=== PATIENT | male | born 1960 | race Caucasian/White ===

== ENCOUNTER 2024-07-04 05:25 | Observation (INO) ==
--- NOTE | 2024-06-02 11:05 | PAT Medication Instructions ---
Medication Instructions Date of Service June 02, 2024 Home Medications Medication Instructions Recorded nicotine 7 mg/24 hr daily 1 patch transdermal Q24H #7 ea 03/25/24 transdermal patch (Nicoderm CQ) tramadol 50 mg tablet 50 mg PO Q4H PRN pain #60 tabs 04/28/24 Wheeled Walker #1 ea 05/06/24 diclofenac sodium 75 mg 75 mg PO BID #60 tabs 05/13/24 tablet,delayed release atorvastatin 10 mg tablet 10 mg PO QPM #90 tabs 05/14/24 metformin 500 mg tablet 500 mg PO BID #60 tabs 05/30/24 nicotine 7 mg/24 hr daily transdermal patch (Nicoderm CQ) 1 patch transdermal Q24H tramadol 50 mg tablet 50 mg PO Q4H PRN diclofenac sodium 75 mg tablet,delayed release 75 mg PO BID atorvastatin 10 mg tablet 10 mg PO QPM aspirin 81 mg tablet,delayed release 81 mg PO QAM baclofen 10 mg tablet 10 mg PO HS fluticasone propionate 220 mcg/actuation HFA aerosol inhaler 1 puff inhalation BID PRN metformin 500 mg tablet 500 mg PO BID ASK your surgeon for instructions diclofenac sodium 75 mg tablet,delayed release 75 mg PO BID ASK your prescriber and surgeon nicotine 7 mg/24 hr daily transdermal patch (Nicoderm CQ) 1 patch transdermal Q24H aspirin 81 mg tablet,delayed release 81 mg PO QAM DO NOT take the morning of surgery metformin 500 mg tablet 500 mg PO BID Take morning of surgery With a small sip of water, OTHERWISE NOTHING TO EAT OR DRINK AFTER MIDNIGHT: tramadol 50 mg tablet 50 mg PO Q4H PRN(if needed) fluticasone propionate 220 mcg/actuation HFA aerosol inhaler 1 puff inhalation BID PRN(use if needed; please bring with you to hospital day of surgery if possible) Take evening before surgery tramadol 50 mg tablet 50 mg PO Q4H PRN(if needed) atorvastatin 10 mg tablet 10 mg PO QPM baclofen 10 mg tablet 10 mg PO HS fluticasone propionate 220 mcg/actuation HFA aerosol inhaler 1 puff inhalation BID PRN(if needed) metformin 500 mg tablet 500 mg PO BID Other Notes If you have any questions please call us at [phone] or [phone] or [phone] or [phone]
--- NOTE | 2024-06-04 11:33 | Anesthesiology Consultation ---
Date of Service June 04, 2024 Assessment & Plan (1) Encounter for pre-operative examination: - awaiting [place] cardiology clearance response to workload note. - check BSG am DOS. - cardiology office visit 05/14/24 [place]: "...Reported coronary disease although I d o not have any records regarding severity of stenosis, extent of disease, etc. His blood pressure and heart rate are at target. He really needs to stop smoking and now that he has known diabetes this needs to be treated aggressively. He will be on guideline directed medical therapy as tolerated. This would include low-dose aspirin, statin, beta-miguel, and ARB/RICH inhibitor given his diabetes. He may not be able to tolerate the beta-miguel and the ARB/RICH because of his blood pressure but we shall see. Also, if patient is to undergo surgery he would likely be low risk if in fact his cath showed only mild disease. If we do not receive his records, then we will order a Lexiscan stress MPI..." Workload note sent to [place] cardiology for clearance. Surgeon's office made aware. Chart Review Chart Review: Pending: Refer to Additional Notes / Consult section and Patient seen in Pre Admission Testing Teaching & Discussion Pre-Anesthesia Teaching/Discussion Notes: Instructed NPO after midnight before surgery, except medications with 15 cc of water. Medication instructions provided according to the PAT guidelines. History Surgery Operation Date: 07/04/24 11:00 Proposed Procedures p Right Total Knee Arthroplasty - Enio Persaud DO Height/Weight Height: 5 ft 8 in Weight: 100.9 kg Allergies Allergy/AdvReac Type Severity Reaction Status Date / Time cyclobenzaprine AdvReac Severe Nightmares Verified 06/02/24 09:20 [From Flexeril] Medications Home Medications Medication Instructions Recorded Confirmed Last Taken nicotine 7 mg/24 hr daily 1 patch transdermal Q24H #7 ea 03/25/24 06/02/24 Unknown transdermal patch (Nicoderm CQ) tramadol 50 mg tablet 50 mg PO Q4H PRN pain #60 tabs 04/28/24 06/02/24 Unknown Wheeled Walker #1 ea 05/06/24 06/02/24 Unknown diclofenac sodium 75 mg 75 mg PO BID #60 tabs 05/13/24 06/02/24 Unknown tablet,delayed release atorvastatin 10 mg tablet 10 mg PO QPM #90 tabs 05/14/24 06/02/24 Unknown aspirin 81 mg tablet,delayed 81 mg PO QAM 05/30/24 06/02/24 Unknown release baclofen 10 mg tablet 10 mg PO HS 05/30/24 06/02/24 Unknown fluticasone propionate 220 1 puff inhalation BID PRN 05/30/24 06/02/24 Unknown mcg/actuation HFA aerosol inhaler Shortness Of Breath Or Wheezing metformin 500 mg tablet 500 mg PO BID #60 tabs 05/30/24 06/02/24 Unknown peg 3350-sod [id number] See Rx Instructions PO .COMPLEX #2 06/04/24 Unknown 178.7-7.3-0.5-1.12-0.9 gram oral mL soln (Suflave) Past Medical History Medical History (Updated 06/04/24 @ 11:44 by Kay Hess PA-C) Asthma allergy induced - prn inhaler Chronic recurrent sinusitis per hx, nothing recent Coronary artery disease no stents - [facility] [place] Cardiology - Dr Rodriguez Diabetes mellitus, type 2 NIDDM Dyslipidemia GERD (gastroesophageal reflux disease) controlled, stable per pt Hx of fall (12/2023) broke tailbone- no surgery/ given baclofen Hx of fracture (12/2023) sacral, due to fall Hypertension controlled, stable per pt Osteoarthritis of knee Tinnitus, bilateral Patient denies h/o stroke, seizures, heart attack, heart failure, blood clots/DVTs or blood transfusions. Exercise / Class Metabolic Activity III < 4 Walking/Shop/Light housework (denies chest discomfort or shortness of breath with usual activities) Past Family History Family History Father Myocardial infarction Quadruple bypass Brother Myocardial infarction Lung cancer Denies family history of Ovarian cancer Prostate cancer Breast cancer Colorectal cancer Past Surgical History Surgical History History of back surgery (2007) 2008, Lumbar - laser - herniated disc History of cardiac catheterization (12/2023) [facility] -- no stents- told 2 minor blockages and treating with meds- follows with te (05/13) S/p bilateral myringotomy with tube placement as a child, multiple times Past Anesthesia History No Hx of Anesthesia Complications and No Family Hx of Anesthesia Complications History of PONV No Hx of PONV and No Hx of Motion Sickness Social History Smoking Status: Current every day smoker Smoking cigarettes per day: 5-6 cigs per day (Advised) Do You Dip or Chew Tobacco: No Hx Alcohol Use: Yes Alcohol type: beer and hard liquor alcohol intake frequency: a few times a week Hx Substance Use: No substance use type: does not use Review of Systems Patient denies chest pain, shortness of breath, dyspnea on exertion, snoring, witnessed apneas, fever, chills, cough, wheezing, or palpitations. Physical Exam Vital Signs Vitals BP 150/84 P 76 TEMP 97.9 SP02 96% on RA RESP 18 Physical Patient resting comfortably in chair in no acute distress, alert and oriented, responding appropriately throughout visit Full cervical extension range of motion without pain TMD 3 finger breadths Mallampati Score 2 Dentition: edentulous, full upper and lower dentures Lungs: normal respiratory effort. Good air movement, end expiratory wheezing, no rales or rhonchi Cardiac: regular rate and rhythm, no murmurs noted Carotid arteries: negative bruit bilat Lab Results Anesthesia Preop Results Results Anesthesia Widget: WBC 8.28 K/ul (4.8-10.8) 06/04/24 Hgb 13.3 g/dl (14.0-18.0) L 06/04/24 Hct 38.2 % (42.0-52.0) L 06/04/24 Plt 219 K/uL (130-400) 06/04/24 Na 137 mmol/L (136-145) 06/04/24 K 4.1 mmol/L (3.5-5.1) 06/04/24 Cl 104 mmol/L (98-107) 06/04/24 CO2 25 mmol/L (21-32) 06/04/24 BUN 17 mg/dl (6-23) 06/04/24 Creat 0.83 mg/dl (0.6-1.4) 06/04/24 Glucose Level 167 mg/dl (70-99(Fasting)) H 06/04/24 PT 10.9 Seconds (9.0-12.0) 06/04/24 PTT 27 Seconds (21-31) 06/04/24 INR 1.0 (0.9-1.1) 06/04/24 HA1c 7.6 % (4.5-5.6) H 06/04/24 Blood Type A Positive 06/04/24 Antibody Screen NEGATIVE 06/04/24 Testing Electrocardiogram Date: 05/14/24 Sinus rhythm with PACs, rate 71 bpm Low voltage QRS Chest X-Ray Date: 06/04/24 No acute findings. Other Testing Low dose lung CT 03/26/24 1. No suspicious pulmonary nodules. 2. Small cluster of ill-defined tree-in-bud nodules within the anterior basal segment of the left lower lobe. These favor bronchiolitis. 3. Mild bilateral lower lobe bronchial wall thickening.
--- NOTE | 2024-07-02 07:53 | History & Physical Report ---
Date of Service July 02, 2024 Assessment & Plan (1) Osteoarthritis of right knee: We will proceed with a right total knee arthroplasty. Postoperatively, he will be started on aspirin for DVT prophylaxis and kept overnight in the hospital for postop medical management. He plans to have the hospital set up home health for discharge. History of Present Illness Chief Complaint: Osteoarthritis of the right knee. Primary Care Provider: Jhonathan Harmon DO Lorenzo is a pleasant 63-year-old male who has been dealing with chronic increasing right knee pain. X-rays and clinical examination have been diagnostic for advanced osteoarthritis of the right knee. He is seeing one of my nonoperative partners and was diagnosed with advanced arthritis. After failing conservative treatment, he has elected to proceed with a right total knee arthroplasty. Allergies Allergy/AdvReac Type Severity Reaction Status Date / Time cyclobenzaprine AdvReac Severe Nightmares Verified 06/18/24 09:43 [From Flexeril] Home Medications Medication Instructions Recorded Confirmed Type nicotine 7 mg/24 hr daily 1 patch transdermal Q24H #7 ea 03/25/24 06/18/24 Rx transdermal patch (Nicoderm CQ) tramadol 50 mg tablet 50 mg PO Q4H PRN pain #60 tabs 04/28/24 06/18/24 Rx Wheeled Walker #1 ea 05/06/24 06/02/24 Rx atorvastatin 10 mg tablet 10 mg PO QPM #90 tabs 05/14/24 06/18/24 Rx aspirin 81 mg tablet,delayed 81 mg PO QAM 05/30/24 06/18/24 History release baclofen 10 mg tablet 10 mg PO HS 05/30/24 06/18/24 History fluticasone propionate 220 1 puff inhalation BID PRN 05/30/24 06/18/24 History mcg/actuation HFA aerosol inhaler Shortness Of Breath Or Wheezing metformin 500 mg tablet 500 mg PO BID #60 tabs 05/30/24 06/18/24 Rx diclofenac sodium 75 mg 75 mg PO BID #60 tabs 06/10/24 06/18/24 Rx tablet,delayed release Past Med/Surg History Problem List Colon cancer screening Encounter for pre-operative examination Diabetes mellitus, type 2 no medications Tinnitus, bilateral Benign essential hypertension Atherogenic dyslipidemia Osteoarthritis of right knee Chronic recurrent sinusitis Coronary artery disease Medical History GERD (gastroesophageal reflux disease) controlled, stable per pt Chronic recurrent sinusitis per hx, nothing recent Hx of fracture (12/2023) sacral, due to fall Hx of fall (12/2023) broke tailbone- no surgery/ given baclofen Osteoarthritis of knee Tinnitus, bilateral Diabetes mellitus, type 2 NIDDM Coronary artery disease no stents - [facility] [place] Cardiology - Dr Rodriguez Dyslipidemia Asthma allergy induced - prn inhaler Hypertension controlled, stable per pt Surgical History History of cardiac catheterization (12/2023) [facility] -- no stents- told 2 minor blockages and treating with meds- follows with te (05/13) S/p bilateral myringotomy with tube placement as a child, multiple times History of back surgery (2007) 2007, Lumbar - laser - herniated disc Family History Father Myocardial infarction Quadruple bypass Brother Myocardial infarction Lung cancer Denies family history of Ovarian cancer Prostate cancer Breast cancer Colorectal cancer Social History Smoking Status: Current every day smoker Tobacco Type: Cigarettes Age Started Using Tobacco: 13; packs per day: 1; Cigarettes Per Day: 5-6 cigs per day (Advised); Second Hand Exposure: No; Do You Dip or Chew Tobacco: No; Hx Alcohol Use: Yes Alcohol type: beer and hard liquor Alcohol Intake Frequency: 2-3 x/Week Hx Substance Use: No Preferred Language: Montserratian Communication Ability: Effective Visual Impairment: No Limitations Hearing Ability: Normal Copy Worker Required: No Beliefs That Will Affect Care: Nondenominational Nondenominational Beliefs: quaker marital status: Current Living Situation: Alone Current Living Situation Comment: senior center current occupational status: retired How many Children do You have: 1 Feels Safe at Home: Yes Childhood Exposure to Second-Hand Smoke: Yes Diet: regular caffeine: Yes Dental Care, Regularly: No Physical Activity Frequency: Does not Exercise Seatbelt Use: always Sunscreen Use: No ("I stay out of the sun, I had sun poisoning. Direct sunlight is very irrita) Assistive Devices: Denture - Upper, Denture - Lower, Glasses, Hearing Aid - Bilateral and Walker Review of Systems All systems reviewed & are unremarkable except as noted in HPI & below. Physical Exam On physical exam of the right knee, he has a slight varus deformity. Tenderness palpation over the distal medial femoral condyle and over the medial joint line. Constitutional WD/WN, vitals as above Eyes PERRL, conjunctivae normal, anicteric sclerae ENMT external ear and nose normal, oropharynx normal Neck trachea midline, no thyromegaly Respiratory normal respiratory effort Cardiovascular RRR, no murmur, no edema Gastrointestinal (Abdomen) normal bowel sounds, soft, nontender, no hepatosplenomegaly Psychiatric A+Ox3, euthymic affect Results & Data Results & Data Laboratory Results . Diagnostic Findings X-rays of the right knee show advanced medial compartment arthritis with joint space narrowing, osteophyte formation, and fenu-im-uorw articulation.. . PG Care Time/CCT Total # of Minutes Spent Total Time Spent with Patient: Total time spent is greater than 50% in coordination of care (as documented) at patient's floor/unit and/or counseling patient: Coding Level of Care Code None Diagnoses Osteoarthritis of right knee M17.11
--- NOTE | 2024-07-02 14:17 | Anesthesiology Consultation ---
Date of Service July 02, 2024 Assessment & Plan (1) Encounter for pre-operative examination: Plan - check BSG am DOS. - [place] cardiology clearance 06/11/24: "...We received the cardiac cath report. Performed in November 2023. At that time he had mild nonocclusive disease in the LAD and RCA. As such, that would place him at low risk for myocardial ischemic complication of noncardiac surgery. Per AHA/ACC guidelines he should then proceed with the planned surgery without further testing. Okay to undergo right total knee arthroplasty in June as planned..." - Outpatient joint assessment: Patient is currently scheduled for inpatient pathway. If re-evaluated and patient/surgeon requests outpatient pathway, patient is not ideal candidate for outpatient joint program from anesthesia standpoint. Chart Review Chart Review: Acceptable Risk for Surgery and Patient NOT seen in Pre Admission Testing History Surgery Operation Date: 07/04/24 11:00 Proposed Procedures p Right Total Knee Arthroplasty - Enio Persaud, Height/Weight Height: 5 ft 8 in Weight: 100.9 kg Allergies Allergy/AdvReac Type Severity Reaction Status Date / Time cyclobenzaprine AdvReac Severe Nightmares Verified 06/18/24 09:43 [From Flexeril] Medications Home Medications Medication Instructions Recorded Confirmed Last Taken nicotine 7 mg/24 hr daily 1 patch transdermal Q24H #7 ea 03/25/24 06/18/24 Unknown transdermal patch (Nicoderm CQ) tramadol 50 mg tablet 50 mg PO Q4H PRN pain #60 tabs 04/28/24 06/18/24 06/17/24 14:00 Wheeled Walker #1 ea 05/06/24 06/02/24 Unknown atorvastatin 10 mg tablet 10 mg PO QPM #90 tabs 05/14/24 06/18/24 Unknown aspirin 81 mg tablet,delayed 81 mg PO QAM 05/30/24 06/18/24 06/16/24 release baclofen 10 mg tablet 10 mg PO HS 05/30/24 06/18/24 Unknown fluticasone propionate 220 1 puff inhalation BID PRN 05/30/24 06/18/24 Unknown mcg/actuation HFA aerosol inhaler Shortness Of Breath Or Wheezing metformin 500 mg tablet 500 mg PO BID #60 tabs 05/30/24 06/18/24 06/17/24 04:00 diclofenac sodium 75 mg 75 mg PO BID #60 tabs 06/10/24 06/18/24 06/16/24 tablet,delayed release Past Medical History Medical History GERD (gastroesophageal reflux disease) controlled, stable per pt Chronic recurrent sinusitis per hx, nothing recent Hx of fracture (12/2023) sacral, due to fall Hx of fall (12/2023) broke tailbone- no surgery/ given baclofen Osteoarthritis of knee Tinnitus, bilateral Diabetes mellitus, type 2 NIDDM Coronary artery disease no stents - [facility] [place] Cardiology - Dr Rodriguez Dyslipidemia Asthma allergy induced - prn inhaler Hypertension controlled, stable per pt Past Family History Family History Father Myocardial infarction Quadruple bypass Brother Myocardial infarction Lung cancer Denies family history of Ovarian cancer Prostate cancer Breast cancer Colorectal cancer Past Surgical History Surgical History History of cardiac catheterization (12/2023) [facility] -- no stents- told 2 minor blockages and treating with meds- follows with te (05/13) S/p bilateral myringotomy with tube placement as a child, multiple times History of back surgery (2007) 2007, Lumbar - laser - herniated disc Social History Smoking Status: Current every day smoker Smoking cigarettes per day: 5-6 cigs per day (Advised) Do You Dip or Chew Tobacco: No Hx Alcohol Use: Yes Alcohol type: beer and hard liquor alcohol intake frequency: a few times a week Hx Substance Use: No substance use type: does not use Testing Electrocardiogram Date: 05/14/24 Sinus rhythm with PACs, rate 71 bpm Low voltage QRS Chest X-Ray Date: 06/04/24 No acute findings. Stress Test Date: 11/13/23 Mild apical, lateral, inferior and inferolateral ischemia EF 59% Cardiac Catheterization Date: 11/22/23 Left main: patent LAD: 40-50% stenosis Lcx: 40-50% stenosis RCA: mild luminal irregularities Other Testing Low dose lung CT 03/26/24 1. No suspicious pulmonary nodules. 2. Small cluster of ill-defined tree-in-bud nodules within the anterior basal segment of the left lower lobe. These favor bronchiolitis. 3. Mild bilateral lower lobe bronchial wall thickening.
[2024-07-04] MEDS: LR 500ML BOLUS, THEN 15ML/HR IV SCH (06:08)
[2024-07-04] MEDS: LR 60ML/HR IV SCH (06:11)
[2024-07-04] MEDS: ACETAMINOPHEN 500 MG TAB PO SCH (06:12)
[2024-07-04] MEDS: GABAPENTIN 300 MG CAP PO SCH (06:12)
[2024-07-04] MEDS: dexAMETHasone**PF** 10 MG/ML VIAL IV SCH (06:12)
[2024-07-04] MEDS: FAMOTIDINE 20 MG TAB PO SCH (06:12)
[2024-07-04] MEDS ORDERED: ROPIVACAINE 0.5% 5 MG/ML 30 ML VIAL ONE (06:26)
[2024-07-04] MEDS ORDERED: ePHEDrine sulfate 50 MG/ML AMP IV PRN (06:36)
[2024-07-04] MEDS ORDERED: HYDROmorphone INJ 1 MG/ML SYRINGE IV PRN (06:36)
[2024-07-04] MEDS ORDERED: ATROPINE SULFATE 0.1 MG/ML 10ML SYR IV PRN (06:36)
[2024-07-04] MEDS ORDERED: KETOROLAC 30 MG/ML VIAL IV PRN (06:36)
[2024-07-04] MEDS ORDERED: PROMETHAZINE HCL 6.25 MG in SODIUM CHLORIDE 0.9% 50 ML IV PRN (06:36)
[2024-07-04] MEDS ORDERED: ONDANSETRON INJ 2 MG/ML 2 ML VIAL IV PRN ×2 (06:36→10:02)
[2024-07-04] MEDS: TRANEXAMIC ACID 1,000 MG **IV Pre-op IV SCH (06:40)
--- NOTE | 2024-07-04 06:47 | History & Physical Bridge Note ---
Date of Service July 04, 2024 History & Physical Bridge Note I have examined the patient, reviewed the History & Physical and in the interval since the performance of the History & Physical I have noted the following changes of clinical significance: no changes noted
[2024-07-04] MEDS: ceFAZolin 2000MG 2,000 MG/15 ML SYR IV SCH ×2 (07:00→14:35)
[2024-07-04] MEDS: ORTHO JOINT ANESTHETIC ONE (07:20)
[2024-07-04] MEDS ORDERED: MIDAZOLAM HCL 1 MG/ML 2ML VIAL ONE ×2 (07:20→07:21)
[2024-07-04] MEDS ORDERED: ONDANSETRON INJ 2 MG/ML 2 ML VIAL ONE (07:28)
[2024-07-04] MEDS ORDERED: PROPOFOL IV EMULSION 10 MG/ML 20 ML VIAL IV ONE ×2 (07:28→08:28)
[2024-07-04] MEDS: ROPIV 0.5% 246mg, Ketorolac 30mg, EPINEPHrine 0.5mg in NSS INFIL SCH (07:41)
[2024-07-04] MEDS: TRANEXAMIC ACID 1,000 MG **IV Intra-op IV SCH (07:55)
--- NOTE | 2024-07-04 08:02 | Operative Report ---
PG Post Operative Report Pre & Post Diagnosis Operation Date: 07/04/24 07:00 Pre-Op Diagnosis: Osteoarthritis of right knee Post-Op Diagnosis: Osteoarthritis of right knee I identified the patient and participated in the time-out.: Yes Procedure Operation Date: 07/04/24 07:00 Actual Procedures p Right Total Knee Arthroplasty, Cemented(Right) - Enio Persaud DO Surgeon Enio Persaud DO Celery Stripper Willi Cruz PA-C Estimated Blood Loss 50 Findings Consistent with Post-Op Diagnosis Specimens Right femoral and tibial bone Description of Procedure Implants used: I used a Fracisco Persona total knee arthroplasty system with a size 8 standard femur, F tibia, 34 oval patella, and a size 14 CPS polyethylene bearing. All components were cemented in place with Biomet cement. Lorenzo arrived [facility] for the above procedure. He was seen in the preoperative holding area and the operative extremity was identified and signed. He was given a preoperative antibiotic, TXA, a spinal anesthetic and an adductor nerve block. He was taken back to the operating room and laid on the table in supine position. He was given basic sedation. The operative knee was then prepped and draped in sterile fashion. A timeout was done, and the patient and the operative extremity was properly identified. A midline incision was made directly over the patella. Dissection was taken down to the extensor mechanism. A medial parapatellar arthrotomy was used. The medial retinaculum was released and the fat pad was mostly excised. The knee was flexed and the ACL, PCL, and meniscus were removed. A drill was sent down the center of the femoral canal followed by an intramedullary helen. Off that helen a distal femoral cutting block was placed. 9 mm was resected off the distal femur at 5 of valgus. A posterior referencing AP sizing guide was then placed on the distal femur. The femur measured to be a size 8. 2 drill holes were placed in 3 of external rotation. A 4-in-1 cutting block was then impacted into place. Anterior, posterior, and chamfer cuts were then made. The proximal tibia was then exposed. An external tibial alignment guide was placed. A tibial cut guide was then anchored in place and the proximal tibia was then resected. The posterior aspect of the knee was then opened up and any additional meniscus fragments and osteophytes were removed. The tibia measured to be a size F. The tibial plate was then placed in the appropriate rotation and the tibia was drilled and punched. Trial components were then placed. I used a size 14 CPS polyethylene insert. The knee was brought through a full range of motion and felt to be stable. The peg holes for the femoral component were then drilled. The patella was then everted and 9 mm was resected off the posterior aspect of the patella. The patella measured to be a size 34 oval. 3 peg holes were then drilled. A trial patella was placed. The knee was once again brought through a full range of motion and felt to be stable. Trial components were then removed. The surrounding soft tissues were injected with 100 cc of an orthopedic pain control cocktail. All components were then cemented into place with Biomet cement. The final polyethylene insert was then snapped into place. Once cement was dry the tourniquet was deflated. Hemostasis was obtained. A dilute betadyne lavage was then done for 3 minutes. The joint was then irrigated with normal saline solution. The medial parapatellar arthrotomy was then closed with #1 Vicryl suture. The skin was closed with 2-0 Vicryl, 3-0V lock suture, and natalie. A soft compressive dressing was placed. He was then transferred to a hospital bed and taken to the postanesthesia care unit in stable condition. He tolerated the procedure well. Willi Cruz PA-C, was present for the entire procedure. He was critical for patient positioning, prepping, draping, retraction exposure, wound closure and application of sterile dressing. I attest to the content of the Intraoperative Record and any orders documented therein. Any exceptions are noted below.
--- NOTE | 2024-07-04 08:58 | XRay Report ---
XR knee RT 1 or 2V routine CLINICAL HISTORY: Surgical Post Op COMPARISON: 03/28/2024 FINDINGS: Interval right knee prosthesis shows no hardware complication. There is expected soft tiss ue gas. Skin natalie are present. IMPRESSION: Unremarkable postoperative exam. ACT 112: Negative or not required by law. Electronically signed by: Henrique Esposito M.D. 07/04/2024 8:56 AM
--- NOTE | 2024-07-04 09:49 | Anesthesiology Progress Note ---
Date of Service July 04, 2024 Anesthesia Post Procedure Vital Signs Vital Signs: Temp Pulse Resp BP Pulse Ox O2 Del Method O2 Flow Rate 07/04/24 09:45 60 20 113/71 96 Room Air 07/04/24 09:30 65 15 102/63 98 Room Air 07/04/24 09:15 58 L 21 113/74 98 Room Air 07/04/24 09:00 36.4 C L 50 L 19 112/63 99 Room Air 07/04/24 08:50 55 L 22 129/74 100 Nasal Cannula 2 07/04/24 08:40 56 L 23 116/62 100 Nasal Cannula 2 07/04/24 08:30 60 23 113/66 100 Nasal Cannula 2 07/04/24 08:24 36.4 C L 69 23 113/78 95 Nasal Cannula 2 07/04/24 05:42 36.5 C 65 18 131/75 96 Room Air Transfer of Care Handoff Completed per policy Notes Mental Status: alert / awake / arousable Patient Amnestic to Procedure: Yes Nausea / Vomiting: adequately controlled Pain: adequately controlled Airway Patency, RR, SpO2: stable & adequate BP & HR: stable & adequate Hydration State: stable & adequate Neuraxial Anesthesia: was administered and sensory block is resolving Anesthetic Complications: no major complications apparent
[2024-07-04] MEDS ORDERED: bisacodyL 10 MG SUPP PR PRN (10:02)
[2024-07-04] MEDS ORDERED: METOCLOPRAMIDE HCL INJ 5 MG/ML 2 ML VIAL IV PRN (10:02)
[2024-07-04] MEDS ORDERED: MAGNESIUM HYDROXIDE SUSP 30 ML UDC PO PRN (10:02)
[2024-07-04] MEDS ORDERED: metFORMIN HCL 500 MG TAB PO SCH (10:02)
[2024-07-04] MEDS ORDERED: NALOXONE HCL 0.4 MG/1 ML VIAL/CARP IV PRN (10:02)
[2024-07-04] MEDS: INSULIN ASPART PER UNIT CHARGE SC STA (10:44)
[2024-07-04] MEDS: INSULIN ASPART PER UNIT CHARGE ONE (10:45)
[2024-07-04] MEDS ORDERED: PHARMACY GLYCEMIC MGMT CONSULT PRN (11:21)
[2024-07-04] MEDS: MULTIVITAMIN TAB PO SCH (11:24)
[2024-07-04] MEDS: KETOROLAC TROMETHAMINE 15 MG/ML VIAL IV SCH (11:24)
[2024-07-04] MEDS: DOCUSATE SODIUM 100 MG CAP PO SCH (11:24)
[2024-07-04] MEDS: ASPIRIN 81 MG ECTAB PO SCH (11:29)
[2024-07-04] MEDS: NICOTINE 14 MG/24 HR PATCH TD SCH (11:29)
[2024-07-04] MEDS ORDERED: LANTUS PER UNIT CHARGE SC ONE (12:00)
[2024-07-04] MEDS: LANTUS PER UNIT CHARGE SC ONE ×2 (12:21→22:13)
[2024-07-04] MEDS: INSULIN ASPART PER UNIT CHARGE SC SCH (12:21)
[2024-07-04] MEDS: HYDROmorphone INJ 0.5 MG/0.5 ML SYR IV PRN (13:00)
[2024-07-04] MEDS ORDERED: ceFAZolin 1000MG 1,000 MG/7.5 ML SYR IV SCH (14:30)
--- NOTE | 2024-07-04 14:35 | Pharmacy Report ---
Pharmacy Glycemic Short Note 2 - Date of Service July 04, 2024 - Glycemic Short BSG Results (Last 24 hours): 07/04/24 07/04/24 07/04/24 06:24 08:28 09:00 POC Glucose 243 H 276 H 263 H 07/04/24 07/04/24 11:43 11:44 POC Glucose 347 H* 351 H* OUTPATIENT ANTIDIABETIC REGIMEN: * metformin 500mg po BID HbA1c: 7.6% on 06/04/24 ASSESSMENT: * 63 year old male admitted 06/24 for a right total knee arthroplasty (POD#0). Pharmacy was consulted for glycemic management postop. * Preop BSG was 243mg/dL and postop BSG was 276mg/dL. Patient received 10mg iv dexamethasone preop. He received 5 units of Novolog SQ in PACU at 1045, but lunch BSG carrie to 351mg/dL. * Lantus 25 units x 1 was ordered and he was started on a weight based bolus insulin regimen with a stress of 2. PLAN FOR INPATIENT GLYCEMIC CONTROL: * Hold outpatient oral diabetes medications * Basal insulin * Lantus 25 units SQ x 1, further need will be assessed with additional BSGs * Bolus insulin * NovoLog per scale ACHS or Q6hrs while NPO * Goal Range: Low 110 mg/dL - High 140 mg/dL * Correction Factor: 25 mg/dL/unit * Nutritional / Prandial insulin per carb ratio of 1 unit per 8 grams CHO consumed
[2024-07-04] MEDS ORDERED: GLUCOSE 40% GEL 15 GM TUBE PO PRN (15:00)
[2024-07-04] MEDS ORDERED: GLUCOSE 10 TAB/TUBE PO PRN (15:00)
[2024-07-04] MEDS ORDERED: DEXTROSE 50% 50 ML SYRINGE IV PRN (15:00)
[2024-07-04] MEDS ORDERED: GLUCAGON FOR INJ 1 MG VIAL SQ PRN (15:00)
[2024-07-04] MEDS ORDERED: CARBOHYDRATES FOR HYPOGLYCEMIA PO PRN (15:00)
[2024-07-04] MEDS: SENNA 8.6 MG TAB PO SCH (20:17)
[2024-07-04] MEDS: ATORVASTATIN 10 MG TAB PO SCH (20:18)
[2024-07-05] MEDS: INSULIN ASPART PER UNIT CHARGE SC SCH (02:18)
[2024-07-05] MEDS: INSULIN ASPART PER UNIT CHARGE SC STA (04:24)
--- NOTE | 2024-07-05 06:59 | Discharge Summary ---
Date of Service July 05, 2024 Admission HPI (Per Admitting) Lorenzo is a pleasant 63-year-old male who has been dealing with chronic increasing right knee pain. X-rays and clinical examination have been diagnostic for advanced osteoarthritis of the right knee. He is seeing one of my nonoperative partners and was diagnosed with advanced arthritis. After failing conservative treatment, he has elected to proceed with a right total knee arthroplasty. Admission Exam (Per Admitting) On physical exam of the right knee, he has a slight varus deformity. Tenderness palpation over the distal medial femoral condyle and over the medial joint line. Principal Diagnosis Same as "Discharge Diagnosis" noted below under Discharge Instructions. Discharge Exam On physical exam of the right knee, the dressing is clean and dry. His leg is out full extension. He has active dorsiflexion and plantarflexion of his right ankle.. Discharge Data Procedures Performed Operation Date: 07/04/24 07:00 Actual Procedures p Right Total Knee Arthroplasty, Cemented(Right) - Enio Persaud DO Ordered Studies 07/04/24 05:00 US - OR guided needle placemen Routine Hospital Course (1) Status post right knee replacement: On July 04, 2024 Lorenzo arrived at [facility] and underwent a right knee replacement without complication. He had a spinal anesthetic. Postoperatively, he was started on aspirin for DVT prophylaxis and transferred to the general orthopedic floors. His hospital course is uneventful. On postop day #1, his vital signs were stable and his pain was well-controlled. He was able to participate well with physical therapy doing ambulation and range of motion exercises. He was then discharged to home. He will follow-up with orthopedics in 2 weeks. PG Care Time/CCT Total # of Minutes Spent Total Time Spent with Patient: Total time spent is greater than 50% in coordination of care (as documented) at patient's floor/unit and/or counseling patient: Discharge Plan Discharge Items Patient Disposition: Home - Self-Care Reason For Visit: Right Knee Arthritis Discharge Diagnosis: Right knee replacement Activity: Per Instructions section Non-emergency contact: Surgeon Call non-emergency contact if: your wound has increased redness and your wound has increased drainage Follow-up/Referrals: Jhonathan Harmon DO [Primary Care Provider] - Diet: Regular Ambulatory Orders: Hemoglobin A1C (Glycosylated) (Routine) Timeframe: [id number] Location: Determined by Patient Ordered By: Kay Davenport Attending Provider Instructions: Activity and Therapy Recommendations: * If you are using [facility] then therapy will be provided at your home until they feel you have accomplished all of your goals. * If you are using [facility] then Physical Therapy will be provided until they feel you are ready to start Outpatient Physical Therapy. * If you are not using home therapy then Outpatient Physical Therapy should start about 3-5 days from your day of surgery. Therapy will last about 6-10 weeks * It is important not to put a pillow under your knee when you are relaxing or sleeping. It is just as important to make sure you are getting your knee perfectly straight as it is to regain your knee bend. * You were shown a series of exercises in the hospital. Do these exercises three times each day including the exercises you were shown in physical therapy. * Get up and walk several times each day. For the first four weeks, try not to stand or walk for more than one hour at a time. If you do stand or walk for more than one hour, you will not hurt anything, but your leg will likely swell. * As you feel comfortable, you may change from the walker or crutches to a cane and then to independent walking. Medications: * Narcotic You will likely be sent home from the hospital with a prescription for the narcotic pain medication that worked best throughout your stay. * Cefadroxil -take the antibiotic twice a day for 10 days to help prevent infection. * Aspirin Most patients will be required to take Aspirin 81mg twice a day for 6 weeks after surgery. This is obtained [id number] and a prescription is not necessary. * Other medications may be prescribed for specific circumstances. If you have any questions, please call the office at . * Resume previous home medications unless otherwise instructed TEDs/Elastic Stockings: The white elastic stockings help limit swelling and prevent blood clots from forming in your legs.~ The more you wear them, the more they work. Wear them for 2 weeks. Dressing Care: The dressing can be changed after physical therapy on postop day #1. Daily dry dressing changes for a few days, especially if the incision is still draining some. If the incision is not draining then you may leave the natalie open to air. If there is a little bit of drainage or if the natalie are getting stuck on your clothing then cover the incision with a dry dressing. The natalie will be removed at your 2 week follow-up appointment. Showering: You may shower 5 days from the day of surgery as long as the incision is no longer draining. You may shower with the natalie exposed. Let soapy water run over the natalie and pat them dry. Do not scrub or soak the incision. Diet: You may resume your previous diet. Things To Watch For: * Drainage from the incision site that occurs more than one week after your surgery. * Increased redness at the incision site. * Fever above 102 degrees Fahrenheit. * Unusual chest pain or shortness of breath. * Call [facility] at with any of the above problems Follow-Up Visit: Follow-up with Dr. Persaud's office 2-3 weeks after your day of surgery. We will remove your natalie and answer any questions. If you have any additional questions or concerns, Dr Persaud is usually in the office at the same time and will be available An appointment was probably scheduled when you signed-up for surgery in the office. If you have any questions call Office Instructions: More detailed instructions as well as Frequently Asked Questions were provided in a folder by our office when you signed-up for surgery. Please review these instructions when you get home. If you have any further questions or concerns, please feel free to call the office at [phone] Pending Studies at Discharge: No Stand-Alone Forms: My [facility], Smoking Cessation Medications and DC Order Prescriptions: New cefadroxil 500 mg capsule 500 mg PO BID 10 Days Qty: 20 0RF oxycodone 5 mg tablet 5 mg PO Q6H PRN (Reason: pain) Qty: 30 0RF Continued (DME) Wheeled Walker Misc See Rx Instructions .MEDSUPPLY Qty: 1 0RF Rx Instructions: As directed diclofenac sodium 75 mg tablet,delayed release (DR/EC) 75 mg PO BID Qty: 60 0RF tramadol 50 mg tablet 50 mg PO Q4H PRN (Reason: pain) Qty: 60 0RF metformin 500 mg tablet 500 mg PO BID Qty: 60 2RF Rx Instructions: Take one daily x 7 days, then twice daily nicotine [Nicoderm CQ] 7 mg/24 hr patch 24 hour 1 patch transdermal Q24H Qty: 7 2RF Patient Comments: "I never got that patches" atorvastatin 10 mg tablet 10 mg PO QPM Qty: 90 3RF baclofen 10 mg tablet 10 mg PO HS fluticasone propionate 220 mcg/actuation HFA aerosol inhaler 1 puff inhalation BID PRN (Reason: Shortness Of Breath Or Wheezing) Changed aspirin 81 mg tablet,delayed release (DR/EC) 81 mg PO BID 42 Days Qty: 0 0RF Discharge Orders: Discharge Order (Routine); Ordered 07/05/24 Ordered By: Enio Persaud Admission Data Admit Date/Time: 07/04/24 08:26 Attending Provider: Enio Persaud Admit Provider: Enio Persaud Primary Care Provider: Jhonathan Harmon Other Providers: [facility],Home Health
--- NOTE | 2024-07-05 06:59 | Orthopedic Progress Note ---
Date of Service July 05, 2024 Assessment & Plan (1) Status post right knee replacement: Overall he is doing very well. He is not having much pain in the right knee. He will be seen by physical therapy today for ambulation and range of motion exercises. He is on aspirin for DVT prophylaxis. The nursing staff can change his dressing after physical therapy. He will be discharged to home later today. He will follow-up with orthopedics in 2 weeks. Shayne Ventura was seen and examined at bedside this morning. Overall he is doing very well. He is not having much pain in the right knee. He has been up and ambulating to the bathroom. He has no complaints.. Review of Systems All systems reviewed & are unremarkable except as noted in HPI & below. Physical Exam On physical exam of the right knee, the dressing is clean and dry. His leg is out full extension. He has active dorsiflexion and plantarflexion of his right ankle.. Results & Data Results & Data Laboratory Results . Diagnostic Findings Postoperative x-rays of the right knee show the prosthesis to be in anatomic alignment without any evidence of fracture complication, or loosening.. PG Care Time/CCT Total # of Minutes Spent Total Time Spent with Patient: Total time spent is greater than 50% in coordination of care (as documented) at patient's floor/unit and/or counseling patient: Coding Level of Care Code 19637 Post Operative Follow-Up Diagnoses Status post right knee replacement Z96.651
[2024-07-05] MEDS: metFORMIN HCL 500 MG TAB PO SCH (07:47)
[2024-07-05] MEDS: oxyCODONE HCL IR 5 MG TAB (IMMEDIATE RELEASE) PO PRN (07:47)
[2024-07-05 11:37] VITALS: BP 128/70; PULSE 56; RESP 20; TEMP 98.1; O2SAT 96
== END 2024-07-05 11:40 | disposition home or self-care (01) ==
LOC: ASU 05:25 → 3N 05:25

== ENCOUNTER 2024-11-23 18:28 | Inpatient (IN) ==
[2024-11-23] MEDS: SODIUM CHLORIDE 0.9% 1,000 ML IV SCH (18:49)
[2024-11-23] MEDS: ACETAMINOPHEN 1,000 MG/100 ML VIAL IV STA (18:50)
[2024-11-23 18:56] LABS: Base Excess VBG -1.7 mEq/L; HCO3 VBG 22 mmol/L; Oxygen Saturation VBG < 60.0 %; PCO2 VBG 33 mmHg (38-50); PO2 VBG < 20 mmHg; pH VBG 7.43 (7.36-7.41)
[2024-11-23 19:01] LABS: Hematocrit (blood only) 33.8 % (42.0-52.0); Hemoglobin 10.9 g/dl (14.0-18.0); Immature Granulocytes # (auto) 0.20 K/uL (0.01-0.20); Immature Granulocytes % (auto) 1.5 %; Mean Corpuscular Hemoglobin 27.0 pg (25.0-34.0); Mean Corpuscular Volume 83.9 fL (80.0-100.0); Platelet Count 501 K/uL (130-400); RDW Standard Deviation 39.5 fL (36.4-46.3); Red Blood Count 4.03 M/uL (4.70-6.10); White Blood Count 12.95 K/ul (4.8-10.8)
[2024-11-23] MEDS: PIPERACILLIN/TAZOBACTAM 4.5 GM/100 ML BAG IV STA (19:03)
--- NOTE | 2024-11-23 19:08 | Emergency Department Note ---
Impression & Plan Abscess of groin, left, Diverticulitis of large intestine with complication, Acute hyperglycemia, Acute respiratory alkalosis ED Provider Note NAME: NIEVES BECKWITH AGE: 64 SEX: M : 1960 ARRIVES VIA: Ambulance INFORMANT: Patient, EMS ED PROVIDER(S): Eric Onofre DO CHIEF COMPLAINT: abdominal pain HPI: This is a 64-year-old male with the PMHx of CAD, osteoarthritis, hypertension, dyslipidemia, insulin-dependent type 2 diabetes, malnutrition and recent diagnosis of complicated diverticulitis with IR drain in place presenting to [facility] for further evaluation of abdominal pain. Patient is accompanied by EMS who provide additional history. EMS reports the patient called for severe abdominal pain today. He states that he has not had any improvement. He states it continues to worsen. Patient reports worsening swelling in his left groin. Patient reports normal bowel movements and urination. States he is patient passing flatus. He states that he does have some pain on the left side of his abdomen. He states that the drain continues to have drainage. He states that it feels it is not completely working as his symptoms continue to worsen. They deny fever or chills. No cough or congestion. Denies chest pain or palpitations. No shortness of breath. They deny abdominal pain, nausea and vomiting. No urinary complaints. No recent changes in bowel movements. Patient denies recent changes in medications or OTC supplements. Patient offers no other complaints, today. ADDITIONAL HISTORY OBTAINED: Per HPI Chronic Medical/Social Conditions Affecting Care: Per HPI PAST MEDICAL HISTORY: See Below PAST SURGICAL HISTORY: See Below FAMILY HISTORY: See Below SOCIAL HISTORY: See Below HOME MEDICATIONS: See Below ALLERGIES: See Below VITALS: See Below PHYSICAL EXAMINATION: GENERAL: Sitting up in bed, alert, well appearing, well nourished, no distress, non-toxic EYE EXAM: normal conjunctiva. PERRL and EOM's grossly intact. OROPHARYNX: no exudate, no erythema, lips, buccal mucosa, and tongue normal and mucous membranes are moist NECK: supple, no nuchal rigidity, no adenopathy, non-tender LUNGS: Clear to auscultation. Normal chest wall mechanics HEART: no murmurs, regular rate, regular rhythm ABDOMEN: abdomen soft, tenderness to palpation in the left lower quadrant. IR drain in place with clean, dry and intact dressing. Purulent fluid within the collection system. Patient does have significant swelling within the left groin that is severely tender to touch. no masses, no rebound or guarding. BACK: Back is symmetrical on inspection and there is no deformity, no midline tenderness, no CVA tenderness. SKIN: no rashes and no bruising UPPER EXTREMITIES: upper extremities are grossly normal. LOWER EXTREMITIES: No pitting edema. NEURO EXAM: Normal sensorium, GCS 15, normal speech, no gross weakness of arms, no weakness of legs. MEDICAL DECISION MAKING: Differential diagnoses includes but not limited to Appendicitis, bowel obstruction, diverticulitis, malignancy, nephrolithiasis, gastroenteritis, ACS, PNA, pancreatitis, biliary disease, UTI, STI, testicular torsion, esophageal reflux, gastritis, IBD In summary, this is a 64 year old male who presented with abdominal pain. Differential as above. Nursing notes and pertinent past medical records reviewed. Vital signs reviewed and the patient is tachycardic but otherwise afebrile and HDS. History and presentation revealed recent diagnosis of complicated diverticulitis without improvement. I reviewed prior documentation from emergency department visit on 11/15. Patient was diagnosed with complicated diverticulitis with abscess formation. Patient was ultimately transferred to [facility] for IR intervention given abscess. Patient has had the IR drain in place but he continues to have severe pain and swelling within the groin. He states this is worsened. Unclear if the patient is on antibiotics. Physical examination revealed IR drain in place that appears to be functioning but there is significant swelling in the left groin. This could represent abscess or possible incarcerated hernia. As a result of my initial evaluation, we will plan to repeat CAT scan as well as basic lab work. Diagnostics interpreted by me include EKG and cardiac monitoring as listed below: -Cardiac Monitoring: An order was placed for continuous cardiac monitoring. The monitor shows a rate of 90-120s with regular rhythm. -ECG: EKG independently interpreted by me reveals a poor baseline. It appears to be sinus tachycardia at a rate of [address] segment changes to suggest STEMI. Intervals are otherwise within normal limits. Patient completed laboratory studies and imaging. Results independently interpreted by me are mild leukocytosis, anemia and thrombocytosis. These are all comparable to prior. VBG shows evidence of hyperventilation likely related to pain. Lactate is normal. The patient does meet SIRS criteria with a leukocytosis as well as tachycardia but do not feel the patient is septic at this time. Patient's labs are largely unremarkable and show stability/improvement. Patient has had multiple episodes of severe pain in the emergency department but on multiple reevaluations he is comfortably sleeping. Patient was given IV opiates for his pain. Patient was started on IV Zosyn given his complaints. The patient had a CT that was independently interpreted by me as IR drain in place with abscess still present secondary to complicated diverticulitis. He does appear to have an abscess that extends into the left groin. This is inferior to the inguinal ligament. It is unclear if the IR drain is actually functioning for this portion of the abscess. The patient would benefit from evaluation by interventional radiology regarding possible further drainage. The patient is not peritonitic, septic or severely ill at this time. Do not feel that he needs urgent evaluation by general surgery or interventional radiology. Ultimately, the decision was made to admit the patient for worsening of complicated diverticulitis and severe pain. I discussed the case with the hospitalist service via telephone/TigerText and they are agreeable to admit the patient to their services by Dr. Urbina. Based on the above, including the patient's age, coexisting illnesses, labs, imaging, and exam findings the decision to treat as an inpatient. I discussed the patient with the hospitalist team who recommended admission to their services. They received the medications, treatments, interventions indicated above and their condition remained guarded. I discussed my findings with the patient and their family and they understand and agree with the treatment plan. All patient / family questions were answered to their satisfaction. Consults/Care Managements Discussions: Per [facility] ER treatment provided: See above Procedures: none Critical Care: None The chart was completed utilizing [employer] Speech voice recognition software. Grammatical errors, random word insertions, pronoun errors, and incomplete sentences are an occasional consequence of this system due to software limitations, ambient noise, and hardware issues. Any formal questions or concerns about the content, text, or information contained within the body of this dictation should be directly addressed to the physician for clarification. 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 Severe protein-calorie malnutrition Tobacco dependence Wheezing Osteoarthritis of left hip Osteoarthritis of left knee Status post right knee replacement (~06/2024) Diabetes mellitus, type 2 Tinnitus, bilateral Benign essential hypertension Atherogenic dyslipidemia Osteoarthritis of right knee Chronic recurrent sinusitis Coronary artery disease Medical History Acute metabolic encephalopathy Diverticulitis of intestine with perforation and abscess Uncontrolled diabetes mellitus with ketoacidosis without coma Pseudohyponatremia Sacral fracture DKA (diabetic ketoacidosis) GERD (gastroesophageal reflux disease) controlled, stable per pt Chronic recurrent sinusitis per hx, nothing recent Hx of fracture (12/2023) sacral, due to fall Hx of fall (12/2023) broke tailbone- no surgery/ given baclofen Osteoarthritis of knee Tinnitus, bilateral Diabetes mellitus, type 2 NIDDM Coronary artery disease no stents; last cath 2024 - 40-50% LAD, 50% L circ, RCA without disease; [facility] Cardiology - Dr Rodriguez Dyslipidemia Asthma allergy induced - prn inhaler Hypertension controlled, stable per pt Surgical History History of cardiac catheterization (12/2023) [facility] -- no stents- told 2 minor blockages and treating with meds- follows with te (05/13) S/p bilateral myringotomy with tube placement as a child, multiple times History of back surgery (2007) 2008, Lumbar - laser - herniated disc Family History Father Myocardial infarction Quadruple bypass Brother Myocardial infarction Lung cancer Mother Diabetes PAD (peripheral artery disease) Denies family history of Ovarian cancer Prostate cancer Breast cancer Colorectal cancer Social History Smoking Status: Current every day smoker Tobacco Type: Cigarettes Age Started Using Tobacco: 13; packs per day: 1; Cigarettes Per Day: 5-6 cigs per day (Advised); Second Hand Exposure: No; Do You Dip or Chew Tobacco: No; Hx Alcohol Use: Yes Alcohol type: hard liquor Alcohol Intake Frequency: 2-3 x/Week Hx Substance Use: Yes Last Used Substance: Unknown Last Used Substance Other:: "I haven't used it in awhile" Preferred Language: Greek Communication Ability: Effective Visual Impairment: No Limitations Hearing Ability: Normal Hunter Required: No Beliefs That Will Affect Care: Druze Druze Beliefs: church marital status: Current Living Situation: Alone Current Living Situation Comment: "[facility]" 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 Direct sunlight is very irrita) Assistive Devices: Cane Allergies Allergies Allergy/AdvReac Type Severity Reaction Status Date / Time cyclobenzaprine AdvReac Severe Nightmares Verified 11/23/24 20:51 [From Flexeril] Home Meds Home Medications Medication Instructions Recorded Confirmed atorvastatin 10 mg tablet 10 mg PO QPM 08/23/24 11/23/24 ciprofloxacin HCl 500 mg tablet 500 mg PO BID 11/23/24 11/23/24 insulin glargine 100 unit/mL 30 unit SC QAM 11/23/24 11/23/24 subcutaneous solution (Lantus U-100 Insulin) metronidazole 500 mg tablet 500 mg PO TID 11/23/24 11/23/24 Previous Rx's Medication Instructions Recorded Wheeled Walker #1 ea 05/06/24 aspirin 81 mg tablet,delayed 81 mg PO BID 42 days #0 tabs 07/04/24 release insulin syringe,safety needle 0.5 #100 ea 08/29/24 mL 29 gauge x 1/2" (BD SafetyGlide Insulin Syringe) needle (disp) 30 gauge 30 gauge x #100 ea 08/29/24 1" blood sugar diagnostic (OneTouch #100 ea 09/02/24 Ultra Test strips) blood-glucose meter (OneTouch #1 ea 09/02/24 Ultra2 Meter) lancets 30 gauge (OneTouch #100 ea 09/02/24 UltraSoft 2 Lancet) blood-glucose sensor (FreeStyle #1 ea 09/03/24 Sebastián 3 Plus Sensor device) blood-glucose,electrical tester battery,cont #1 ea 09/03/24 (FreeStyle Sebastián 3 [place]) baclofen 10 mg tablet 10 mg PO TID PRN muscle spasm #90 10/15/24 tabs insulin lispro 100 unit/mL 4 unit (0.04 mL) subcut ACHS #15 mL 10/15/24 subcutaneous solution oxycodone 5 mg tablet 5 mg PO Q6H PRN pain #120 tabs 10/15/24 metformin 1,000 mg tablet 1,000 mg PO BID #180 tabs 10/17/24 Results & Data (ED) Vital Signs Vital Signs - 24 hr 11/23/24 18:35 11/23/24 18:39 11/23/24 19:02 Temperature 36.7 C Temperature Source Oral Pulse Rate 107 H 107 H Pulse Rate [Left Apical] 93 H Respiratory Rate 24 16 Respiratory Effort / Characteristics Spontaneous Labored Non-Labored Spontaneous Respiratory Depth Normal Normal Respiratory Pattern Regular Regular Blood Pressure Blood Pressure [Right Radial Artery] 160/113 H Blood Pressure Mean Blood Pressure Mean [Right Radial Artery] 128 Pulse Oximetry 100 99 Oxygen Delivery Method Room Air Room Air Sepsis Recent Fever Within 48 Hours No Sepsis New/Unexplained Change in Mental Status No Sepsis Action Taken by Nursing No Action Required 11/23/24 20:00 11/23/24 20:48 11/23/24 21:03 Temperature Temperature Source Pulse Rate 85 75 Pulse Rate [Left Apical] 77 Respiratory Rate 26 H 18 22 Respiratory Effort / Characteristics Non-Labored Spontaneous Respiratory Depth Normal Respiratory Pattern Regular Blood Pressure 140/89 139/87 Blood Pressure [Right Radial Artery] 160/97 H Blood Pressure Mean 107 104 Blood Pressure Mean [Right Radial Artery] 118 Pulse Oximetry 99 96 Oxygen Delivery Method Room Air Room Air Sepsis Recent Fever Within 48 Hours Sepsis New/Unexplained Change in Mental Status Sepsis Action Taken by Nursing 11/23/24 21:30 11/23/24 22:00 11/23/24 22:29 Temperature Temperature Source Pulse Rate 87 88 Pulse Rate [Left Apical] 96 H Respiratory Rate 21 24 27 H Respiratory Effort / Characteristics Spontaneous Labored Respiratory Depth Normal Respiratory Pattern Regular Blood Pressure 149/83 H 158/98 H Blood Pressure [Right Radial Artery] 162/67 H Blood Pressure Mean 105 118 Blood Pressure Mean [Right Radial Artery] 98 Pulse Oximetry 94 Oxygen Delivery Method Room Air Sepsis Recent Fever Within 48 Hours Sepsis New/Unexplained Change in Mental Status Sepsis Action Taken by Nursing 11/23/24 22:37 11/23/24 23:33 Temperature 37.1 C Temperature Source Pulse Rate 93 H 117 H Pulse Rate [Left Apical] Respiratory Rate 20 Respiratory Effort / Characteristics Respiratory Depth Respiratory Pattern Blood Pressure 152/105 H Blood Pressure [Right Radial Artery] Blood Pressure Mean 120 Blood Pressure Mean [Right Radial Artery] Pulse Oximetry 95 Oxygen Delivery Method Sepsis Recent Fever Within 48 Hours Sepsis New/Unexplained Change in Mental Status Sepsis Action Taken by Nursing Laboratory Data 11/23/24 18:44 11/23/24 18:44 Lab Results 11/23/24 11/23/24 Range/Units 18:44 20:45 WBC 12.95 H (4.8-10.8) K/ul RBC 4.03 L (4.70-6.10) M/uL Hgb 10.9 L (14.0-18.0) g/dl Hct 33.8 L (42.0-52.0) % MCV 83.9 (80.0-100.0) fL MCH 27.0 (25.0-34.0) pg MCHC 32.2 (32.0-36.0) g/dL RDW Std Deviation 39.5 (36.4-46.3) fL RDW Coeff of Marilin 13.1 (11.5-14.5) % Plt Count 501 H (130-400) K/uL MPV 8.7 L (9.4-12.4) fL Immature Gran % (Auto) 1.5 % Neut % (Auto) 75.9 % Lymph % (Auto) 11.3 % Larue % (Auto) 9.3 % Eos % (Auto) 1.5 % Baso % (Auto) 0.5 % Neut # (Auto) 9.84 H (1.40-6.50) K/uL Lymph # (Auto) 1.46 (1.20-3.40) K/uL Larue # (Auto) 1.20 H (0.11-0.59) K/uL Eos # (Auto) 0.19 (0.00-0.50) K/uL Baso # (Auto) 0.06 (0.00-0.20) K/uL Immature Gran # (Auto) 0.20 (0.01-0.20) K/uL VBG pH 7.43 H (7.36-7.41) VBG pCO2 33 L (38-50) mmHg VBG pO2 < 20 mmHg VBG HCO3 22 mmol/L VBG O2 Saturation < 60.0 % VBG Base Excess -1.7 mEq/L Sodium 135 L (136-145) mmol/L Potassium 3.7 (3.5-5.1) mmol/L Chloride 101 (98-107) mmol/L Carbon Dioxide 22 (21-32) mmol/L Anion Gap 12 H (3-11) BUN 9 (6-23) mg/dl Creatinine 0.74 (0.6-1.4) mg/dl Est Cr Clr Drug Dosing 107.1 ml/min eGFR 99.93 BUN/Creatinine Ratio 12.2 (10-20) Glucose 196 H (70-99(Fasting)) mg/dl Lactate 1.2 (0.4-2.0) mmol/L Calcium 8.9 (8.6-10.3) mg/dl Magnesium 1.7 (1.7-2.4) mg/dl Total Bilirubin 0.7 (0.2-1.0) mg/dl Direct Bilirubin 0.1 (0-0.2) mg/dl AST 12 L (13-39) U/L ALT 22 (7-52) U/L Alkaline Phosphatase 63 (34-104) U/L Troponin I High Sens 3.9 (0-20) pg/ml Total Protein 7.3 (6.0-8.3) gm/dl Albumin 3.6 (3.4-5.0) gm/dl Procalcitonin 0.16 (0-0.5) ng/ml Urine Color Yellow Urine Appearance Clear (Clear) Urine pH 5.5 (4.5-7.5) Ur Specific [place] 1.016 (1.000-1.030) Urine Protein Negative (Negative) Urine Glucose (UA) Negative (Negative) Urine Ketones Negative (Negative) Urine Blood Negative (Negative) Urine Nitrite Negative (Negative) Urine Bilirubin Negative (Negative) Urine Urobilinogen Negative (Negative) Ur Leukocyte Esterase Negative (Negative) Urine Comment Administered Medications Lactated Ringer's (Lr) 1,000 mls @ 100 mls/hr IV .Q10H JOSE JUAN Stop: 11/27/24 00:29 Last Admin: 11/24/24 02:05 Dose: 100 mls/hr Documented By: KML Piperacillin Sod/Tazobactam Sod (Zosyn) 4.5 gm in 100 mls @ 25 mls/hr IV NOW ONE; Protocol Stop: 11/24/24 05:44 Last Admin: 11/24/24 02:05 Dose: 25 mls/hr Documented By: ALIDA Discontinued Medications Droperidol (Droperidol 5 Mg/2 Ml Vial) 1.25 mg IV ONE STA Stop: 11/23/24 21:43 Last Admin: 11/23/24 21:48 Dose: 1.25 mg Documented By: LAURIE Fentanyl Citrate (Fentanyl Citrate Pf 100 Mcg/2 Ml Vial) 50 mcg IV NOW ONE Stop: 11/23/24 18:35 Last Admin: 11/23/24 18:49 Dose: 50 mcg Documented By: LAURIE Hydromorphone HCl (Hydromorphone Inj 1 Mg/Ml Syringe) 1 mg IV NOW STA Stop: 11/23/24 20:11 Last Admin: 11/23/24 20:28 Dose: 1 mg Documented By: TRISTON Hydromorphone HCl (Hydromorphone Inj 0.5 Mg/0.5 Ml Syr) 0.5 mg IV NOW STA Stop: 11/24/24 00:25 Last Admin: 11/24/24 00:32 Dose: 0.5 mg Documented By: ALIDA Sodium Chloride (Nss) 1,000 mls @ 999 mls/hr IV .Q1H1M JOSE JUAN Stop: 11/23/24 19:45 Last Infusion: 11/23/24 20:15 Dose: Infused Documented By: Admin: 11/23/24 18:49 Dose: 999 mls/hr Documented By: LAURIE Piperacillin Sod/Tazobactam Sod (Zosyn) 4.5 gm in 100 mls @ 200 mls/hr IV NOW STA Stop: 11/23/24 19:03 Last Infusion: 11/23/24 20:00 Dose: Infused Documented By: Admin: 11/23/24 19:03 Dose: 200 mls/hr Documented By: LAURIE Acetaminophen (Ofirmev) 1,000 mg in 100 mls @ 400 mls/hr IV NOW STA Stop: 11/23/24 18:48 Last Infusion: 11/23/24 19:03 Dose: Infused Documented By: Admin: 11/23/24 18:50 Dose: 400 mls/hr Documented By: [facility] Ioversol (Optiray 320 100ml) 90 ml IV ONCE ONE Stop: 11/23/24 22:17 Last Admin: 11/23/24 22:17 Dose: 90 ml Documented By: JAYDEN Imaging Data Radiologist's Impression: Chest X-Ray 11/23/24 18:34 Chest radiograph, one view History: Chest pain Comparison: 08/23/2024 Findings: Single AP view of the chest performed. No focal consolidation or pleural effusion. No pneumothorax. The cardiomediastinal silhouette is within normal limits. Normal pulmonary vascularity. No evidence for lymphadenopathy. No visualized bony or soft tissue abnormality. Impression: Normal chest radiograph Electronically signed by Vance Gallo 11-23-2024 7:06 PM Abdomen/Pelvis CT 11/23/24 21:52 Exam(s): CT ABDOMEN + PELVIS With Contrast IV Amt: 90 ml optiray 320 EXAM: CT Abdomen and Pelvis With Intravenous Contrast CLINICAL HISTORY: eval for perf, abscess, hernia. TECHNIQUE: Axial computed tomography images of the abdomen and pelvis with intravenous contrast. CTDI is 27.48 mGy and DLP is 1423.46 mGy-cm. Automated exposure control was utilized for the study. A dose lowering technique was utilized adhering to the principles of ALARA. CONTRAST: Patient received 90 ml optiray 320 of IV contrast COMPARISON: No relevant prior studies available. FINDINGS: Lung bases: Unremarkable. No mass. No consolidation. ABDOMEN: Liver: Enlarged 21.7 cm length. No mass. Gallbladder and bile ducts: Unchanged gallstone within the well- distended gallbladder. Distal common bile duct is within normal limits measuring proximally 5.6 mm. Pancreas: Unremarkable. No mass. No ductal dilation. Spleen: Unremarkable. No splenomegaly. Adrenals: Unremarkable. No mass. Kidneys and ureters: Unchanged left renal cyst. No obstructive uropathy. No obstructing renal or ureteral calculi. No hydronephrosis or hydroureter. Stomach and bowel: Small fat containing periumbilical hernia. No obstruction or ileus. Moderate stool throughout the colon. Redemonstrated left and sigmoid colon diverticulosis with proximal to mid sigmoid colon wall thickening and mild surrounding infiltration consistent with diverticulitis, without significant change. Redemonstrated gas containing collection in the left lateral aspect of the mid sigmoid colon now with a percutaneous pigtail drainage catheter within the collection, decreased in size and definition measuring proximally 2.6 x 2.5 cm. Infiltration extends through the inguinal canal. Decreased size of the component of the collection extending to the left lateral wall of the urinary bladder. A related extra pelvic collection extending from the groin in the subcutaneous soft tissues with an air- fluid level and peripheral enhancement 6.5 x 3.7 cm is grossly unchanged in size although increase in infiltration of the subcutaneous fat. PELVIS: Appendix: No findings to suggest acute appendicitis. Bladder: Redemonstrated slight asymmetric likely reactive wall thickening of the left lateral urinary bladder wall related to the medially adjacent diverticulitis. Urinary bladder is otherwise unremarkable. No mass. Reproductive: Unremarkable as visualized. ABDOMEN and PELVIS: Intraperitoneal space: No free air. No free fluid. Bones/joints: No acute fracture. Degenerative changes of the spine. Soft tissues: Unremarkable. Vasculature: Atherosclerotic vascular calcifications. No abdominal aortic aneurysm. Lymph nodes: Unremarkable. No enlarged lymph nodes. IMPRESSION: Redemonstrated left and sigmoid colon diverticulitis without significant change. Decrease in size of an abscess at left lateral aspect of the mid sigmoid colon now with a percutaneous pigtail drainage catheter within the collection. Decreased size of the component of the collection extending to the left lateral wall of the urinary bladder with unchanged wall thickening, likely reactive. A related extra pelvic collection extending from the groin in the subcutaneous soft tissues with an air-fluid level and peripheral enhancement 6.5 x 3.7 cm is grossly unchanged in size although there increased infiltration of the surrounding subcutaneous fat. Otherwise no change. Electronically signed by: Mauri Underwood M.D. 11/23/24 23:19 PM Discharge Plan Visit Data Chief Complaint: Abdominal Pain ED Provider: Eric Onofre Discharge Problem: Abscess of groin, left, Diverticulitis of large intestine with complication, Acute hyperglycemia, Acute respiratory alkalosis Patient Disposition: Admitted As Inpatient Condition: Serious Discharge Instructions Interventions: ED Discharge Assessment Last Done: 11/24/24 01:35
[2024-11-23 19:20] LABS: Alanine Aminotransferase 22.0 U/L (7-52); Alkaline Phosphatase 63.0 U/L (34-104); Anion Gap 12.0 (3-11); Bilirubin,Total 0.7 mg/dl (0.2-1.0); Blood Urea Nitrogen 9.0 mg/dl (6-23); Calcium 8.9 mg/dl (8.6-10.3); Carbon Dioxide 22.0 mmol/L (21-32); Chloride 101.0 mmol/L (98-107); Creatinine Clr Calc Pharmacy 107.1 ml/min; Glucose 196.0 mg/dl (70-99(Fasting)); Magnesium 1.7 mg/dl (1.7-2.4); Potassium 3.7 mmol/L (3.5-5.1); Sodium 135.0 mmol/L (136-145); Total Protein 7.3 gm/dl (6.0-8.3)
[2024-11-23] MEDS: HYDROmorphone INJ 1 MG/ML SYRINGE IV STA (20:28)
[2024-11-23] MEDS: DROPERIDOL 5 MG/2 ML VIAL IV STA (21:48)
[2024-11-23 21:52] LABS: Appearance Urine Clear (Clear); Glucose Urine UA Negative (Negative)
[2024-11-23] MEDS: OPTIRAY 320 100ml IV ONE (22:17)
--- NOTE | 2024-11-23 23:19 | CT Scan Report ---
Exam(s): CT ABDOMEN + PELVIS With Contrast IV Amt: 90 ml optiray 320 EXAM: CT Abdomen and Pelvis With Intravenous Contrast CLINICAL HISTORY: eval for perf, abscess, hernia. TECHNIQUE: Axial computed tomography images of the abdomen and pelvis with intravenous contrast. CTDI is 27.48 mGy and DLP is 1423.46 mGy-cm. Automated exposure control was utilized for the study. A dose lowering technique was utilized adhering to the principles of ALARA. CONTRAST: Patient received 90 ml optiray 320 of IV contrast COMPARISON: No relevant prior studies available. FINDINGS: Lung bases: Unremarkable. No mass. No consolidation. ABDOMEN: Liver: Enlarged 21.7 cm length. No mass. Gallbladder and bile ducts: Unchanged gallstone within the well- distended gallbladder. Distal common bile duct is within normal limits measuring proximally 5.6 mm. Pancreas: Unremarkable. No mass. No ductal dilation. Spleen: Unremarkable. No splenomegaly. Adrenals: Unremarkable. No mass. Kidneys and ureters: Unchanged left renal cyst. No obstructive uropathy. No obstructing renal or ureteral calculi. No hydronephrosis or hydroureter. Stomach and bowel: Small fat containing periumbilical hernia. No obstruction or ileus. Moderate stool throughout the colon. Redemonstrated left and sigmoid colon diverticulosis with proximal to mid sigmoid colon wall thickening and mild surrounding infiltration consistent with diverticulitis, without significant change. Redemonstrated gas containing collection in the left lateral aspect of the mid sigmoid colon now with a percutaneous pigtail drainage catheter within the collection, decreased in size and definition measuring proximally 2.6 x 2.5 cm. Infiltration extends through the inguinal canal. Decreased size of the component of the collection extending to the left lateral wall of the urinary bladder. A related extra pelvic collection extending from the groin in the subcutaneous soft tissues with an air- fluid level and peripheral enhancement 6.5 x 3.7 cm is grossly unchanged in size although increase in infiltration of the subcutaneous fat. PELVIS: Appendix: No findings to suggest acute appendicitis. Bladder: Redemonstrated slight asymmetric likely reactive wall thickening of the left lateral urinary bladder wall related to the medially adjacent diverticulitis. Urinary bladder is otherwise unremarkable. No mass. Reproductive: Unremarkable as visualized. ABDOMEN and PELVIS: Intraperitoneal space: No free air. No free fluid. Bones/joints: No acute fracture. Degenerative changes of the spine. Soft tissues: Unremarkable. Vasculature: Atherosclerotic vascular calcifications. No abdominal aortic aneurysm. Lymph nodes: Unremarkable. No enlarged lymph nodes. IMPRESSION: Redemonstrated left and sigmoid colon diverticulitis without significant change. Decrease in size of an abscess at left lateral aspect of the mid sigmoid colon now with a percutaneous pigtail drainage catheter within the collection. Decreased size of the component of the collection extending to the left lateral wall of the urinary bladder with unchanged wall thickening, likely reactive. A related extra pelvic collection extending from the groin in the subcutaneous soft tissues with an air-fluid level and peripheral enhancement 6.5 x 3.7 cm is grossly unchanged in size although there increased infiltration of the surrounding subcutaneous fat. Otherwise no change. Electronically signed by: Mauri Underwood M.D. 11/23/24 23:19 PM
[2024-11-23 23:38] VITALS: TEMP 98.8
--- NOTE | 2024-11-23 23:56 | History & Physical Report ---
Date of Service November 23, 2024 Assessment & Plan (1) Diverticulitis of intestine with abscess: (2) Anemia: Plan 64-year-old male PMHx T2DM, dyslipidemia, CAD, OA, tobacco dependence, GERD, and severe protein calorie malnutrition present for abdominal pain that worsened an hour [employer]. He was recently admitted to [facility] and discharged approximately 2 to 3 days [employer] for diverticulitis with abdominal drain. Evaluation does reveal leukocytosis without elevated lactate or procal. H/H slightly diminished, and mild hyponatremia. CTAP demonstrating ongoing diverticulitis with slightly increased increased infiltration of surrounding subcu fat. #Complicated diverticulitis, drain in place Recent hospital admission to [facility] with abdominal drain present in LLQ. Presenting for worsening abdominal pain. Appears to have been on metronidazole + ciprofloxacin outpatient. History very limited, pt is not cooperative in history taking. - CBC leukocytosis 12.95, H&H 10.9/33.8; lactate 1.2; procalcitonin 0.16 - CBC am - CTAP L/sigmoid colon diverticulitis, decreased size L lateral abscess w/ catheter present, decreased size L lateral wall urinary bladder collection, extrapelvic collection into the groin w/ increased infiltration of surrounding subcu fat - NPO - IVF LR @ 80 mL/hr - Zofran prn N/V - Acetaminophen prn fever/pain, Dilaudid for severe pain - Zosyn IV - IR + gen surg consulted -- appreciate input + recs #Anemia/Thrombocytosis Unclear if noticing any bleeding. 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 - Glucose 196 at admission; Most recent A1C 08/2024 @ 15.8% - Hold metformin + insulin - SSI with target BSG range 110-140mg/dL, CF 25, carb ratio 10 - Lantus 10U BID - BSG ACHS, q4h while NPO - Adjust regimen as needed #CAD- ASA, atorvastatin - continue atorvastatin, hold ASA #Chronic pain- Baclofen, Oxycodone - held oxycodone at admission, pain control as above Dispo: Admit, med/sx VTE Prophylaxis: SCDs This document was dictated utilizing [employer]. Please excuse any grammatical errors that may be secondary to use of this software. Admission and Anticipated Discharge Date Admission Date: 11/23/2024 History of Present Illness Chief Complaint: Abdominal pain Primary Care Provider: Jhonathan Harmon DO 64-year-old male PMHx T2DM, dyslipidemia, CAD, OA, tobacco dependence, GERD, and severe protein calorie malnutrition present for abdominal pain that worsened an hour [employer]. He was recently admitted to [facility] and discharged approximately 2 to 3 days [employer] for diverticulitis with abdominal drain. History is very limited as patient is unwilling to answer questions. Requested I stop asking him questions and bothering him. He states his pain is located "where it hurts" and does not specify further. States he never felt better after his discharge from [facility]. Tells me to stop asking him questions when I asked about presence of chest pain, SOB, palpitations, N/V/D/C. Pt's pain is "okay" when laying. ED evaluation with CBC leukocytosis 12.9, H&H 10.9/33.8, platelet 501; VBG pH 7.43, pCO2 33; CMP 135, AG 12, glucose 196, AST 12; lactate 1.2; Pro-Les 0.16; UA negative for infection; CXR WNL; CTAP redemonstration L and sigmoid colon diverticulitis, decrease in size of abscess of left lateral aspect mid sigmoid, also of left lateral wall of urinary bladder collection, related extrapelvic collection extending from the groin to the subcu soft tissue has increased infiltration of surrounding subcu fat but overall unchanged size; EKG sinus tachycardia, low voltage QRS at 104 bpm.; Provided with 1L NSS, Zosyn 4.5 g IV, hydromorphone 1 katelyn IV, fentanyl 50 mcg IV, droperidol 1.25 mg IV, and acetaminophen 1 g IV in ED. Please see Dr. Urbina's attestation for adjustments/additions to treatment plan. Allergies Allergy/AdvReac Type Severity Reaction Status Date / Time cyclobenzaprine AdvReac Severe Nightmares Verified 11/23/24 20:51 [From Flexeril] Home Medications Medication Instructions Recorded Confirmed Type Wheeled Walker #1 ea 05/06/24 10/15/24 Rx aspirin 81 mg tablet,delayed 81 mg PO BID 42 days #0 tabs 07/04/24 11/23/24 Rx release atorvastatin 10 mg tablet 10 mg PO QPM 08/23/24 11/23/24 History insulin syringe,safety needle 0.5 #100 ea 08/29/24 10/15/24 Rx mL 29 gauge x 1/2" (BD SafetyGlide Insulin Syringe) needle (disp) 30 gauge 30 gauge x #100 ea 08/29/24 10/15/24 Rx 1" blood sugar diagnostic (OneTouch #100 ea 09/02/24 10/15/24 Rx Ultra Test strips) blood-glucose meter (OneTouch #1 ea 09/02/24 10/15/24 Rx Ultra2 Meter) lancets 30 gauge (OneTouch #100 ea 09/02/24 10/15/24 Rx UltraSoft 2 Lancet) blood-glucose sensor (FreeStyle #1 ea 09/03/24 10/15/24 Rx Sebastián 3 Plus Sensor device) blood-glucose,diving judge,cont #1 ea 09/03/24 10/15/24 Rx (FreeStyle Sebastián 3 [place]) baclofen 10 mg tablet 10 mg PO TID PRN muscle spasm #90 10/15/24 11/23/24 Rx tabs insulin lispro 100 unit/mL 4 unit (0.04 mL) subcut ACHS #15 mL 10/15/24 11/23/24 Rx subcutaneous solution oxycodone 5 mg tablet 5 mg PO Q6H PRN pain #120 tabs 10/15/24 11/23/24 Rx metformin 1,000 mg tablet 1,000 mg PO BID #180 tabs 10/17/24 11/23/24 Rx ciprofloxacin HCl 500 mg tablet 500 mg PO BID 11/23/24 11/23/24 History insulin glargine 100 unit/mL 30 unit SC QAM 11/23/24 11/23/24 History subcutaneous solution (Lantus U-100 Insulin) metronidazole 500 mg tablet 500 mg PO TID 11/23/24 11/23/24 History 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 Severe protein-calorie malnutrition Tobacco dependence Wheezing Osteoarthritis of left hip Osteoarthritis of left knee Status post right knee replacement (~06/2024) Diabetes mellitus, type 2 Tinnitus, bilateral Benign essential hypertension Atherogenic dyslipidemia Osteoarthritis of right knee Chronic recurrent sinusitis Coronary artery disease Medical History Acute metabolic encephalopathy Diverticulitis of intestine with perforation and abscess Uncontrolled diabetes mellitus with ketoacidosis without coma Pseudohyponatremia Sacral fracture DKA (diabetic ketoacidosis) GERD (gastroesophageal reflux disease) controlled, stable per pt Chronic recurrent sinusitis per hx, nothing recent Hx of fracture (12/2023) sacral, due to fall Hx of fall (12/2023) broke tailbone- no surgery/ given baclofen Osteoarthritis of knee Tinnitus, bilateral Diabetes mellitus, type 2 NIDDM Coronary artery disease no stents; last cath 2024 - 40-50% LAD, 50% L circ, RCA without disease[place] [facility] [place] [facility] [place] Dyslipidemia Asthma allergy induced - prn inhaler Hypertension controlled, stable per pt Surgical History History of cardiac catheterization (12/2023) [facility] -- no stents- told 2 minor blockages and treating with meds- follows with te (05/13) S/p bilateral myringotomy with tube placement as a child, multiple times History of back surgery (2007) 2008, Lumbar - laser - herniated disc Family History Father Myocardial infarction Quadruple bypass Brother Myocardial infarction Lung cancer Mother Diabetes PAD (peripheral artery disease) Denies family history of Ovarian cancer Prostate cancer Breast cancer Colorectal cancer Social History Smoking Status: Current every day smoker Tobacco Type: Cigarettes Age Started Using Tobacco: 13; packs per day: 1; Cigarettes Per Day: 5-6 cigs per day (Advised); Second Hand Exposure: No; Do You Dip or Chew Tobacco: No; Hx Alcohol Use: Yes Alcohol type: hard liquor Alcohol Intake Frequency: 2-3 x/Week Hx Substance Use: Yes Last Used Substance: Unknown Last Used Substance Other:: "I haven't used it in awhile" Preferred Language: Tamazight Communication Ability: Effective Visual Impairment: No Limitations Hearing Ability: Normal C.O.D. 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 Direct sunlight is very irrita) Assistive Devices: Cane Review of Systems Review of Systems: All systems reviewed & are unremarkable except as noted in Subjective Physical Exam Physical Exam: General: No acute distress Skin: Warm and dry Head: Normocephalic, atraumatic Eyes: PERRL, conjunctivae clear, sclera non-icteric ENT: External ear and ear canal without swelling; nose atraumatic; good dentition, tongue normal appearance, pharynx normal Neck: Supple, no LAD Cardio: Slightly tachycardic, regular rhythm, no M/G/R, S1 and S2 normal Resp: No respiratory distress, Lungs CTA in all lobes bilaterally, no wheezes, rales, or rhonchi Abdomen: Will not lay flat on back, abdominal exam limited. Soft, symmetric, nontender, slightly distended; No masses or hepatosplenomegaly; Bowel sounds normoactive MSK: No deformities; pulses palpable and equal; no edema. Neuro: Awake, alert; Sensation intact bilaterally; CN grossly intact Psych: Appropriate mood and affect; good judgement and insight. Results & Data Results & Data Vital Signs (Past 12 Hours) Vital Signs Temp Pulse Pulse Resp BP BP Pulse Ox 11/23/24 23:33 37.1 C 117 H 20 152/105 H 95 11/23/24 22:37 93 H 11/23/24 22:29 96 H 27 H 162/67 H 94 11/23/24 22:00 88 24 158/98 H 11/23/24 21:30 87 21 149/83 H 11/23/24 21:03 75 22 139/87 96 11/23/24 20:48 77 18 160/97 H 99 11/23/24 20:00 85 26 H 140/89 11/23/24 19:02 93 H 16 160/113 H 99 11/23/24 18:39 107 H 11/23/24 18:35 36.7 C 107 H 24 100 O2 Del Method 11/23/24 23:33 11/23/24 22:37 11/23/24 22:29 Room Air 11/23/24 22:00 11/23/24 21:30 11/23/24 21:03 Room Air 11/23/24 20:48 Room Air 11/23/24 20:00 11/23/24 19:02 Room Air 11/23/24 18:39 11/23/24 18:35 Room Air Laboratory Results 11/23/24 18:44 Aerobic Blood Culture - Pending Blood Anaerobic Blood Culture - Pending 11/23/24 18:44 Aerobic Blood Culture - Pending Blood Anaerobic Blood Culture - Pending 11/23/24 11/23/24 20:45 18:44 WBC 12.95 H RBC 4.03 L Hgb 10.9 L Hct 33.8 L MCV 83.9 MCH 27.0 MCHC 32.2 RDW Std Deviation 39.5 RDW Coeff of Marilin 13.1 Plt Count 501 H MPV 8.7 L Immature Gran % (Auto) 1.5 Neut % (Auto) 75.9 Lymph % (Auto) 11.3 [place] % (Auto) 9.3 Eos % (Auto) 1.5 Baso % (Auto) 0.5 Neut # (Auto) 9.84 H Lymph # (Auto) 1.46 [place] # (Auto) 1.20 H Eos # (Auto) 0.19 Baso # (Auto) 0.06 Immature Gran # (Auto) 0.20 VBG pH 7.43 H VBG pCO2 33 L VBG pO2 < 20 VBG HCO3 22 VBG O2 Saturation < 60.0 VBG Base Excess -1.7 Sodium 135 L Potassium 3.7 Chloride 101 Carbon Dioxide 22 Anion Gap 12 H BUN 9 Creatinine 0.74 Est Cr Clr Drug Dosing 107.1 eGFR 99.93 BUN/Creatinine Ratio 12.2 Glucose 196 H Lactate 1.2 Calcium 8.9 Magnesium 1.7 Total Bilirubin 0.7 Direct Bilirubin 0.1 AST 12 L ALT 22 Alkaline Phosphatase 63 Troponin I High Sens 3.9 Total Protein 7.3 Albumin 3.6 Procalcitonin 0.16 Urine Color Yellow Urine Appearance Clear Urine pH 5.5 Ur Specific [place] 1.016 Urine Protein Negative Urine Glucose (UA) Negative Urine Ketones Negative Urine Blood Negative Urine Nitrite Negative Urine Bilirubin Negative Urine Urobilinogen Negative Ur Leukocyte Esterase Negative Urine Comment Diagnostic Findings Chest X-Ray 11/23/24 18:34 Chest radiograph, one view History: Chest pain Comparison: 08/23/2024 Findings: Single AP view of the chest performed. No focal consolidation or pleural effusion. No pneumothorax. The cardiomediastinal silhouette is within normal limits. Normal pulmonary vascularity. No evidence for lymphadenopathy. No visualized bony or soft tissue abnormality. Impression: Normal chest radiograph Electronically signed by Vance Gallo 11-23-2024 7:06 PM Abdomen/Pelvis CT 11/23/24 21:52 Exam(s): CT ABDOMEN + PELVIS With Contrast IV Amt: 90 ml optiray 320 EXAM: CT Abdomen and Pelvis With Intravenous Contrast CLINICAL HISTORY: eval for perf, abscess, hernia. TECHNIQUE: Axial computed tomography images of the abdomen and pelvis with intravenous contrast. CTDI is 27.48 mGy and DLP is 1423.46 mGy-cm. Automated exposure control was utilized for the study. A dose lowering technique was utilized adhering to the principles of ALARA. CONTRAST: Patient received 90 ml optiray 320 of IV contrast COMPARISON: No relevant prior studies available. FINDINGS: Lung bases: Unremarkable. No mass. No consolidation. ABDOMEN: Liver: Enlarged 21.7 cm length. No mass. Gallbladder and bile ducts: Unchanged gallstone within the well- distended gallbladder. Distal common bile duct is within normal limits measuring proximally 5.6 mm. Pancreas: Unremarkable. No mass. No ductal dilation. Spleen: Unremarkable. No splenomegaly. Adrenals: Unremarkable. No mass. Kidneys and ureters: Unchanged left renal cyst. No obstructive uropathy. No obstructing renal or ureteral calculi. No hydronephrosis or hydroureter. Stomach and bowel: Small fat containing periumbilical hernia. No obstruction or ileus. Moderate stool throughout the colon. Redemonstrated left and sigmoid colon diverticulosis with proximal to mid sigmoid colon wall thickening and mild surrounding infiltration consistent with diverticulitis, without significant change. Redemonstrated gas containing collection in the left lateral aspect of the mid sigmoid colon now with a percutaneous pigtail drainage catheter within the collection, decreased in size and definition measuring proximally 2.6 x 2.5 cm. Infiltration extends through the inguinal canal. Decreased size of the component of the collection extending to the left lateral wall of the urinary bladder. A related extra pelvic collection extending from the groin in the subcutaneous soft tissues with an air- fluid level and peripheral enhancement 6.5 x 3.7 cm is grossly unchanged in size although increase in infiltration of the subcutaneous fat. PELVIS: Appendix: No findings to suggest acute appendicitis. Bladder: Redemonstrated slight asymmetric likely reactive wall thickening of the left lateral urinary bladder wall related to the medially adjacent diverticulitis. Urinary bladder is otherwise unremarkable. No mass. Reproductive: Unremarkable as visualized. ABDOMEN and PELVIS: Intraperitoneal space: No free air. No free fluid. Bones/joints: No acute fracture. Degenerative changes of the spine. Soft tissues: Unremarkable. Vasculature: Atherosclerotic vascular calcifications. No abdominal aortic aneurysm. Lymph nodes: Unremarkable. No enlarged lymph nodes. IMPRESSION: Redemonstrated left and sigmoid colon diverticulitis without significant change. Decrease in size of an abscess at left lateral aspect of the mid sigmoid colon now with a percutaneous pigtail drainage catheter within the collection. Decreased size of the component of the collection extending to the left lateral wall of the urinary bladder with unchanged wall thickening, likely reactive. A related extra pelvic collection extending from the groin in the subcutaneous soft tissues with an air-fluid level and peripheral enhancement 6.5 x 3.7 cm is grossly unchanged in size although there increased infiltration of the surrounding subcutaneous fat. Otherwise no change. Electronically signed by: Mauri Underwood M.D. 11/23/24 23:19 PM Medications Administered 1L NSS Zosyn 4.5 g IV Morphine 1 mg IV Fentanyl 50 mcg IV Droperidol 1.25 mg IV Acetaminophen 1 g IV ECG Additional Comments: Sinus tachycardia, low voltage QRS 104 bpm, CO 174, QRS 76, QT/QTc 336/441, PRT 80/25/41 Code Status & VTE Plan Code Status Full VTE Prophylaxis Plan VTE Prophylaxis will be ordered: Yes Supervising Physician Co-Signing Physician Notes patient seen examined, chart reviewed, case discussed with ADIS Razo I agree with assessment plan as documented above. In brief, patient with complicated diverticulitis, abscess formation. He has a pigtail drain in place. Still with persistent abscesses. Afebrile, elevated heart rate, blood pressure stable, leukocytosis On exam patient is in significant discomfort with pain in the left lower quadr ant. Pigtail catheter is in place with scant amount of purulent secretions Positive bowel sounds, soft, nondistended, no peritonitis + S1, S2, regular, no murmur/rub/gallops Lungs CTA anteriorly Labs and images reviewed Assessment/plan Continue IV fluids, broad-spectrum antibiotics in the form of Zosyn Interventional radiology consultation and general surgery consultations appreciated in regards to best management of patient's ongoing abscesses Remainder as above PG Care Time/CCT Total # of Minutes Spent Total Time Spent with Patient: Total time spent is greater than 50% in coordination of care (as documented) at patient's floor/unit and/or counseling patient: Coding Level of Care Code 83137 INT INP/OBS CARE MIN Diagnoses Diverticulitis of intestine with abscess K57.20 Diverticulitis bleeding: unspecified bleeding status Diverticulitis site: large intestine Anemia D64.9 (1) Diverticulitis of intestine with abscess Diverticulitis bleeding: unspecified bleeding status Diverticulitis site: large intestine Qualified Code(s): K57.20 - Diverticulitis of large intestine with perforation and abscess without bleeding
[2024-11-24] MEDS ORDERED: ACETAMINOPHEN 1,000 MG/100 ML VIAL IV PRN (00:30)
[2024-11-24] MEDS ORDERED: HYDROmorphone INJ 0.5 MG/0.5 ML SYR IV PRN (00:30)
[2024-11-24] MEDS: HYDROmorphone INJ 0.5 MG/0.5 ML SYR IV STA (00:32)
[2024-11-24] MEDS ORDERED: DEXTROSE 50% 50 ML SYRINGE IV PRN (00:36)
[2024-11-24] MEDS ORDERED: GLUCOSE 40% GEL 15 GM TUBE PO PRN (00:36)
[2024-11-24] MEDS ORDERED: GLUCOSE 10 TAB/TUBE PO PRN (00:36)
[2024-11-24] MEDS ORDERED: GLUCAGON FOR INJ 1 MG VIAL SQ PRN (00:36)
[2024-11-24] MEDS ORDERED: PHARMACY GLYCEMIC MGMT CONSULT PRN (00:36)
[2024-11-24] MEDS ORDERED: CARBOHYDRATES FOR HYPOGLYCEMIA PO PRN (00:36)
[2024-11-24] MEDS ORDERED: ONDANSETRON INJ 2 MG/ML 2 ML VIAL IV PRN (01:35)
[2024-11-24] MEDS ORDERED: BACLOFEN 10 MG TAB PO PRN (01:35)
[2024-11-24] MEDS: PIPERACILLIN/TAZOBACTAM 4.5 GM/100 ML BAG IV ONE (02:05)
[2024-11-24] MEDS: LACTATED RINGER'S 1,000 ML IV SCH (02:05)
[2024-11-24 04:13] LABS: Hematocrit (blood only) 30.9 % (42.0-52.0); Hemoglobin 9.8 g/dl (14.0-18.0); Mean Corpuscular Hemoglobin 26.8 pg (25.0-34.0); Mean Corpuscular Volume 84.7 fL (80.0-100.0); Platelet Count 457 K/uL (130-400); RDW Standard Deviation 40.4 fL (36.4-46.3); Red Blood Count 3.65 M/uL (4.70-6.10); White Blood Count 9.14 K/ul (4.8-10.8)
[2024-11-24] MEDS: HYDROmorphone INJ 0.5 MG/0.5 ML SYR IV PRN (04:23)
[2024-11-24] MEDS: LACTATED RINGER'S 1,000 ML IV ONE (04:26)
[2024-11-24 04:27] LABS: Anion Gap 8.0 (3-11); Blood Urea Nitrogen 7.0 mg/dl (6-23); Calcium 8.1 mg/dl (8.6-10.3); Carbon Dioxide 21.0 mmol/L (21-32); Chloride 106.0 mmol/L (98-107); Creatinine Clr Calc Pharmacy 120.0 ml/min; Glucose 134.0 mg/dl (70-99(Fasting)); Potassium 3.3 mmol/L (3.5-5.1); Sodium 135.0 mmol/L (136-145)
[2024-11-24] MEDS ORDERED: Nursing to Pharmacy Communication SCH ×2 (07:45→22:15)
[2024-11-24] MEDS: INSULIN ASPART PER UNIT CHARGE SC SCH ×3 (08:00→22:42)
[2024-11-24] MEDS: LANTUS PER UNIT CHARGE SQ SCH (08:29)
[2024-11-24] MEDS: PIPERACILLIN/TAZOBACTAM 4.5 GM/100 ML BAG IV SCH (09:51)
--- NOTE | 2024-11-24 11:38 | Surgery Consultation ---
Date of Consultation November 24, 2024 Assessment & Plan (1) Diverticulitis of intestine with abscess: (2) Chronic pain: (3) Diabetes 1.5, managed as type 1: Plan 64 yo male with complicated diverticulitis of sigmoid colon with abscess and extrapelvic fluid collection in left groin. Likely fistulous tract from intra- abdominal component. Recurrent admissions for such with recent IR drain placement at [facility]. No acute surgical intervention. Discussed with IR Ralph Tsai PA-C, plan for CT guided soft tissue IR drain placement in the extrapelvic fluid collection and keep current IR drain in place. Continue IV antibiotics. May need infectious disease input. Continue pain management. Continue medical management. Discussed with Dr. Ochoa who agrees with above. History of Present Illness Reason for Consultation: Diverticulitis with abscess, recurrent Requesting Physician: Brit Razo PA-C Attending Physician: Estelita East MD History of Present Illness Mr. 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 He presented to [facility] due to increasing abdominal/left groin pain. He states the area with be sore and very tender with episodes of severe pain. No drainage. IR drain still draining pus like fluid. No fevers or chills. Able to eat without abdominal pain, nausea, vomiting. No blood in stools or black stools. Some constipation and difficulty moving bowels. Allergies Allergy/AdvReac Type Severity Reaction Status Date / Time cyclobenzaprine AdvReac Severe Nightmares Verified 11/23/24 20:51 [From Flexeril] Home Medications Medication Instructions Recorded Confirmed Type Wheeled Walker #1 ea 05/06/24 10/15/24 Rx aspirin 81 mg tablet,delayed 81 mg PO BID 42 days #0 tabs 07/04/24 11/23/24 Rx release atorvastatin 10 mg tablet 10 mg PO QPM 08/23/24 11/23/24 History insulin syringe,safety needle 0.5 #100 ea 08/29/24 10/15/24 Rx mL 29 gauge x 1/2" (BD SafetyGlide Insulin Syringe) needle (disp) 30 gauge 30 gauge x #100 ea 08/29/24 10/15/24 Rx 1" blood sugar diagnostic (OneTouch #100 ea 09/02/24 10/15/24 Rx Ultra Test strips) blood-glucose meter (OneTouch #1 ea 09/02/24 10/15/24 Rx Ultra2 Meter) lancets 30 gauge (OneTouch #100 ea 09/02/24 10/15/24 Rx UltraSoft 2 Lancet) blood-glucose sensor (FreeStyle #1 ea 09/03/24 10/15/24 Rx Sebastián 3 Plus Sensor device) blood-glucose,stock receiver,cont #1 ea 09/03/24 10/15/24 Rx (FreeStyle Sebastián 3 Nelson) baclofen 10 mg tablet 10 mg PO TID PRN muscle spasm #90 10/15/24 11/23/24 Rx tabs insulin lispro 100 unit/mL 4 unit (0.04 mL) subcut ACHS #15 mL 10/15/24 11/23/24 Rx subcutaneous solution oxycodone 5 mg tablet 5 mg PO Q6H PRN pain #120 tabs 10/15/24 11/23/24 Rx metformin 1,000 mg tablet 1,000 mg PO BID #180 tabs 10/17/24 11/23/24 Rx ciprofloxacin HCl 500 mg tablet 500 mg PO BID 11/23/24 11/23/24 History insulin glargine 100 unit/mL 30 unit SC QAM 11/23/24 11/23/24 History subcutaneous solution (Lantus U-100 Insulin) metronidazole 500 mg tablet 500 mg PO TID 11/23/24 11/23/24 History Patient History Medical History Acute metabolic encephalopathy Diverticulitis of intestine with perforation and abscess Uncontrolled diabetes mellitus with ketoacidosis without coma Pseudohyponatremia Sacral fracture DKA (diabetic ketoacidosis) GERD (gastroesophageal reflux disease) controlled, stable per pt Chronic recurrent sinusitis per hx, nothing recent Hx of fracture (12/2023) sacral, due to fall Hx of fall (12/2023) broke tailbone- no surgery/ given baclofen Osteoarthritis of knee Tinnitus, bilateral Diabetes mellitus, type 2 NIDDM Coronary artery disease no stents; last cath 2024 - 40-50% LAD, 50% L circ, RCA without disease; [facility] Cardiology - Dr Rodriguez Dyslipidemia Asthma allergy induced - prn inhaler Hypertension controlled, stable per pt Surgical History History of cardiac catheterization (12/2023) [facility] -- no stents- told 2 minor blockages and treating with meds- follows with te (05/13) S/p bilateral myringotomy with tube placement as a child, multiple times History of back surgery (2007) 2008, Lumbar - laser - herniated disc Family History Father Myocardial infarction Quadruple bypass Brother Myocardial infarction Lung cancer Mother Diabetes PAD (peripheral artery disease) Denies family history of Ovarian cancer Prostate cancer Breast cancer Colorectal cancer Social History Smoking Status: Current every day smoker Tobacco Type: Cigarettes Age Started Using Tobacco: 13; packs per day: 1; Cigarettes Per Day: 5-6 cigs per day (Advised); Second Hand Exposure: No; Do You Dip or Chew Tobacco: No; Hx Alcohol Use: Yes Alcohol type: hard liquor Alcohol Intake Frequency: 2-3 x/Week Hx Substance Use: Yes Last Used Substance: Unknown Last Used Substance Other:: "I haven't used it in awhile" Preferred Language: Fijian Communication Ability: Effective Visual Impairment: No Limitations Hearing Ability: Normal Pole Tester Required: No Beliefs That Will Affect Care: Hoahaoism Hoahaoism Beliefs: confucianism marital status: Current Living Situation: Alone Current Living Situation Comment: "snf home" 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 Direct sunlight is very irrita) Assistive Devices: Walker Review of Systems Review of Systems: All systems reviewed & are unremarkable except as noted in HPI & below Physical Exam Constitutional: WD/WN, vitals as above no acute distress, not ill appearing and not in distress Respiratory: normal respiratory effort; no respiratory distress Gastrointestinal (Abdomen): Inspection/Auscultation: abdomen normal to inspection and + visible herniation (umbilical hernia); abdomen not distended Percussion/Palpation: + abdomen tender (LLQ ) and abdomen soft; no guarding, abdomen not rigid and abdomen not firm Left groin : there is an area of 6 cm x 7 cm of erythema and induration and fluctuance. No drainage. Skin: no rashes, warm and dry Psychiatric: Orientation: alert and oriented x 3 Results & Data Vital Signs (Past 12 Hours) Vital Signs Temp Pulse Pulse Resp BP BP Pulse Ox 11/24/24 07:24 37.1 C 86 24 155/92 H 95 11/24/24 07:21 37.1 C 86 24 155/92 H 95 11/24/24 07:08 99 H 11/24/24 06:01 87 14 137/66 97 11/24/24 02:53 99 H 16 98/74 L 97 11/24/24 02:14 94 H 11/24/24 02:08 99 H 24 119/71 96 11/24/24 00:33 120 H 16 119/96 97 11/24/24 00:00 118 H 22 126/86 96 O2 Del Method 11/24/24 07:24 Room Air 11/24/24 07:21 Room Air 11/24/24 07:08 11/24/24 06:01 Room Air 11/24/24 02:53 Room Air 11/24/24 02:14 11/24/24 02:08 Room Air 11/24/24 00:33 11/24/24 00:00 Laboratory Results 11/24/24 11/24/24 11/24/24 Range/Units 07:57 03:47 03:19 WBC 9.14 (4.8-10.8) K/ul RBC 3.65 L (4.70-6.10) M/uL Hgb 9.8 L (14.0-18.0) g/dl Hct 30.9 L (42.0-52.0) % MCV 84.7 (80.0-100.0) fL MCH 26.8 (25.0-34.0) pg MCHC 31.7 L (32.0-36.0) g/dL RDW Std Deviation 40.4 (36.4-46.3) fL RDW Coeff of Marilin 13.0 (11.5-14.5) % Plt Count 457 H (130-400) K/uL MPV 8.8 L (9.4-12.4) fL Immature Gran % (Auto) % Neut % (Auto) % Lymph % (Auto) % Payette % (Auto) % Eos % (Auto) % Baso % (Auto) % Neut # (Auto) (1.40-6.50) K/uL Lymph # (Auto) (1.20-3.40) K/uL Payette # (Auto) (0.11-0.59) K/uL Eos # (Auto) (0.00-0.50) K/uL Baso # (Auto) (0.00-0.20) K/uL Immature Gran # (Auto) (0.01-0.20) K/uL VBG pH (7.36-7.41) VBG pCO2 (38-50) mmHg VBG pO2 mmHg VBG HCO3 mmol/L VBG O2 Saturation % VBG Base Excess mEq/L Sodium 135 L (136-145) mmol/L Potassium 3.3 L (3.5-5.1) mmol/L Chloride 106 (98-107) mmol/L Carbon Dioxide 21 (21-32) mmol/L Anion Gap 8 (3-11) BUN 7 (6-23) mg/dl Creatinine 0.66 (0.6-1.4) mg/dl Est Cr Clr Drug Dosing 120.0 ml/min eGFR 103.44 BUN/Creatinine Ratio 10.6 (10-20) Glucose 134 H (70-99(Fasting)) mg/dl POC Glucose 128 H 142 H (70-99) mg/dl Lactate (0.4-2.0) mmol/L Calcium 8.1 L (8.6-10.3) mg/dl Magnesium (1.7-2.4) mg/dl Total Bilirubin (0.2-1.0) mg/dl Direct Bilirubin (0-0.2) mg/dl AST (13-39) U/L ALT (7-52) U/L Alkaline Phosphatase (34-104) U/L Troponin I High Sens (0-20) pg/ml Total Protein (6.0-8.3) gm/dl Albumin (3.4-5.0) gm/dl Procalcitonin (0-0.5) ng/ml Urine Color Urine Appearance (Clear) Urine pH (4.5-7.5) Ur Specific Norco (1.000-1.030) Urine Protein (Negative) Urine Glucose (UA) (Negative) Urine Ketones (Negative) Urine Blood (Negative) Urine Nitrite (Negative) Urine Bilirubin (Negative) Urine Urobilinogen (Negative) Ur Leukocyte Esterase (Negative) Urine Comment 11/23/24 11/23/24 Range/Units 20:45 18:44 WBC 12.95 H (4.8-10.8) K/ul RBC 4.03 L (4.70-6.10) M/uL Hgb 10.9 L (14.0-18.0) g/dl Hct 33.8 L (42.0-52.0) % MCV 83.9 (80.0-100.0) fL MCH 27.0 (25.0-34.0) pg MCHC 32.2 (32.0-36.0) g/dL RDW Std Deviation 39.5 (36.4-46.3) fL RDW Coeff of Marilin 13.1 (11.5-14.5) % Plt Count 501 H (130-400) K/uL MPV 8.7 L (9.4-12.4) fL Immature Gran % (Auto) 1.5 % Neut % (Auto) 75.9 % Lymph % (Auto) 11.3 % Payette % (Auto) 9.3 % Eos % (Auto) 1.5 % Baso % (Auto) 0.5 % Neut # (Auto) 9.84 H (1.40-6.50) K/uL Lymph # (Auto) 1.46 (1.20-3.40) K/uL Payette # (Auto) 1.20 H (0.11-0.59) K/uL Eos # (Auto) 0.19 (0.00-0.50) K/uL Baso # (Auto) 0.06 (0.00-0.20) K/uL Immature Gran # (Auto) 0.20 (0.01-0.20) K/uL VBG pH 7.43 H (7.36-7.41) VBG pCO2 33 L (38-50) mmHg VBG pO2 < 20 mmHg VBG HCO3 22 mmol/L VBG O2 Saturation < 60.0 % VBG Base Excess -1.7 mEq/L Sodium 135 L (136-145) mmol/L Potassium 3.7 (3.5-5.1) mmol/L Chloride 101 (98-107) mmol/L Carbon Dioxide 22 (21-32) mmol/L Anion Gap 12 H (3-11) BUN 9 (6-23) mg/dl Creatinine 0.74 (0.6-1.4) mg/dl Est Cr Clr Drug Dosing 107.1 ml/min eGFR 99.93 BUN/Creatinine Ratio 12.2 (10-20) Glucose 196 H (70-99(Fasting)) mg/dl POC Glucose (70-99) mg/dl Lactate 1.2 (0.4-2.0) mmol/L Calcium 8.9 (8.6-10.3) mg/dl Magnesium 1.7 (1.7-2.4) mg/dl Total Bilirubin 0.7 (0.2-1.0) mg/dl Direct Bilirubin 0.1 (0-0.2) mg/dl AST 12 L (13-39) U/L ALT 22 (7-52) U/L Alkaline Phosphatase 63 (34-104) U/L Troponin I High Sens 3.9 (0-20) pg/ml Total Protein 7.3 (6.0-8.3) gm/dl Albumin 3.6 (3.4-5.0) gm/dl Procalcitonin 0.16 (0-0.5) ng/ml Urine Color Yellow Urine Appearance Clear (Clear) Urine pH 5.5 (4.5-7.5) Ur Specific Norco 1.016 (1.000-1.030) Urine Protein Negative (Negative) Urine Glucose (UA) Negative (Negative) Urine Ketones Negative (Negative) Urine Blood Negative (Negative) Urine Nitrite Negative (Negative) Urine Bilirubin Negative (Negative) Urine Urobilinogen Negative (Negative) Ur Leukocyte Esterase Negative (Negative) Urine Comment Diagnostic Findings Exam(s): CT ABDOMEN + PELVIS With Contrast IV Amt: 90 ml optiray 320 EXAM: CT Abdomen and Pelvis With Intravenous Contrast CLINICAL HISTORY: eval for perf, abscess, hernia. TECHNIQUE: Axial computed tomography images of the abdomen and pelvis with intravenous contrast. CTDI is 27.48 mGy and DLP is 1423.46 mGy-cm. Automated exposure control was utilized for the study. A dose lowering technique was utilized adhering to the principles of ALARA. CONTRAST: Patient received 90 ml optiray 320 of IV contrast COMPARISON: No relevant prior studies available. FINDINGS: Lung bases: Unremarkable. No mass. No consolidation. ABDOMEN: Liver: Enlarged 21.7 cm length. No mass. Gallbladder and bile ducts: Unchanged gallstone within the well- distended gallbladder. Distal common bile duct is within normal limits measuring proximally 5.6 mm. Pancreas: Unremarkable. No mass. No ductal dilation. Spleen: Unremarkable. No splenomegaly. Adrenals: Unremarkable. No mass. Kidneys and ureters: Unchanged left renal cyst. No obstructive uropathy. No obstructing renal or ureteral calculi. No hydronephrosis or hydroureter. Stomach and bowel: Small fat containing periumbilical hernia. No obstruction or ileus. Moderate stool throughout the colon. Redemonstrated left and sigmoid colon diverticulosis with proximal to mid sigmoid colon wall thickening and mild surrounding infiltration consistent with diverticulitis, without significant change. Redemonstrated gas containing collection in the left lateral aspect of the mid sigmoid colon now with a percutaneous pigtail drainage catheter within the collection, decreased in size and definition measuring proximally 2.6 x 2.5 cm. Infiltration extends through the inguinal canal. Decreased size of the component of the collection extending to the left lateral wall of the urinary bladder. A related extra pelvic collection extending from the groin in the subcutaneous soft tissues with an air- fluid level and peripheral enhancement 6.5 x 3.7 cm is grossly unchanged in size although increase in infiltration of the subcutaneous fat. PELVIS: Appendix: No findings to suggest acute appendicitis. Bladder: Redemonstrated slight asymmetric likely reactive wall thickening of the left lateral urinary bladder wall related to the medially adjacent diverticulitis. Urinary bladder is otherwise unremarkable. No mass. Reproductive: Unremarkable as visualized. ABDOMEN and PELVIS: Intraperitoneal space: No free air. No free fluid. Bones/joints: No acute fracture. Degenerative changes of the spine. Soft tissues: Unremarkable. Vasculature: Atherosclerotic vascular calcifications. No abdominal aortic aneurysm. Lymph nodes: Unremarkable. No enlarged lymph nodes. IMPRESSION: Redemonstrated left and sigmoid colon diverticulitis without significant change. Decrease in size of an abscess at left lateral aspect of the mid sigmoid colon now with a percutaneous pigtail drainage catheter within the collection. Decreased size of the component of the collection extending to the left lateral wall of the urinary bladder with unchanged wall thickening, likely reactive. A related extra pelvic collection extending from the groin in the subcutaneous soft tissues with an air-fluid level and peripheral enhancement 6.5 x 3.7 cm is grossly unchanged in size although there increased infiltration of the surrounding subcutaneous fat. Otherwise no change. Personally reviewed CT scan images and concur with above findings. Likely fistulous tract from intra-abdominal component. (1) Diverticulitis of intestine with abscess Diverticulitis bleeding: unspecified bleeding status Diverticulitis site: large intestine Qualified Code(s): K57.20 - Diverticulitis of large intestine with perforation and abscess without bleeding
--- NOTE | 2024-11-24 12:09 | Pharmacy Report ---
Pharmacy Glycemic Short Note 2 - Date of Service November 24, 2024 - Glycemic Short BSG Results (Last 24 hours): 11/23/24 11/24/24 11/24/24 18:44 03:19 03:47 Glucose 196 H 134 H POC Glucose 142 H 11/24/24 11/24/24 07:57 11:49 Glucose POC Glucose 128 H 105 H OUTPATIENT ANTIDIABETIC REGIMEN: * Lantus 30 units SQ qAM * Novolog 4 units SQ ACHS * metformin 1gm PO BID HbA1C: 15.8% (09/04/24) ASSESSMENT: * Pt is a 64 YOM admitted with diverticulitis with abscess. History of DM 1.5 on insulin and metformin @ home. Pharmacy consulted to assist with inpatient glycemic management. * BSGs [phone]/dL since admission. Receiving IV antibiotics and NPO for IR drain placement. * Lantus 10 units SQ X 1 this AM. Will reassess basal in AM given NPO and BSGs down-trending. Novolog mild-moderate stress scale q6 while NPO. PLAN FOR INPATIENT GLYCEMIC CONTROL: * Hold outpatient oral diabetes medications * Basal insulin * Lantus 10 units SQ X 1 this AM * Bolus insulin * NovoLog per scale ACHS or Q6hrs while NPO * Goal Range: Low 110 mg/dL - High 140 mg/dL * Correction Factor: 30 mg/dL/unit * Nutritional / Prandial insulin per carb ratio of 1 unit per 10 grams CHO consumed
--- NOTE | 2024-11-24 12:36 | Electrocardiogram Report ---
Test Reason : Blood Pressure : */* mmHG Vent. Rate : 104 BPM Atrial Rate : 104 BPM P-R Int : 174 ms QRS Dur : 76 ms QT Int : 336 ms P-R-T Axes : 80 25 41 degrees QTcB Int : 441 ms Sinus tachycardia Low voltage QRS Borderline ECG When compared with ECG of 15-Nov-2024 23:09, No significant change was found Confirmed by Meliton Hedrick ([id number]) on 11/24/2024 12:36:25 PM Referred By: REFERRED SELF Confirmed By: Meliton Hedrick
--- NOTE | 2024-11-24 15:24 | CT Scan Report ---
CT-guided left lower quadrant subcutaneous abscess drain placement INDICATION: Diverticular abscess with prior drain placement at an outside institution; new left lower quadrant subcutaneous complex fluid collection PROCEDURE: Procedure and risks were explained. Informed consent was obtained. A final timeout was com pleted. The left lower quadrant was prepped and draped in sterile fashion. 1% lidocaine was utilized for skin anesthesia. The patient received 100 mcg fentanyl IV for pain during the procedure. Utilizing CT guidance, an 18-gauge Chiba needle was advanced into the complex left lower quadrant sub cutaneous fluid collection. A 0.035 Amplatz wire was introduced through the entry needle and exchange d for an 8 Chinese locking pigtail catheter. Approximately 30 mL of purulent fluid was removed with a portion sent to the lab for analysis. The catheter was sutured to the skin with 2-[address] d to suction bag drainage. The patient tolerated the procedure well. Post CT demonstrated adequate ca theter position without immediate complications. IMPRESSION: Left lower quadrant subcutaneous abscess strain placement as above. Performed, dictated, and signed by Praveen Tsai PA-C; to be co-signed by Dr. Henrique Esposito. Electronically signed by: Henrique Esposito M.D. 11/24/2024 4:04 PM
--- NOTE | 2024-11-24 17:33 | Hospitalist Progress Note ---
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 CTAP demonstrating ongoing diverticulitis with slightly increased increased infiltration of surrounding subcu fat. #Complicated diverticulitis with diverticular abscess #Sepsis POA - resolved Recent hospital admission to [facility] with LLQ IR drain placement for diverticular abscess. Presenting for worsening abdominal pain. Appears to have been on metronidazole + ciprofloxacin outpatient. Specific location of pain and swelling is L groin medial to the existing IR drain. Reviewed CT images - this corresponds to the extrapelvic fluid collection that is suspicious for abscess. Consulted general surgery and discussed with them - appears like abscess with fistulous tract to area of diverticulitis. IR placed drain 11/24 and aspirated 30 mL of pus, submitted for culture and gram stain. Continue pip-tazo awaiting cultures. Agree consider ID consult since IV abx may need to be prolonged but will wait for more info from abscess culture. - leukocytosis resolved on CBC - IVF LR @ 80 mL/hr - continue - replace mild hypokalemia of 3.3 with 40 meq po - threatened to leave AMA this afternoon because of NPO. Liberated to clears. - Zofran prn N/V - Acetaminophen prn fever/pain, Dilaudid for severe pain - continue pip-tazo - follow up culture from abscess drainage, 11/23 admission blood cultures #Anemia and reactive thrombocytosis - Hg with expected dilutional drop from 10.9-->9.8 overnight - Iron panel pending, ferritin pending - Vitamin B12 + folate pending #DMT1.5 H/o DMT1.5 A1c 15.8 in August, at home regimen includes Lantus 30U am, lispro, and metformin. Was in DKA when he presented with diverticulitis initially - continue glargine and premeal/correctional aspart - pharmacist glycemic consult managing - BG at goal today #CAD- last angiogram 11/[address] Rodriguez - nonobstructive CAD not needing PCI - continue atorvastatin, resume ASA #Chronic pain- Baclofen, Oxycodone - held oxycodone at admission, pain control as above DVT ppx - enoxaparin Admission and Anticipated Discharge Date Admission Date: November 23, 2024 Subjective IR drain for diverticular [facility] Since then, pain and swelling in L groin "blew up" Physical Exam 2 Physical Exam: Last 24h vitals reviewed GEN: curled on side in bed looks uncomfortable when moving around HEENT: pupils equal, sclerae anicteric, moist MM RESP: normal WOB, CTAB CV: reg no mrg ABD: soft/ND, protruberant, umbilical hernia soft, LLQ IR drain in place sutured. L groin area medial to existing drain swollen and very tender, no erythema : no garcia SKIN: warm and dry, no generalized rashes NEURO: AOx person, place, and situation. Face symmetric, speech normal, moves 4 ext spontaneously and equally Results & Data Results & Data Vital Signs (Past 12 Hours) Vital Signs Temp Pulse Pulse Resp BP BP Pulse Ox 11/24/24 15:21 84 30 H 158/73 H 94 11/24/24 15:18 84 26 H 158/58 H 93 11/24/24 15:07 153/58 H 11/24/24 13:39 83 27 H 92 11/24/24 13:30 84 30 H 92 11/24/24 13:21 80 30 H 92 11/24/24 13:00 83 26 H 93 11/24/24 12:39 88 31 H 93 11/24/24 12:03 94 H 28 H 11/24/24 11:51 89 16 95 11/24/24 11:48 91 H 15 95 11/24/24 11:21 77 25 H 94 11/24/24 11:12 83 23 95 11/24/24 11:06 86 20 95 11/24/24 10:57 90 25 H 97 11/24/24 10:18 80 21 95 11/24/24 10:03 82 23 96 11/24/24 09:54 85 31 H 99 11/24/24 09:33 76 28 H 97 11/24/24 09:15 72 28 H 96 11/24/24 09:00 77 8 L 95 11/24/24 08:42 78 18 96 11/24/24 08:36 85 23 96 11/24/24 08:12 81 24 94 11/24/24 08:00 84 5 L 95 11/24/24 07:45 87 29 H 95 11/24/24 07:36 83 31 H 94 11/24/24 07:24 37.1 C 86 24 155/92 H 95 11/24/24 07:21 37.1 C 86 24 155/92 H 95 11/24/24 07:16 155/92 H 11/24/24 07:16 155/92 H 11/24/24 07:15 100 H 29 H 98 11/24/24 07:08 99 H 11/24/24 06:51 89 17 95 11/24/24 06:30 89 21 96 11/24/24 06:21 89 31 H 97 11/24/24 06:12 89 34 H 97 11/24/24 06:03 137/66 11/24/24 06:03 137/66 11/24/24 06:01 87 14 137/66 97 11/24/24 05:42 83 30 H 96 11/24/24 05:30 100 H 19 99 11/24/24 05:21 88 25 H 100 O2 Del Method 11/24/24 15:21 11/24/24 15:18 11/24/24 15:07 11/24/24 13:39 11/24/24 13:30 11/24/24 13:21 11/24/24 13:00 11/24/24 12:39 11/24/24 12:03 11/24/24 11:51 11/24/24 11:48 11/24/24 11:21 11/24/24 11:12 11/24/24 11:06 11/24/24 10:57 11/24/24 10:18 11/24/24 10:03 11/24/24 09:54 11/24/24 09:33 11/24/24 09:15 11/24/24 09:00 11/24/24 08:42 11/24/24 08:36 11/24/24 08:12 11/24/24 08:00 11/24/24 07:45 11/24/24 07:36 11/24/24 07:24 Room Air 09/08/25 07:21 Room Air 11/24/24 07:16 11/24/24 07:16 11/24/24 07:15 11/24/24 07:08 11/24/24 06:51 11/24/24 06:30 11/24/24 06:21 11/24/24 06:12 11/24/24 06:03 11/24/24 06:03 11/24/24 06:01 Room Air 11/24/24 05:42 11/24/24 05:30 11/24/24 05:21 Laboratory Results 11/24/24 03:47 11/24/24 03:47 PG Care Time/CCT Total # of Minutes Spent Total Time Spent with Patient: Total time spent is greater than 50% in coordination of care (as documented) at patient's floor/unit and/or counseling patient: Coding Level of Care Code 21139 SUB INP/OBS CARE 350MIN Diagnoses Diverticulitis of intestine with abscess K57.20 Diverticulitis bleeding: unspecified bleeding status Diverticulitis site: large intestine Anemia D64.9 Diabetes 1.5, managed as type 1 E13.9 Coronary artery disease I25.10 (1) Diverticulitis of intestine with abscess Diverticulitis bleeding: unspecified bleeding status Diverticulitis site: l arge intestine Qualified Code(s): K57.20 - Diverticulitis of large intestine with perforation and abscess without bleeding
[2024-11-24 18:27] VITALS: O2SAT 95
[2024-11-24 18:31] VITALS: BP 132/84; PULSE 73; RESP 20
--- NOTE | 2024-11-24 18:42 | Discharge Summary ---
Discharge Summary Date of Service November 24, 2024 Principal Dx & Hospital Course #1 = Principal Diagnosis (1) Diverticulitis of intestine with abscess: (2) Anemia: (3) Diabetes 1.5, managed as type 1: (4) Coronary artery disease: Plan 64-year-old male PMHx T2DM, dyslipidemia, CAD, OA, tobacco dependence, GERD, and severe protein calorie malnutrition present for abdominal pain that worsened an hour ENGROSSER. He was recently admitted to [facility] and discharged approximately 2 to 3 days ENGROSSER for diverticulitis with abdominal drain. CTAP demonstrating ongoing diverticulitis with slightly increased increased infiltration of surrounding subcu fat. #Complicated diverticulitis with diverticular abscess, fistulous tract to extrapelvic L groin abscess #Sepsis POA - resolved Recent hospital admission to [facility] with LLQ IR drain placement for diverticular abscess. Presenting for worsening abdominal pain 2-3 days after discharge. Was on metronidazole + ciprofloxacin outpatient. Specific location of pain and swelling is L groin medial to the existing IR drain. Reviewed CT images - this corresponds to the extrapelvic fluid collection that is suspicious for abscess. Consulted general surgery and discussed with them - appears like abscess with fistulous tract to area of diverticulitis. IR placed drain 11/24 and aspirated 30 mL of pus, submitted for culture and gram stain --> GPCs and pinpoint growth on culture. on pip-tazo in hospital. - leukocytosis resolved on CBC - replaced mild hypokalemia of 3.3 with 40 meq po - L groin pain much improved with drain, cont PRN APAP and oxycodone Was planning on leaving AMA last night and this AM. Stayed until midmorning after surgeon and I both saw him. This was an irregular discharge because he refused to stay and I would not have discharged him today otherwise, however, he is not currently unstable. -continue po cipro and flagyl which he has -follow up culture from groin abscess -home health set up for wound/drain care -FU with PCP and with surgery within 2 weeks with repeat abdominal CT - HILARIO ly contacting Dr. Ochoa's office to arrange #Anemia and reactive thrombocytosis - Hg with expected dilutional drop from 10.9-->9.8 overnight - further evaluation deferred to outpatient setting #DMT1.5 H/o DMT1.5 A1c 15.8 in August, at home regimen includes Lantus 30U am, lispro, and metformin. Was in DKA when he presented with diverticulitis initially -resume usual regimen #CAD- last angiogram 11/[address] Rodriguez - nonobstructive CAD not needing PCI - continue atorvastatin, ASA #Chronic pain- Baclofen, Oxycodone Notes For Next Care Provider Diverticulitis with complications Has LLQ drain in diverticular abscess placed at [facility] Drain placed in L droin abscess 11/24 at [facility] Repeat CT abdomen/pelvis in 2 weeks with follow up in general surgery Irregular discharge Abscess culture pending Medication Changes From Visit No Admission HPI Per Admitting Provider 64-year-old male PMHx T2DM, dyslipidemia, CAD, OA, tobacco dependence, GERD, and severe protein calorie malnutrition present for abdominal pain that worsened an hour ENGROSSER. He was recently admitted to [facility] and discharged approximately 2 to 3 days ENGROSSER for diverticulitis with abdominal drain. History is very limited as patient is unwilling to answer questions. Requested I stop asking him questions and bothering him. He states his pain is located "where it hurts" and does not specify further. States he never felt better after his discharge from [facility]. Tells me to stop asking him questions when I asked about presence of chest pain, SOB, palpitations, N/V/D/C. Pt's pain is "okay" when laying. ED evaluation with CBC leukocytosis 12.9, H&H 10.9/33.8, platelet 501; VBG pH 7.43, pCO2 33; CMP 135, AG 12, glucose 196, AST 12; lactate 1.2; Pro-Les 0.16; UA negative for infection; CXR WNL; CTAP redemonstration L and sigmoid colon diverticulitis, decrease in size of abscess of left lateral aspect mid sigmoid, also of left lateral wall of urinary bladder collection, related extrapelvic collection extending from the groin to the subcu soft tissue has increased infiltration of surrounding subcu fat but overall unchanged size; EKG sinus tachycardia, low voltage QRS at 104 bpm.; Provided with 1L NSS, Zosyn 4.5 g IV, hydromorphone 1 katelyn IV, fentanyl 50 mcg IV, droperidol 1.25 mg IV, and acetaminophen 1 g IV in ED. Please see Dr. Urbina's attestation for adjustments/additions to treatment plan. Discharge Exam Last 24h vitals reviewed GEN: sitting up on EOB looks much more comfortable. Irascible mood HEENT: pupils equal, sclerae anicteric, moist MM RESP: normal WOB CV: ABD: two drains LLQ : no garcia SKIN: warm and dry, no generalized rashes NEURO: AOx person, place, and situation. Face symmetric, speech normal, moves 4 ext spontaneously and equally Discharge Plan Discharge Items Patient Disposition: Home - Home Health Services Reason For Visit: DIVERTICULITIS, DRAIN Discharge Diagnosis: Diverticulitis complicated by abscesses Condition on Discharge: Fair Activity: Per Instructions section Lifting: No more than 5 pounds Non-emergency contact: Primary Care Provider and Surgeon Call non-emergency contact if: you have any medication questions, your symptoms worsen, your pain is worsening and you have a fever Follow-up/Referrals: Jhonathan Harmon DO [Primary Care Provider] - Mauri Ochoa MD [Physician] - Diet: Low Fiber Addtl Attending Provider Instructions: Continue ciprofloxacin and metronidazole as prescribed by [facility] until they run out. These will usually work. Stay on a bland low fiber diet Please follow up REYNALDO with primary care and also with surgery clinic -you will need repeat CT scan prior to surgery follow up in about 2 weeks to assess whether drains can be removed Return to the ER if you having increasing abdominal pain, fevers, weakness, nausea/vomiting, severe diarrhea or redness of your abdominal wall, severely elevated blood sugar Call your doctor if you get significant diarrhea from the antibiotics. Taking a probiotic may help. These are available in the drug store. It was a pleasure taking care of you in the hospital, Estelita East MD Pending Studies at Discharge: Yes (blood cultures, abscess culture) Stand-Alone Forms: My [facility] FiTeq, Smoking Cessation Medications and DC Order Prescriptions: Continued (DME) Wheeled Walker Misc See Rx Instructions .MEDSUPPLY Qty: 1 0RF Rx Instructions: As directed (DME) BD SafetyGlide Insulin Syringe 0.5 mL 29 gauge x 1/2" syringe See Rx Instructions .Route Qty: 100 2RF Rx Instructions: USE TO INJECT INSULIN FIVE TIMES A DAY metformin 1,000 mg tablet 1,000 mg PO BID Qty: 180 2RF (DME) needle (disp) 30 gauge 30 gauge x 1" needle See Rx Instructions .Route Qty: 100 0RF Rx Instructions: As directed (DME) blood-glucose meter [OneTouch Ultra2 Meter] Misc See Rx Instructions .Route Qty: 1 0RF Rx Instructions: As directed (DME) OneTouch Ultra Test Strip See Rx Instructions .Route Qty: 100 1RF Rx Instructions: As directed (DME) lancets [OneTouch UltraSoft 2 Lancet] 30 gauge misc See Rx Instructions .Route Qty: 100 1RF Rx Instructions: As directed (DME) FreeStyle Sebastián 3 [place] Misc See Rx Instructions .Route Qty: 1 0RF Rx Instructions: As directed (DME) FreeStyle Sebastián 3 Plus Sensor Device See Rx Instructions .Route Qty: 1 5RF Rx Instructions: As directed insulin lispro 100 unit/mL solution 4 unit subcut ACHS Qty: 15 5RF Rx Instructions: 10/10 : PER PT, "HARDLY EVER TAKE THIS MED". oxycodone 5 mg tablet 5 mg PO Q6H PRN (Reason: pain) Qty: 120 0RF baclofen 10 mg tablet 10 mg PO TID PRN (Reason: muscle spasm) Qty: 90 2RF aspirin 81 mg tablet,delayed release (DR/EC) 81 mg PO BID 42 Days Qty: 0 0RF atorvastatin 10 mg tablet 10 mg PO QPM insulin glargine [Lantus U-100 Insulin] 100 unit/mL solution 30 unit SC QAM metronidazole 500 mg tablet 500 mg PO TID Rx Instructions: BEGIN 11/20/24 X 14 DAYS ciprofloxacin HCl 500 mg tablet 500 mg PO BID Rx Instructions: BEGIN 11/20/24 X 14 DAYS Discharge Orders: Discharge Order (Routine); Ordered 11/25/24 Ordered By: Estelita East Admission Data Admit Date/Time: 11/23/24 23:47 Attending Provider: Estelita East Admit Provider: Negar Urbina Primary Care Provider: Jhonathan Harmon Other Providers: Negar Urbina; Justus Garcia; [facility],[place], [facility]ated [facility] Other Interventions: Discharge Summary Assessment (RN) Last Done: 11/25/24 09:59 Hospital Stay Data Consultations 11/23/24 23:43 ED Decision to Admit Stat 09/08/25 01:35 Consult General Surgery Routine Diagnostic Imagining Performed 11/23/24 21:52 CT abd pelvis IV con only Stat 11/24/24 13:[address] softtissperc w/gdnce Routine 11/25/24 08:00 IR abscess drain cath exchange Routine Pending Results Patient Have Any Pending Studies at Discharge: Yes (blood cultures, abscess culture) Discharge Instructions Given to Patient (Per Discharging Provider) Continue ciprofloxacin and metronidazole as prescribed by [facility] until they run out. These will usually work. Stay on a bland low fiber diet Please follow up REYNALDO with primary care and also with surgery clinic -you will need repeat CT scan prior to surgery follow up in about 2 weeks to assess whether drains can be removed Return to the ER if you having increasing abdominal pain, fevers, weakness, nausea/vomiting, severe diarrhea or redness of your abdominal wall, severely elevated blood sugar Call your doctor if you get significant diarrhea from the antibiotics. Taking a probiotic may help. These are available in the drug store. It was a pleasure taking care of you in the hospital, Estelita East MD Total Time Total Time Spent Total Time Spent (In Minutes): I personally spent: 55 minutes today on clinical care activities including: reviewing chart notes and vital signs reviewing labs reviewing studies - micro discussion with risk management consultant(s) discussion with school child care attendant examining and counseling the patient writing orders writing prescriptions, discharge instructions documentation Coding Level of Care Code 70076 INP/OBS DISCH >30 MIN Diagnoses Diverticulitis of intestine with abscess K57.20 Diverticulitis bleeding: unspecified bleeding status Diverticulitis site: large intestine Anemia D64.9 Diabetes 1.5, managed as type 1 E13.9 Coronary artery disease I25.10
[2024-11-24] MEDS: POTASSIUM CHLORIDE CRTAB 20 MEQ TABCR PO ONE (22:12)
[2024-11-24] MEDS: ATORVASTATIN 10 MG TAB PO SCH (22:13)
[2024-11-24] MEDS: ENOXAPARIN INJ 40 MG/0.4 ML SYR SQ SCH (22:13)
[2024-11-25] MEDS: ASPIRIN 81 MG ECTAB PO SCH (08:37)
[2024-11-25] MEDS: LANTUS PER UNIT CHARGE SQ SCH (08:41)
== END 2024-11-25 11:02 | disposition home health service (06) | DRG 871 ==
LOC: ED 18:28 → EDINP 23:47 → SUATTDRO 23:47 → 3W 11-24 18:31

== ENCOUNTER 2024-12-11 13:47 | Inpatient (IN) ==
--- NOTE | 2024-12-11 13:59 | Emergency Department Note ---
Impression & Plan Diverticulitis of large intestine with complication ED Provider Note CHIEF COMPLAINT: Pain HISTORY OF PRESENTING ILLNESS: The patient is a 64-year-old male who presents to the emergency department for evaluation of generalized pain. He states he has pain in his entire body, and has not left his bed for 6 days. He reports recent admission for drain placement for diverticulitis. He states he had a previous drain placed in [place], then had a second drain at this facility. Patient reports the drain is not currently working. He states he has pain from his abdomen, to his knees. Patient has a history of noncompliance, with follow-up care. REVIEW OF SYSTEMS: See HPI for pertinent positives and pertinent negatives. ALLERGIES: See below MEDICATIONS: See below PAST MEDICAL HISTORY: See below PHYSICAL EXAM: VITALS: Vitals are noted on the nurse's note and reviewed by myself. Vital signs stable. GENERAL: 64-year-old male, in no acute distress, nondiaphoretic, well-developed well-nourished. SKIN: IR drain noted to the left lower quadrant, no surrounding cellulitis. HEAD: Normocephalic atraumatic. HEART: Regular rate and rhythm without murmurs gallops or rubs. LUNGS: Clear to auscultation bilaterally without wheezes, rales or rhonchi. No retractions or accessory muscle use. ABDOMEN: Positive bowel sounds x 4. Soft, nontender, without masses or organomegaly. Donahue sign negative. No guarding or rebound tenderness. MUSCULOSKELETAL: Patient lying on right side, unwilling to assist with examination. Sensation intact bilateral lower extremities bilateral upper extremities. Pulses intact bilateral upper extremities, bilateral lower extremities. Strength 5/5. NEURO: Patient was alert and oriented to person place and time. No focal neurological deficits. DIFFERENTIAL DIAGNOSIS: Abscess, malposition, obstruction, infection, as well as other pathologies. ED COURSE AND MEDICAL DECISION MAKING: MEDICATIONS GIVEN: Zosyn 4.5 g 4.5 mg IV morphine, 1 L NSS bolus, potassium chloride 40 mEq p.o. MONITOR: Continuous monitoring manager: Order was placed for continuous monitoring manager. Patient was placed on the monitoring manager and continuous pulse ox. Patient was noted to be in normal sinus rhythm at an initial rate of 98 bpm per my interpretation. INTERPRETATION OF LABS: I interpreted the labs with full lab results as below in the lab section of this note. Pertinent lab results discussed in the MDM section below. INTERPRETATION OF IMAGING: Imaging studies were interpreted by myself and read by radiology as per the imaging section of this note. CHRONIC MEDICAL/SOCIAL CONDITIONS AFFECTING CARE: Diabetes mellitus type 2, severe protein calorie malnutrition, chronic pain, CAD CONSULTATIONS: Justus Garcia DO, general surgery MDM SUMMARY: The patient is a, 64-year-old male who arrives to the emergency department for evaluation of the above-stated complaint. Lab work was obtained. CBC shows no leukocytosis, chronic but stable anemia. Potassium 3.1, repleted with 40 mEq p.o. potassium. Anion gap 14. Lactate 1.1. Procalcitonin 0.27. Lipase 7. Urinalysis ordered, however not obtained while patient was in the department. CT imaging of the abdomen and pelvis with IV contrast was obtained which shows minimal acute diverticulitis of the sigmoid colon which is improved. Left lower quadrant drains well-positioned, and collections have decreased in size with mostly gas remaining and trace fluid. There is a small perforation of the proximal sigmoid colon with a thin fistula extending between the sigmoid colon and the deep collection. Stable wall thickening and reactive inflammation at the superior left lateral aspect of the urinary bladder with no gas seen within the urinary bladder. I contacted general surgery regarding the report of the small perforation with fistula, that will likely require repair, who stated the patient may be admitted to medicine, and he will consult our colorectal surgeon. Patient was provided 4.5 g IV Zosyn for antibiotic coverage. The patient will be admitted to Dr. Maria, from the [facility] hospitalist group. Please refer to his documentation for further patient workup and care. DIAGNOSIS: Diverticulitis of large intestine, with complication The patient's case was discussed with Dr. Cornejo, who agreed with my evaluation and treatment plan. The chart was completed utilizing [employer] Speech voice recognition software. Grammatical errors, random word insertions, pronoun errors, and incomplete sentences are an occasional consequence of this system due to software limitations, ambient noise, and hardware issues. Any formal questions or concerns about the content, text, or information contained within the body of this dictation should be directly addressed to the provider for clarification. 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 Severe protein-calorie malnutrition Tobacco dependence Wheezing Osteoarthritis of left hip Osteoarthritis of left knee Status post right knee replacement (~06/2024) Diabetes mellitus, type 2 Tinnitus, bilateral Benign essential hypertension Atherogenic dyslipidemia Osteoarthritis of right knee Chronic recurrent sinusitis Coronary artery disease Medical History Acute metabolic encephalopathy Diverticulitis of intestine with perforation and abscess Uncontrolled diabetes mellitus with ketoacidosis without coma Pseudohyponatremia Sacral fracture DKA (diabetic ketoacidosis) GERD (gastroesophageal reflux disease) controlled, stable per pt Chronic recurrent sinusitis per hx, nothing recent Hx of fracture (12/2023) sacral, due to fall Hx of fall (12/2023) broke tailbone- no surgery/ given baclofen Osteoarthritis of knee Tinnitus, bilateral Diabetes mellitus, type 2 NIDDM Coronary artery disease no stents; last cath 2024 - 40-50% LAD, 50% L circ, RCA without disease; [facility] [place] Cardiology - Dr Rodriguez Dyslipidemia Asthma allergy induced - prn inhaler Hypertension controlled, stable per pt Surgical History History of cardiac catheterization (12/2023) [facility] -- no stents- told 2 minor blockages and treating with meds- follows with te (05/13) S/p bilateral myringotomy with tube placement as a child, multiple times History of back surgery (2007) 2008, Lumbar - laser - herniated disc Family History Father Myocardial infarction Quadruple bypass Brother Myocardial infarction Lung cancer Mother Diabetes PAD (peripheral artery disease) Denies family history of Ovarian cancer Prostate cancer Breast cancer Colorectal cancer Social History Smoking Status: Current some day smoker Tobacco Type: Cigarettes Age Started Using Tobacco: 13; packs per day: 1; Cigarettes Per Day: pt "goes out to vehicle when stressed" and have 1-2.; Second Hand Exposure: No; Do You Dip or Chew Tobacco: No; Hx Alcohol Use: Yes Alcohol type: hard liquor Alcohol Intake Frequency: 2-3 x/Week Hx Substance Use: Yes Last Used Substance: Unknown Last Used Substance Other:: haven't used in a long time Preferred Language: Northern Irish Communication Ability: Effective Visual Impairment: No Limitations Hearing Ability: Normal Senior Principal Required: No Beliefs That Will Affect Care: None marital status: Current Living Situation: Alone Current Living Situation Comment: "half-way home current 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 Direct sunlight is very irrita) Assistive Devices: Glasses and Walker Allergies Allergies Allergy/AdvReac Type Severity Reaction Status Date / Time cyclobenzaprine AdvReac Severe Nightmares Verified 12/11/24 16:26 [From Maytecheri] Home Meds Home Medications Medication Instructions Recorded Confirmed ciprofloxacin HCl 500 mg tablet 500 mg PO BID 11/23/24 12/11/24 insulin glargine 100 unit/mL 30 unit SC QAM 11/23/24 12/11/24 subcutaneous solution (Lantus U-100 Insulin) metronidazole 500 mg tablet 500 mg PO TID 11/23/24 12/11/24 Previous Rx's Medication Instructions Recorded Wheeled Walker #1 ea 05/06/24 insulin syringe,safety needle 0.5 #100 ea 08/29/24 mL 29 gauge x 1/2" (BD SafetyGlide Insulin Syringe) needle (disp) 30 gauge 30 gauge x #100 ea 08/29/24 1" blood sugar diagnostic (OneTouch #100 ea 09/02/24 Ultra Test strips) blood-glucose meter (OneTouch #1 ea 09/02/24 Ultra2 Meter) lancets 30 gauge (OneTouch #100 ea 09/02/24 UltraSoft 2 Lancet) blood-glucose sensor (FreeStyle #1 ea 09/03/24 Sebastián 3 Plus Sensor device) blood-glucose,lithographers printer,cont #1 ea 09/03/24 (FreeStyle Sebastián 3 [place]) baclofen 10 mg tablet 10 mg PO TID PRN muscle spasm #90 10/15/24 tabs insulin lispro 100 unit/mL 4 unit (0.04 mL) subcut ACHS #15 mL 10/15/24 subcutaneous solution metformin 1,000 mg tablet 1,000 mg PO BID #180 tabs 10/17/24 oxycodone 10 mg tablet 10 mg PO Q6H PRN pain #120 tabs 11/28/24 Results & Data (ED) Vital Signs Vital Signs - 24 hr 12/11/24 13:58 12/11/24 13:58 12/11/24 14:13 Temperature 36.4 C L Temperature Source Oral Pulse Rate 98 H 104 H Pulse Rate [Finger] Pulse Rhythm [Finger] Pulse Strength [Finger] Respiratory Rate 20 Respiratory Effort / Characteristics Non-Labored Respiratory Depth Normal Normal Respiratory Pattern Blood Pressure 144/69 H Blood Pressure [Left Arm] Blood Pressure Mean 94 Blood Pressure Mean [Left Arm] Blood Pressure Position [Left Arm] Pulse Oximetry 96 92 Oxygen Delivery Method Room Air Sepsis Recent Fever Within 48 Hours No Sepsis New/Unexplained Change in Mental Status No Sepsis Action Taken by Nursing No Action Required 12/11/24 15:32 12/11/24 17:00 Temperature Temperature Source Pulse Rate Pulse Rate [Finger] 99 H 98 H Pulse Rhythm [Finger] Regular Pulse Strength [Finger] Normal Respiratory Rate 20 20 Respiratory Effort / Characteristics Non-Labored Respiratory Depth Normal Respiratory Pattern Regular Blood Pressure Blood Pressure [Left Arm] 163/78 H 143/69 H Blood Pressure Mean Blood Pressure Mean [Left Arm] 106 93 Blood Pressure Position [Left Arm] Right Lateral Lying Pulse Oximetry 96 98 Oxygen Delivery Method Room Air Room Air Sepsis Recent Fever Within 48 Hours Sepsis New/Unexplained Change in Mental Status Sepsis Action Taken by Half-Way Medications Current Medication List: was personally reviewed by me Laboratory Data Attestation: I reviewed the patient's lab results. 12/12/24 07:17 12/12/24 07:17 Lab Results 12/11/24 12/11/24 Range/Units 14:00 14:21 WBC 10.09 (4.8-10.8) K/ul RBC 3.70 L (4.70-6.10) M/uL Hgb 10.0 L (14.0-18.0) g/dl Hct 30.6 L (42.0-52.0) % MCV 82.7 (80.0-100.0) fL MCH 27.0 (25.0-34.0) pg MCHC 32.7 (32.0-36.0) g/dL RDW Std Deviation 42.2 (36.4-46.3) fL RDW Coeff of Marilin 14.2 (11.5-14.5) % Plt Count 461 H (130-400) K/uL MPV 9.2 L (9.4-12.4) fL Immature Gran % (Auto) 1.4 % Neut % (Auto) 75.9 % Lymph % (Auto) 10.4 % Alfalfa % (Auto) 10.2 % Eos % (Auto) 1.4 % Baso % (Auto) 0.7 % Neut # (Auto) 7.66 H (1.40-6.50) K/uL Lymph # (Auto) 1.05 L (1.20-3.40) K/uL Alfalfa # (Auto) 1.03 H (0.11-0.59) K/uL Eos # (Auto) 0.14 (0.00-0.50) K/uL Baso # (Auto) 0.07 (0.00-0.20) K/uL Immature Gran # (Auto) 0.14 (0.01-0.20) K/uL Sodium 136 (136-145) mmol/L Potassium 3.1 L (3.5-5.1) mmol/L Chloride 97 L (98-107) mmol/L Carbon Dioxide 25 (21-32) mmol/L Anion Gap 14 H (3-11) BUN 11 (6-23) mg/dl Creatinine 0.74 (0.6-1.4) mg/dl Est Cr Clr Drug Dosing 95.0 ml/min eGFR 99.93 BUN/Creatinine Ratio 14.9 (10-20) Glucose 116 H (70-99(Fasting)) mg/dl Lactate 1.1 (0.4-2.0) mmol/L Calcium 9.1 (8.6-10.3) mg/dl Total Bilirubin 1.3 H (0.2-1.0) mg/dl AST 13 (13-39) U/L ALT 10 (7-52) U/L Alkaline Phosphatase 47 (34-104) U/L Total Protein 7.7 (6.0-8.3) gm/dl Albumin 3.6 (3.4-5.0) gm/dl Globulin 4.1 H (2.5-4.0) gm/dl Albumin/Globulin Ratio 0.9 (0.9-2) Lipase 7 L (11-82) U/L Procalcitonin 0.27 (0-0.5) ng/ml Administered Medications Baclofen (Baclofen 10 Mg Tab) 10 mg PO TID PRN PRN Reason: muscle spasm Stop: 01/10/25 18:29 Last Admin: 12/12/24 06:11 Dose: 10 mg Documented By: Admin: 12/11/24 19:42 Dose: 10 mg Documented By: HERNANDO Hydromorphone HCl (Hydromorphone Inj 1 Mg/Ml Syringe) 1 mg IV Q3H PRN PRN Reason: Severe Pain (7,8,9,10) on NRS Stop: 12/26/24 08:46 Last Admin: 12/12/24 09:08 Dose: 1 mg Documented By: JASON Acetaminophen (Ofirmev) 1,000 mg in 100 mls @ 400 mls/hr IV Q8H PRN PRN Reason: Fever/Mild Pain (Pain 1,2,3) Stop: 12/14/24 17:45 Last Infusion: 12/12/24 09:40 Dose: Infused Documented By: Admin: 12/12/24 09:11 Dose: 400 mls/hr Documented By: Infusion: 12/11/24 21:36 Dose: Infused Documented By: Admin: 12/11/24 19:31 Dose: 400 mls/hr Documented By: HERNANDO Sodium Chloride (Nss) 1,000 mls @ 125 mls/hr IV .Q8H JOSE JUAN Stop: 12/14/24 18:29 Last Admin: 12/12/24 02:49 Dose: 125 mls/hr Documented By: Infusion: 12/12/24 02:49 Dose: Infused Documented By: Admin: 12/11/24 19:31 Dose: 125 mls/hr Documented By: HERNANDO Potassium Chloride (K Phillip / Wtr) 10 meq in 100 mls @ 100 mls/hr IV Q1H JOSE JUAN Stop: 12/12/24 12:29 Last Admin: 12/12/24 10:48 Dose: 100 mls/hr Documented By: JASON Magnesium Sulfate/Dextrose (Magnesium Sulfate / D5w) 1 gm in 100 mls @ 50 mls/hr IV Q2H JOSE JUAN Stop: 12/12/24 13:29 Last Admin: 12/12/24 10:47 Dose: 50 mls/hr Documented By: JASON Insulin Aspart (Insulin Aspart Per Unit Charge) 0 units SC Q6 JOSE JUAN Stop: 01/11/25 00:00 Last Admin: 12/12/24 07:04 Dose: Not Given Documented By: LAURIE Co-signed By: JASON Admin: 12/12/24 00:49 Dose: Not Given Documented By: HERNANDO Co-signed By: SCOOTER Ketorolac Tromethamine (Ketorolac Tromethamine 15 Mg/Ml Vial) 10 mg IV Q6H PRN PRN Reason: Pain, second line Stop: 12/17/24 09:24 Last Admin: 12/12/24 11:01 Dose: 10 mg Documented By: JASON Discontinued Medications Sodium Chloride (Nss) 1,000 mls @ 999 mls/hr IV .Q1H1M STA Stop: 12/11/24 15:08 Last Infusion: 12/11/24 15:29 Dose: Infused Documented By: Admin: 12/11/24 14:22 Dose: 999 mls/hr Documented By: CESAR Piperacillin Sod/Tazobactam Sod (Zosyn) 4.5 gm in 100 mls @ 200 mls/hr IV NOW ONE; Protocol Stop: 12/11/24 16:38 Last Infusion: 12/11/24 22:13 Dose: Infused Documented By: Admin: 12/11/24 18:01 Dose: 200 mls/hr Documented By: RON Insulin Aspart (Insulin Aspart Per Unit Charge) 0 units SC ONE ONE Stop: 12/11/24 21:01 Last Admin: 12/11/24 21:52 Dose: Not Given Documented By: HERNANDO Co-signed By: WOOD Ioversol (Optiray 320 100ml) 90 ml IV ONCE ONE Stop: 12/11/24 15:02 Last Admin: 12/11/24 15:01 Dose: 90 ml Documented By: JAYDEN Morphine Sulfate (Morphine Sulfate 4 Mg/Ml 1 Ml Carp\\Vial) 4 mg IV NOW STA Stop: 12/11/24 14:09 Last Admin: 12/11/24 14:21 Dose: 4 mg Documented By: CESAR Morphine Sulfate (Morphine Sulfate 2 Mg/Ml Carp) 2 mg IV Q4H PRN PRN Reason: Moderate Pain (4,5,6) on NRS Stop: 12/25/24 17:45 Last Admin: 12/11/24 20:15 Dose: 2 mg Documented By: HERNANDO Morphine Sulfate (Morphine Sulfate 4 Mg/Ml 1 Ml Carp\\Vial) 4 mg IV Q4H PRN PRN Reason: Severe Pain (7,8,9,10) on NRS Stop: 12/25/24 17:45 Last Admin: 12/12/24 06:10 Dose: 4 mg Documented By: Admin: 12/12/24 01:55 Dose: 4 mg Documented By: Admin: 12/11/24 21:53 Dose: 4 mg Documented By: Admin: 12/11/24 18:02 Dose: 4 mg Documented By: RON Potassium Chloride (Potassium Chloride Crtab 20 Meq Tabcr) 40 meq PO NOW STA Stop: 12/11/24 14:44 Last Admin: 12/11/24 15:28 Dose: 40 meq Documented By: QGV Imaging Data Attestation: I personally reviewed and interpreted this imaging study as follows: Radiologist's Impression: Abdomen/Pelvis CT 12/11/24 14:[address] WITH IV CONTRAST CT DOSE: 1692.73 mGy.cm HISTORY: abd pain, IR drain not working TECHNIQUE: Multiaxial CT images of the abdomen and pelvis were performed following the IV administration of 90 cc of Optiray, A dose lowering technique was utilized adhering to the principles of ALARA. COMPARISON STUDY: 11/23/2024 FINDINGS: ABDOMEN: There is a gallstone without evidence of acute cholecystitis. Liver, spleen, and adrenal glands are unremarkable. Stable small calcification at the pancreatic body with mild pancreatic ductal dilatation. Pancreas is otherwise unremarkable. Kidneys show no hydronephrosis or calculi. Stable small cyst upper pole left kidney. There are moderate atherosclerotic calcifications. No abdominal aortic aneurysm. Pelvis: Prostate is enlarged. Urinary bladder is mildly distended. There are 2 anterior left lower quadrant drains, one within the subcutaneous collection of fluid and gas and one within the subcutaneous fascial collection of fluid and gas. Both collections have decreased in size with predominantly gas remaining and only trace fluid. There is sigmoid diverticulosis. There is mild wall thickening at the proximal sigmoid colon with minimal adjacent inflammation, improved. There is a small perforation at the proximal sigmoid colon with a thin fistula extending between the sigmoid colon and the deep collection. No other bowel inflammation or obstruction seen. Normal appendix. No new areas of free fluid or free air. No new abscess. There is stable wall thickening and reactive formation at the superior left lateral aspect of the urinary bladder with no gas seen within the urinary bladder. Osseous structures: There is lumbar degenerative disc disease. There are severe degenerative changes at the left hip. IMPRESSION: 1. Minimal acute diverticulitis at the sigmoid colon, improved. 2. The left lower quadrant drains are well-positioned and the collections have decreased in size with mostly gas remaining and trace fluid. 3. There is a small perforation of the proximal sigmoid colon with a thin fistula extending between the sigmoid colon and the deep collection. 4. Stable wall thickening and reactive inflammation at the superior left lateral aspect of the urinary bladder with no gas seen within the urinary bladder. 5. No adverse change seen. Otherwise as described. ACT 112: Negative or not required by law. The above report was generated using voice recognition software. It may contain grammatical, syntax or spelling errors. Electronically signed by: Henrique Esposito M.D. 12/11/2024 3:31 PM Discharge Plan Visit Data Chief Complaint: Pain (Generalized) ED Provider: Heather Cornejo ED Midlevel Provider: Kenzie Maldonado Discharge Problem: Diverticulitis of large intestine with complication Patient Disposition: Admitted As Inpatient Condition: Fair Discharge Instructions Interventions: ED Discharge Assessment Last Done: 12/11/24 18:25
--- NOTE | 2024-12-11 14:02 | Emergency Department Note ---
ED Visit Note I was consulted by the Advanced Practice Provider, TARYN Prajapati. I performed a substantive portion of the visit. This includes aspects of: History: Patient is a 64-year-old male presenting with severe abdominal pain for the last 6 days. He also reports he has been having pain all over his body. He states he has not left his bed for 6 days. MDM: Laboratory workup in the emergency department showed normal WBC; hypokalemia (K 3.1); normal AST/ALT; normal procalcitonin; normal lactate. CT abdomen/pelvis showed minimal acute diverticulitis of the sigmoid colon. However, there is noted to be a small perforation to the proximal sigmoid colon with a thin fistula extending between the sigmoid and the deep fluid collection. Patient was given 4 mg IV morphine for pain management. Given IV Zosyn for antibiotics. Surgery was consulted and recommended admission to medicine service. Patient to be admitted to inpatient hospitalist. .
[2024-12-11] MEDS: MoRPHine SULFATE 4 MG/ML 1 ML CARP\\VIAL IV STA (14:21)
[2024-12-11] MEDS: SODIUM CHLORIDE 0.9% 1,000 ML IV STA (14:22)
[2024-12-11 14:28] LABS: Hematocrit (blood only) 30.6 % (42.0-52.0); Hemoglobin 10.0 g/dl (14.0-18.0); Immature Granulocytes # (auto) 0.14 K/uL (0.01-0.20); Immature Granulocytes % (auto) 1.4 %; Mean Corpuscular Hemoglobin 27.0 pg (25.0-34.0); Mean Corpuscular Volume 82.7 fL (80.0-100.0); Platelet Count 461 K/uL (130-400); RDW Standard Deviation 42.2 fL (36.4-46.3); Red Blood Count 3.70 M/uL (4.70-6.10); White Blood Count 10.09 K/ul (4.8-10.8)
[2024-12-11 14:41] LABS: Alanine Aminotransferase 10.0 U/L (7-52); Albumin Globulin Ratio 0.9 (0.9-2); Albumin Level 3.6 gm/dl (3.4-5.0); Alkaline Phosphatase 47.0 U/L (34-104); Anion Gap 14.0 (3-11); Bilirubin,Total 1.3 mg/dl (0.2-1.0); Blood Urea Nitrogen 11.0 mg/dl (6-23); Calcium 9.1 mg/dl (8.6-10.3); Carbon Dioxide 25.0 mmol/L (21-32); Chloride 97.0 mmol/L (98-107); Creatinine Clr Calc Pharmacy 95.0 ml/min; Globulin 4.1 gm/dl (2.5-4.0); Glucose 116.0 mg/dl (70-99(Fasting)); Lipase 7.0 U/L (11-82); Potassium 3.1 mmol/L (3.5-5.1); Sodium 136.0 mmol/L (136-145); Total Protein 7.7 gm/dl (6.0-8.3)
[2024-12-11] MEDS: OPTIRAY 320 100ml IV ONE (15:01)
[2024-12-11] MEDS: POTASSIUM CHLORIDE CRTAB 20 MEQ TABCR PO STA (15:28)
--- NOTE | 2024-12-11 15:33 | CT Scan Report ---
ABDOMEN AND PELVIS CT WITH IV CONTRAST CT DOSE: 1692.73 mGy.cm HISTORY: abd pain, IR drain not working TECHNIQUE: Multiaxial CT images of the abdomen and pelvis were performed following the IV administrat ion of 90 cc of Optiray, A dose lowering technique was utilized adhering to the principles of ALARA. COMPARISON STUDY: 11/23/2024 FINDINGS: ABDOMEN: There is a gallstone without evidence of acute cholecystitis. Liver, spleen, and adrenal gla nds are unremarkable. Stable small calcification at the pancreatic body with mild pancreatic ductal d ilatation. Pancreas is otherwise unremarkable. Kidneys show no hydronephrosis or calculi. Stable smal l cyst upper pole left kidney. There are moderate atherosclerotic calcifications. No abdominal aortic aneurysm. Pelvis: Prostate is enlarged. Urinary bladder is mildly distended. There are 2 anterior left lower qu adrant drains, one within the subcutaneous collection of fluid and gas and one within the subcutaneou s fascial collection of fluid and gas. Both collections have decreased in size with predominantly gas remaining and only trace fluid. There is sigmoid diverticulosis. There is mild wall thickening at th e proximal sigmoid colon with minimal adjacent inflammation, improved. There is a small perforation a t the proximal sigmoid colon with a thin fistula extending between the sigmoid colon and the deep col lection. No other bowel inflammation or obstruction seen. Normal appendix. No new areas of free fluid or free air. No new abscess. There is stable wall thickening and reactive formation at the superior left lateral aspect of the urinary bladder with no gas seen within the urinary bladder. Osseous structures: There is lumbar degenerative disc disease. There are severe degenerative changes at the left hip. IMPRESSION: 1. Minimal acute diverticulitis at the sigmoid colon, improved. 2. The left lower quadrant drains are well-positioned and the collections have decreased in size with mostly gas remaining and trace fluid. 3. There is a small perforation of the proximal sigmoid colon with a thin fistula extending between t he sigmoid colon and the deep collection. 4. Stable wall thickening and reactive inflammation at the superior left lateral aspect of the urinar y bladder with no gas seen within the urinary bladder. 5. No adverse change seen. Otherwise as described. ACT 112: Negative or not required by law. The above report was generated using voice recognition software. It may contain grammatical, syntax o r spelling errors. Electronically signed by: Henrique Esposito M.D. 12/11/2024 3:31 PM
--- NOTE | 2024-12-11 15:55 | Surgery Consultation ---
Date of Consultation December 11, 2024 Assessment & Plan (1) Diverticulitis of large intestine with complication: His CT images and results were personally viewed interpreted by myself His CT images are actually improved compared to the previous, but he does have a fistula to the skin with this feculent drainage coming out of his abdomen No indications for any emergent surgical exploration He is going to be admitted by the medical team, keep n.p.o. and give IV antibiotics Surgery will follow along He will likely need resection and ostomy formation at some point History of Present Illness Reason for Consultation: Diverticulitis History of Present Illness This is a 64-year-old male who came into the ER with severe abdominal pain for the past 6 days. He states he was unable to get out of bed over that time frame. He also complains of back hip and knee pain. He has a longstanding history of diverticulitis since August of this year. He was admitted for a few days and did get better without surgery. He did have an IR drain placed at [facility] at some point and was admitted here 2 to 3 weeks ago with symptoms as well. He did have another IR drain placed at that time. He returns today as he just does not seem to be getting better. Denies any fevers or chills. He denies any previous abdominal surgeries. Allergies Allergy/AdvReac Type Severity Reaction Status Date / Time cyclobenzaprine AdvReac Severe Nightmares Verified 11/28/24 11:38 [From Flexeril] Home Medications Medication Instructions Recorded Confirmed Type Wheeled Walker #1 ea 05/06/24 11/28/24 Rx aspirin 81 mg tablet,delayed 81 mg PO BID 42 days #0 tabs 07/04/24 11/28/24 Rx release atorvastatin 10 mg tablet 10 mg PO QPM 08/23/24 11/28/24 History insulin syringe,safety needle 0.5 #100 ea 08/29/24 11/28/24 Rx mL 29 gauge x 1/2" (BD SafetyGlide Insulin Syringe) needle (disp) 30 gauge 30 gauge x #100 ea 08/29/24 11/28/24 Rx 1" blood sugar diagnostic (OneTouch #100 ea 09/02/24 11/28/24 Rx Ultra Test strips) blood-glucose meter (OneTouch #1 ea 09/02/24 11/28/24 Rx Ultra2 Meter) lancets 30 gauge (OneTouch #100 ea 09/02/24 11/28/24 Rx UltraSoft 2 Lancet) blood-glucose sensor (FreeStyle #1 ea 09/03/24 11/28/24 Rx Sebastián 3 Plus Sensor device) blood-glucose,pick remover,cont #1 ea 09/03/24 11/28/24 Rx (FreeStyle Sebastián 3 [place]) baclofen 10 mg tablet 10 mg PO TID PRN muscle spasm #90 10/15/24 11/28/24 Rx tabs insulin lispro 100 unit/mL 4 unit (0.04 mL) subcut ACHS #15 mL 10/15/24 11/28/24 Rx subcutaneous solution metformin 1,000 mg tablet 1,000 mg PO BID #180 tabs 10/17/24 11/28/24 Rx ciprofloxacin HCl 500 mg tablet 500 mg PO BID 11/23/24 11/28/24 History insulin glargine 100 unit/mL 30 unit SC QAM 11/23/24 11/28/24 History subcutaneous solution (Lantus U-100 Insulin) metronidazole 500 mg tablet 500 mg PO TID 11/23/24 11/28/24 History oxycodone 10 mg tablet 10 mg PO Q6H PRN pain #120 tabs 11/28/24 11/28/24 Rx Patient History Medical History Acute metabolic encephalopathy Diverticulitis of intestine with perforation and abscess Uncontrolled diabetes mellitus with ketoacidosis without coma Pseudohyponatremia Sacral fracture DKA (diabetic ketoacidosis) GERD (gastroesophageal reflux disease) controlled, stable per pt Chronic recurrent sinusitis per hx, nothing recent Hx of fracture (12/2023) sacral, due to fall Hx of fall (12/2023) broke tailbone- no surgery/ given baclofen Osteoarthritis of knee Tinnitus, bilateral Diabetes mellitus, type 2 NIDDM Coronary artery disease no stents; last cath 2024 - 40-50% LAD, 50% L circ, RCA without disease; [facility] [place] [facility] Dr Rodriguez Dyslipidemia Asthma allergy induced - prn inhaler Hypertension controlled, stable per pt Surgical History History of cardiac catheterization (12/2023) [facility] -- no stents- told 2 minor blockages and treating with meds- follows with te (05/13) S/p bilateral myringotomy with tube placement as a child, multiple times History of back surgery (2007) 2007, Lumbar - laser - herniated disc Family History Father Myocardial infarction Quadruple bypass Brother Myocardial infarction Lung cancer Mother Diabetes PAD (peripheral artery disease) Denies family history of Ovarian cancer Prostate cancer Breast cancer Colorectal cancer Social History Smoking Status: Current some day smoker Tobacco Type: Cigarettes Age Started Using Tobacco: 13; packs per day: 1; Cigarettes Per Day: 5-6 cigs per day (Advised); Second Hand Exposure: No; Do You Dip or Chew Tobacco: No; Hx Alcohol Use: Yes Alcohol type: hard liquor Alcohol Intake Frequency: 2-3 x/Week Hx Substance Use: Yes Last Used Substance: Unknown Last Used Substance Other:: "I haven't used it in awhile" Preferred Language: Hong Konger Communication Ability: Effective Visual Impairment: No Limitations Hearing Ability: Normal Entertainment Production Professional Required: No Beliefs That Will Affect Care: Jewish Jewish Beliefs: latter day marital status: Current Living Situation: Alone Current Living Situation Comment: "alf home" 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 Direct sunlight is very irrita) Assistive Devices: None Review of Systems Constitutional: no fever and no chills Eyes: no blind spots and no corrective lenses Ear, Nose, Mouth, Throat: no ear pain and no hearing loss Respiratory: no cough and no dyspnea Cardiovascular: no chest pain and no dyspnea on exertion Gastrointestinal: + abdominal pain; no nausea and no vomit ing Genitourinary: no dysuria or no decreased urination Musculoskeletal: no back pain and no neck pain Integumentary: no acne and no changing lesions Neurologic: no gait abnormality and no tingling Psychiatric: no behavioral changes and no depression Hematologic / Lymphatic: no easy bleeding and no easy bruising Physical Exam Constitutional: WD/WN, vitals as above Eyes: PERRL, conjunctivae normal, anicteric sclerae ENMT: external ear and nose normal, oropharynx normal Neck: trachea midline, no thyromegaly Respiratory: normal respiratory effort, lungs clear to auscultation Cardiovascular: RRR, no murmur, no edema Gastrointestinal (Abdomen): Inspection/Auscultation: abdomen normal to inspection; abdomen not distended Percussion/Palpation: + abdomen tender (Left abdomen) and abdomen soft; no guarding IR drains in place with feculent output from around the drain Musculoskeletal: no cyanosis or clubbing, extremities motor strength 5/5 Skin: no rashes, warm and dry Neurologic: PERRL, EOMI, accommodation nl, no face palsy, no dysarthria Psychiatric: A+Ox3, euthymic affect Results & Data Vital Signs (Past 12 Hours) Vital Signs Temp Pulse Pulse Resp BP BP Pulse Ox 12/11/24 15:32 99 H 20 163/78 H 96 12/11/24 14:13 104 H 92 12/11/24 13:58 36.4 C L 98 H 20 144/69 H 96 O2 Del Method 12/11/24 15:32 Room Air 12/11/24 14:13 12/11/24 13:58 Room Air PG Care Time/CCT Total # of Minutes Spent Total Time Spent with Patient: Total time spent is greater than 50% in coordination of care (as documented) at patient's floor/unit and/or counseling patient: Coding Level of Care Code 10379 INT INP/OBS CARE 75MIN Diagnoses Diverticulitis of large intestine with complication K57.32
--- NOTE | 2024-12-11 16:14 | History & Physical Report ---
Date of Service December 11, 2024 Assessment & Plan (1) Diverticulitis of large intestine with complication: (2) Diabetes 1.5, managed as type 1: Plan Lorenzo is a 64-year-old man with past medical history of complicated diverticulitis with LLQ IR drain placement x 2 for diverticular abscess, T2DM, dyslipidemia, CAD, OA, tobacco dependence, GERD, and severe protein calorie malnutrition. He returned to the ED with severe abdominal pain x 6 days and has not been out of bed during that timeframe as well. He was admitted for management of his complicated diverticulitis. #Complicated diverticulitis, drain in place -longstanding history of diverticulitis since August of this year. Multiple hospitalizations since then for the same. Had an IR drain placed at [facility] previously then had another IR drain placed at [facility] while admitted here a few weeks ago. - CT A/P on admission shows improvement in diverticulitis compared to previous but does note small perforation of the proximal sigmoid colon with a thin fistula extending between the sigmoid colon and the deep collection - Afebrile, no leukocytosis, normal lactate, normal procalcitonin on admission - Start Zosyn IV - Keep n.p.o. - Will start maintenance IV fluids with NSS at 125 mL/hr - Pain regimen: Tylenol PRN mild pain/fever, morphine 4-6 mg IV Q4h PRN moderate-severe pain - General surgery consulted and following - he will likely need resection and ostomy formation at some point #Hypokalemia - mild, K 3.1 on admission. Repleted with KCl 40 mEq p.o. in ED. Trend with AM labs #Elevated BP - likely due to pain. No formal diagnosis of HTN - Anticipate improvement in BP as pain control improves, continue to monitor - Hydralazine IV with parameters available as needed #Anemia | thrombocytosis - B12 and folate WNL last admission - Will check iron panel and ferritin with AM labs #DMT1.5 Home regimen includes Lantus 30U AM, lispro, metformin. Last A1c 15.8% in August 2024 - Hold home regimen - Utilize Lantus and SSI while hospitalized - Pharmacy consulted for glycemic management in setting of n.p.o. status #CADcontinue atorvastatin, hold aspirin in case of surgical intervention #Chronic paincontinue home baclofen. Hold oxycodone with pain control regimen as outlined above VTE PPx: SCDs. Defer chemoprophylaxis with possible upcoming surgical intervention. Dispo: Admission to [facility] Reviewed outpatient and prior hospital records History of Present Illness Chief Complaint: Abdominal pain Primary Care Provider: Jhonathan Harmon DO [place] is a 64-year-old man with past medical history of complicated diverticulitis with LLQ IR drain placement x 2 for diverticular abscess, T2DM, dyslipidemia, CAD, OA, tobacco dependence, GERD, and severe protein calorie malnutrition. He presented from home with severe abdominal pain x 6 days. At the time of my exam, the patient was lying in bed in no acute distress. History is very difficult to obtain due to patient being unwilling to answer most questions. He repeatedly states "it is all bad. Just an awful experience. They did a lousy job the last time I was here. I do not want to talk about it." He expresses a lot of frustration towards his son for bringing him back to the ED. When reviewing ROS, he responds "I have felt everything" but would not elaborate further. He does note that his drains have been leaking. We discussed his imaging findings for today and the current plan in place. He was more pleasant by the end of my visit. Vitals on admission significant for hypertension with BP 163/78, tachycardia with HR 99; vitals otherwise stable. Labs on admission are significant for anemia with hemoglobin at baseline 10.0, thrombocytosis with platelets 461, hypokalemia with potassium 3.1, anion gap of 14, and slightly elevated T. bili at 1.3. No leukocytosis. Normal lactate at 1.1. Normal procalcitonin 0.27. CT A/P on admission reveals minimal acute diverticulitis at the sigmoid colon, improved. The left lower quadrant drains are well-positioned and the collections have decreased in size with mostly gas remaining and trace fluid. There is a small portion of the proximal sigmoid colon with a thin fistula extending between the sigmoid colon and the deep collection. We discussed code status, patient wishes to be a DNR/DNI. Allergies Allergy/AdvReac Type Severity Reaction Status Date / Time cyclobenzaprine AdvReac Severe Nightmares Verified 12/11/24 16:26 [From Flexeril] Home Medications Medication Instructions Recorded Confirmed Type Wheeled Walker #1 ea 05/06/24 11/28/24 Rx insulin syringe,safety needle 0.5 #100 08/29/24 11/28/24 Rx mL 29 gauge x 1/2" (BD SafetyGlide Insulin Syringe) needle (disp) 30 gauge 30 gauge x #100 08/29/24 11/28/24 Rx 1" blood sugar diagnostic (OneTouch #100 ea 09/02/24 11/28/24 Rx Ultra Test strips) blood-glucose meter (OneTouch #1 ea 09/02/24 11/28/24 Rx Ultra2 Meter) lancets 30 gauge (OneTouch #100 09/02/24 11/28/24 Rx UltraSoft 2 Lancet) blood-glucose sensor (FreeStyle #1 09/03/24 11/28/24 Rx Sebastián 3 Plus Sensor device) blood-glucose,employment evaluator/case manager,cont #1 09/03/24 11/28/24 Rx (FreeStyle Sebastián 3 [place]) baclofen 10 mg tablet 10 mg PO TID PRN muscle spasm #90 10/15/24 12/11/24 Rx tabs insulin lispro 100 unit/mL 4 unit (0.04 mL) subcut ACHS #15 mL 10/15/24 12/11/24 Rx subcutaneous solution metformin 1,000 mg tablet 1,000 mg PO BID #180 tabs 10/17/24 12/11/24 Rx ciprofloxacin HCl 500 mg tablet 500 mg PO BID 11/23/24 12/11/24 History insulin glargine 100 unit/mL 30 unit SC QAM 11/23/24 12/11/24 History subcutaneous solution (Lantus U-100 Insulin) metronidazole 500 mg tablet 500 mg PO TID 11/23/24 12/11/24 History oxycodone 10 mg tablet 10 mg PO Q6H PRN pain #120 tabs 11/28/24 12/11/24 Rx Past Med/Surg History Problem List (Updated 12/01/24 @ 00:07 by Background Daemon) Acute respiratory alkalosis (Acute) Acute hyperglycemia (Acute) Diverticulitis of large intestine with complication (Acute) Abscess of groin, left (Acute) Anemia Chronic pain Current use of insulin Diabetes 1.5, 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 Severe protein-calorie malnutrition Tobacco dependence Wheezing Osteoarthritis of left hip Osteoarthritis of left knee Status post right knee replacement (~06/2024) Diabetes mellitus, type 2 Tinnitus, bilateral Benign essential hypertension Atherogenic dyslipidemia Osteoarthritis of right knee Chronic recurrent sinusitis Coronary artery disease Medical History Acute metabolic encephalopathy Diverticulitis of intestine with perforation and abscess Uncontrolled diabetes mellitus with ketoacidosis without coma Pseudohyponatremia Sacral fracture DKA (diabetic ketoacidosis) GERD (gastroesophageal reflux disease) controlled, stable per pt Chronic recurrent sinusitis per hx, nothing recent Hx of fracture (12/2023) sacral, due to fall Hx of fall (12/2023) broke tailbone- no surgery/ given baclofen Osteoarthritis of knee Tinnitus, bilateral Diabetes mellitus, type 2 NIDDM Coronary artery disease no stents; last cath 2024 - 40-50% LAD, 50% L circ, RCA without disease; [facility] [place] - Dr Rodriguez Dyslipidemia Asthma allergy induced - prn inhaler Hypertension controlled, stable per pt Surgical History History of cardiac catheterization (12/2023) [facility] [place] -- no stents- told 2 minor blockages and treating with meds- follows with te (05/13) S/p bilateral myringotomy with tube placement as a child, multiple times History of back surgery (2007) 2007, Lumbar - laser - herniated disc Family History Father Myocardial infarction Quadruple bypass Brother Myocardial infarction Lung cancer Mother Diabetes PAD (peripheral artery disease) Denies family history of Ovarian cancer Prostate cancer Breast cancer Colorectal cancer Social History Smoking Status: Current some day smoker Tobacco Type: Cigarettes Age Started Using Tobacco: 13; packs per day: 1; Cigarettes Per Day: 5-6 cigs per day (Advised); Second Hand Exposure: No; Do You Dip or Chew Tobacco: No; Hx Alcohol Use: Yes Alcohol type: hard liquor Alcohol Intake Frequency: 2-3 x/Week Hx Substance Use: Yes Last Used Substance: Unknown Last Used Substance Other:: "I haven't used it in awhile" Preferred Language: Polish Communication Ability: Effective Visual Impairment: No Limitations Hearing Ability: Normal Litigation Services Manager Required: No Beliefs That Will Affect Care: Voodoo Voodoo Beliefs: protestant marital status: Current Living Situation: Alone Current Living Situation Comment: "skilled nursing home" 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 Direct sunlight is very irrita) Assistive Devices: None Review of Systems Review of Systems: All systems reviewed & are unremarkable except as noted in HPI & below Gastrointestinal: + abdominal pain Musculoskeletal: + back pain and + joint pain Physical Exam Physical Exam: General: No acute distress, nondiaphoretic, well-developed, well-nourished. Iritable and agitated at times. Skin: Warm, dry. No peripheral edema noted. Cardiac: Mildly tachycardic rate in 90s and regular rhythm without murmurs gallops or rubs. Pulm: Clear to auscultation bilaterally without wheezes, rales or rhonchi. Normal respiratory effort. 96% on room air. Abdominal: Soft, nondistended. Tenderness most prominent in LLQ. IR drains in place with feculent drainage around site. Neuro: A&O x3. No focal neurological deficits. Results & Data Results & Data Vital Signs (Past 12 Hours) Vital Signs Temp Pulse Pulse Resp BP BP Pulse Ox 12/11/24 15:32 99 H 20 163/78 H 96 12/11/24 14:13 104 H 92 12/11/24 13:58 97.5 F L 98 H 20 144/69 H 96 O2 Del Method 12/11/24 15:32 Room Air 12/11/24 14:13 12/11/24 13:58 Room Air Laboratory Results Reviewed CBC with differential Reviewed CMP, chemistries Diagnostic Findings Reviewed CT A/P Supervising Physician Co-Signing Physician Notes Patient seen and examined, chart reviewed, case discussed with Estelita Wong PA-C and I agree with the assessment and plan as above except as otherwise noted above. General: A&Ox3. NAD. Cooperative. Pulm: CTAB A&P. -wheezes, -rales, -rhonchi. Symmetrical chest rise. No increase work of breathing. No respiratory distress. Cardiac: RRR, -mrg. Radial pulses intact and symmetrical. Abdominal: Soft. LLQ drain All labs and images reviewed Agree w/ above. Complicated diverticulitis s/p IR drain placement with perforation and developing fistula. Anticipate surgical intervention and likely ostomy. Nontoxic at bedside. NPO. Zosyn as noted. PG Care Time/CCT Total # of Minutes Spent Total Time Spent with Patient: Total time spent is greater than 50% in coordination of care (as documented) at patient's floor/unit and/or counseling patient: Coding Level of Care Code 38992 INT INP/OBS CARE MIN Diagnoses Diverticulitis of large intestine with complication K57.32 Diabetes 1.5, managed as type 1 E13.9
[2024-12-11] MEDS: PIPERACILLIN/TAZOBACTAM 4.5 GM/100 ML BAG IV ONE (18:01)
[2024-12-11] MEDS: MoRPHine SULFATE 4 MG/ML 1 ML CARP\\VIAL IV PRN (18:02)
[2024-12-11] MEDS ORDERED: DEXTROSE 50% 50 ML SYRINGE IV PRN (18:30)
[2024-12-11] MEDS ORDERED: PHARMACY GLYCEMIC MGMT CONSULT PRN (18:30)
[2024-12-11] MEDS ORDERED: ACETAMINOPHEN 325 MG TAB PO PRN (18:30)
[2024-12-11] MEDS ORDERED: ONDANSETRON INJ 2 MG/ML 2 ML VIAL IV PRN (18:30)
[2024-12-11] MEDS ORDERED: ALUMINUM/MAGNESIUM SUSP 30 ML UDC PO PRN (18:30)
[2024-12-11] MEDS ORDERED: GLUCOSE 40% GEL 15 GM TUBE PO PRN (18:30)
[2024-12-11] MEDS ORDERED: GLUCAGON FOR INJ 1 MG VIAL SQ PRN (18:30)
[2024-12-11] MEDS ORDERED: GLUCOSE 10 TAB/TUBE PO PRN (18:30)
[2024-12-11] MEDS ORDERED: CARBOHYDRATES FOR HYPOGLYCEMIA PO PRN (18:30)
[2024-12-11] MEDS: ACETAMINOPHEN 1,000 MG/100 ML VIAL IV PRN (19:31)
[2024-12-11] MEDS: SODIUM CHLORIDE 0.9% 1,000 ML IV SCH (19:31)
[2024-12-11] MEDS: BACLOFEN 10 MG TAB PO PRN (19:42)
[2024-12-11] MEDS: MoRPHine SULFATE 2 MG/ML CARP IV PRN (20:15)
[2024-12-11] MEDS ORDERED: LANTUS PER UNIT CHARGE SQ SCH (21:00)
[2024-12-11] MEDS: INSULIN ASPART PER UNIT CHARGE SC ONE (21:52)
[2024-12-12 00:26] LABS: Appearance Urine Clear (Clear); Bacteria Urine Automated None Seen (None Seen); Epithelial Cell Urine Auto 0-2 /hpf (0-2); Glucose Urine UA Negative (Negative); WBC Urine Automated 0-5 /hpf (0-5)
[2024-12-12] MEDS: INSULIN ASPART PER UNIT CHARGE SC SCH ×2 (00:49→17:34)
[2024-12-12 07:39] LABS: Hematocrit (blood only) 26.5 % (42.0-52.0); Hemoglobin 8.9 g/dl (14.0-18.0); Immature Granulocytes # (auto) 0.08 K/uL (0.01-0.20); Immature Granulocytes % (auto) 1.1 %; Mean Corpuscular Hemoglobin 27.6 pg (25.0-34.0); Mean Corpuscular Volume 82.0 fL (80.0-100.0); Platelet Count 384 K/uL (130-400); RDW Standard Deviation 42.0 fL (36.4-46.3); Red Blood Count 3.23 M/uL (4.70-6.10); White Blood Count 7.04 K/ul (4.8-10.8)
[2024-12-12 08:04] LABS: Anion Gap 10 (3-11); Blood Urea Nitrogen 9 mg/dl (6-23); Calcium 8.5 mg/dl (8.6-10.3); Carbon Dioxide 24 mmol/L (21-32); Chloride 102 mmol/L (98-107); Creatinine Clr Calc Pharmacy 123.9 ml/min; Glucose 109 mg/dl (70-99(Fasting)); Potassium 3.2 mmol/L (3.5-5.1); Sodium 136 mmol/L (136-145)
[2024-12-12 08:06] LABS: Hemoglobin A1C 8.4 % (4.5-5.6)
[2024-12-12 08:24] LABS: Ferritin 827.3 ng/ml (8-388)
[2024-12-12 08:27] LABS: Alanine Aminotransferase 12 U/L (7-52); Albumin Globulin Ratio 0.8 (0.9-2); Albumin Level 3.0 gm/dl (3.4-5.0); Alkaline Phosphatase 67 U/L (34-104); Bilirubin,Total 1.4 mg/dl (0.2-1.0); Globulin 3.6 gm/dl (2.5-4.0); Iron < 10 mcg/dl (35-175); Magnesium 1.4 mg/dl (1.7-2.4); Total Iron Binding Cap Calc 157 mcg/dl (250-450); Total Protein 6.6 gm/dl (6.0-8.3); Transferrin 112 mg/dl (200-360)
[2024-12-12] MEDS: HYDROmorphone INJ 1 MG/ML SYRINGE IV PRN (09:08)
[2024-12-12] MEDS: MAGNESIUM SULFATE / D5W 1 GM/100 ML BAG IV SCH (10:47)
[2024-12-12] MEDS: POTASSIUM CHLORIDE / WTR 10 MEQ/100 ML PLCT IV SCH (10:48)
[2024-12-12] MEDS: KETOROLAC TROMETHAMINE 15 MG/ML VIAL IV PRN (11:01)
--- NOTE | 2024-12-12 11:35 | Pharmacy Report ---
Pharmacy Glycemic Short Note 2 - Date of Service December 12, 2024 - Glycemic Short BSG Results (Last 24 hours): 12/11/24 12/11/24 12/12/24 14:00 20:23 00:02 Glucose 116 H POC Glucose 124 H 111 H 12/12/24 12/12/24 06:07 07:17 Glucose 109 H POC Glucose 109 H OUTPATIENT ANTIDIABETIC REGIMEN: * Lantus 30 units SQ daily * insulin lispro 4 units SQ ACHS * metformin 1000mg PO BID HbA1c: 8.4% on 12/12/24 ASSESSMENT: * Lorenzo is a 64 year old male who was admitted 12/11 for diverticulitis with small perforation of the proximal sigmoid colon. He is a type 1.5 diabetic who is managed as a type 1 and pharmacy has been consulted for glycemic management while he is admitted. * BSG on admit was 116mg/dL and was 124mg/dL. Fasting BSG was 109mg/dL. He is NPO for possible surgical intervention. * A weight based bolus insulin regimen with a stress of 2 was started and a Lantus scale (0,5,or 10 units depending on BSG) was added at HS PLAN FOR INPATIENT GLYCEMIC CONTROL: * Hold outpatient diabetes medications * Basal insulin * Lantus scale SQ at HS (0, 5, or 10 units depending on BSG). * Bolus insulin * NovoLog per scale ACHS or Q6hrs while NPO * Goal Range: Low 110 mg/dL - High 140 mg/dL * Correction Factor: 30 mg/dL/unit * Nutritional / Prandial insulin per carb ratio of 1 unit per 10 grams CHO consumed
--- NOTE | 2024-12-12 13:05 | Surgery Progress Note ---
Date of Service December 12, 2024 Assessment & Plan (1) Diverticulitis of large intestine with complication: Plan: patient has failed non op managment with complicated disease, plan with be for resection and likely colostomy, possible anastomosis on sunday, to allow for the abx to allow for area to cool down a bit, no role for emergent surgical intervention today, can be on liquids. Admission and Anticipated Discharge Date Admission Date: December 11, 2024 Subjective Patient is a 64 year old male with a history of complicated and recurrent diverticulitis, now status post drain placement with feculent fistula to skin. He has pain at drain site and his hips. He has had a colonoscopy in June of this year in which he had a transverse colon polyp removed and sigmoid colon diverticular disease with erythema was seen. He has not had abdominal surgeries. Review of Systems Review of Systems: All systems reviewed & are unremarkable except as noted in HPI & below Physical Exam Constitutional: WD/WN, vitals as above Eyes: PERRL, conjunctivae normal, anicteric sclerae ENMT: external ear and nose normal, oropharynx normal Neck: trachea midline, no thyromegaly Respiratory: normal effort Cardiovascular: RRR, no murmur, no edema Gastrointestinal (Abdomen): soft, tender to palpation in llq without peritoneal signs, some erythema at skin level where drain is with feculent material in drain Results & Data Vital Signs (Past 12 Hours) Vital Signs Temp Pulse Resp BP Pulse Ox O2 Del Method 12/12/24 08:23 36.7 C 93 H 18 136/76 98 Room Air PG Care Time/CCT Total # of Minutes Spent Total Time Spent with Patient: Total time spent is greater than 50% in coordination of care (as documented) at patient's floor/unit and/or counseling patient: Coding [place] [address] SUB INP/OBS CARE 2/35MIN Patient Type Established History Problem Focused Exam Expanded Problem Focused Medical Decision Making Moderate Complexity Diagnoses Diverticulitis of large intestine with complication K57.32
--- NOTE | 2024-12-12 16:08 | Hospitalist Progress Note ---
"Date of Service December 12, 2024 Assessment & Plan (1) Diverticulitis of large intestine with complication: (2) Diabetes 1.5, managed as type 1: Plan Lorenzo is a 64-year-old man with past medical history of complicated diverticulitis with LLQ IR drain placement x 2 for diverticular abscess, T2DM, dyslipidemia, CAD, OA, tobacco dependence, GERD, and severe protein calorie malnutrition. He returned to the ED with severe abdominal pain x 6 days and has not been out of bed during that timeframe as well. He was admitted for management of his complicated diverticulitis. #Complicated diverticulitis, drain in place -longstanding history of diverticulitis since August of this year. Multiple hospitalizations since then for the same. Had an IR drain placed at [facility] previously then had another IR drain placed at [facility] while admitted here a few weeks ago. 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 Tylenol first-line, Toradol second-line, hydromorphone third-line Surgery following. Antibiotics for now to optimize, anticipate operative intervention 12/15. May have clears in the meantime #Hypokalemia Trend daily, replete as needed Magnesium repleted, trend periodically #Elevated BP Normalized with pain control #Anemia | thrombocytosis - B12 and folate WNL last admission Ferritin is elevated however this is likely as an acute phase reaction. TSAT not able to be performed however serum iron is below the limits of detection. He would benefit from Venofer however given active significant infection without source control recommend optimization with blood as needed to transfusion threshold of 7, or 8 if signs of endorgan ischemia, at this time and treated with Venofer has had adequate control of ongoing infection. #DMT1.5 Home regimen includes Lantus 30U AM, lispro, metformin. Last A1c 15.8% in August 2024 - Hold home regimen -Continue basal bolus SSI while admitted Pharmacy glycemic management following #CADcontinue atorvastatin, hold aspirin in case of surgical intervention #Chronic paincontinue home baclofen. Hold oxycodone with pain control regimen as outlined above VTE PPx: Increased VTE risk. No surgical intervention anticipated until 12/15. Will place on heparin subcu for now, hold if any signs of bleeding or has clinical deterioration requiring accelerated surgical intervention Admission and Anticipated Discharge Date Admission Date: December 11, 2024 Subjective Seen the bedside this morning. He reports he continues to have pain in his abdomen which improves a little bit with pain medicine, but also in his left hip and chronic pain in his left knee. Has had improvement with hydromorphone. He was seen by surgery. Has failed nonoperative management. Is planned for r esection and likely colostomy with anastomosis, possibly Sunday. Recommended for antibiotics at this time to optimize as he does not appear to need emergent surgical intervention. Okay for liquids. Discussed with patient, placed on clears Patient reports he has significant improvement at home with his pain with NSAIDs. No bleeding. Physical Exam Physical Exam: General: A&Ox3. NAD. Cooperative. HEENT: Atraumatic, normocephalic. Vision and hearing grossly intact Pulm: CTAB A&P. -wheezes, -rales, -rhonchi. Symmetrical chest rise. No increase in work of breathing. No respiratory distress. Cardiac: RRR, -mrg. Radial pulses intact and symmetrical. Abdominal: Abdomen distended, soft and without involuntary guarding. Drains in place with feculent material both in drain and surrounding. Mild tenderness on palpation without radiating pain. Extremities: Endorses tenderness overlying his left hip and knee although these are nontender to palpation Results & Data Results & Data Vital Signs (Past 12 Hours) Vital Signs Temp Pulse Resp BP Pulse Ox O2 Del Method 12/12/24 08:23 36.7 C 93 H 18 136/76 98 Room Air PG Care Time/CCT Total # of Minutes Spent Total Time Spent with Patient: Total time spent is greater than 50% in coordination of care (as documented) at patient's floor/unit and/or counseling patient: Coding Level of Care Code 88322 SUB INP/OBS CARE 3/50MIN Diagnoses Diverticulitis of large intestine with complication K57.32 Diabetes 1.5, managed as type 1 E13.9"
[2024-12-12] MEDS: LANTUS PER UNIT CHARGE SC SCH (21:48)
[2024-12-12] MEDS: PIPERACILLIN/TAZOBACTAM 4.5 GM/100 ML BAG IV SCH (22:17)
[2024-12-12] MEDS: HEPARIN SOD 5,000 UNIT/0.5 ML VIAL SQ SCH (22:19)
--- NOTE | 2024-12-13 05:27 | Surgery Progress Note ---
Date of Service December 13, 2024 Assessment & Plan (1) Diverticulitis of large intestine with complication: Plan: Patient has been admitted on the hospitalist service. Surgical recommendations are as follows: Provide analgesics as needed Maintain patient on clear liquid diet for the present time Maintain hydration measures with intravenous fluids Continue antibiotics in form of Zosyn Patient is tentatively scheduled for surgical intervention by Dr. Gomez on 12/15/2024 Will make sure patient is n.p.o. after midnight the evening before his surgery The patient is receiving subcutaneous heparin for DVT prevention and will place this on hold the evening before his surgery Additional recommendations to be forthcoming based on operative findings and his postoperative recovery thereafter Admission and Anticipated Discharge Date Admission Date: December 11, 2024 Supervising Physician Co-Signing Physician Notes I have seen and examined this pt this am and I agree with this plan Subjective Patient is resting comfortably in bed. He notes some continued abdominal pain which is greatest in the left lower quadrant. He denies any nausea or vomiting. He is tolerating clear liquids without any exacerbating/worsening abdominal pa in or nausea or vomiting. I discussed with the nurse attending the patient and he has not had any fevers. Physical Exam Gastrointestinal (Abdomen): Abdomen is soft without distention. There is no rebound tenderness or guarding. Patient did have tenderness to palpation which appear to be greatest in the left lower quadrant. Results & Data Vital Signs (Past 12 Hours) Vital Signs Temp Pulse Resp BP Pulse Ox O2 Del Method 12/12/24 23:54 37.2 C 80 18 122/71 98 Room Air 12/12/24 19:15 Room Air PG Care Time/CCT Total # of Minutes Spent Total Time Spent with Patient: Total time spent is greater than 50% in coordination of care (as documented) at patient's floor/unit and/or counseling patient: Coding Level of Care Code 41810 SUB INP/OBS CARE 04/12MIN Diagnoses Diverticulitis of large intestine with complication K57.32
[2024-12-13 06:34] LABS: Hematocrit (blood only) 28.1 % (42.0-52.0); Hemoglobin 8.8 g/dl (14.0-18.0); Immature Granulocytes # (auto) 0.04 K/uL (0.01-0.20); Immature Granulocytes % (auto) 0.6 %; Mean Corpuscular Hemoglobin 26.3 pg (25.0-34.0); Mean Corpuscular Volume 83.9 fL (80.0-100.0); Platelet Count 382 K/uL (130-400); RDW Standard Deviation 43.4 fL (36.4-46.3); Red Blood Count 3.35 M/uL (4.70-6.10); White Blood Count 6.86 K/ul (4.8-10.8)
[2024-12-13 06:51] LABS: Anion Gap 10.0 (3-11); Blood Urea Nitrogen 7.0 mg/dl (6-23); Calcium 8.4 mg/dl (8.6-10.3); Carbon Dioxide 23.0 mmol/L (21-32); Chloride 105.0 mmol/L (98-107); Creatinine Clr Calc Pharmacy 139.7 ml/min; Glucose 92.0 mg/dl (70-99(Fasting)); Magnesium 1.5 mg/dl (1.7-2.4); Potassium 3.1 mmol/L (3.5-5.1); Sodium 138.0 mmol/L (136-145)
[2024-12-13] MEDS: LACTATED RINGER'S 1,000 ML IV SCH (08:29)
[2024-12-13] MEDS: MAGNESIUM SULFATE / D5W 1 GM/100 ML BAG IV SCH (08:30)
[2024-12-13] MEDS: POTASSIUM CHLORIDE / WTR 10 MEQ/100 ML PLCT IV SCH (08:37)
--- NOTE | 2024-12-13 10:24 | Hospitalist Progress Note ---
"Date of Service December 13, 2024 Assessment & Plan (1) Diverticulitis of large intestine with complication: (2) Diabetes 1.5, managed as type 1: Plan Lorenzo is a 64-year-old man with past medical history of complicated diverticulitis with LLQ IR drain placement x 2 for diverticular abscess, T2DM, dyslipidemia, CAD, OA, tobacco dependence, GERD, and severe protein calorie malnutrition. He returned to the ED with severe abdominal pain x 6 days and has not been out of bed during that timeframe as well. He was admitted for management of his complicated diverticulitis. #Complicated diverticulitis, drain in place -longstanding history of diverticulitis since August of this year. Multiple hospitalizations since then for the same. Had an IR drain placed at [facility] previously then had another IR drain placed at [facility] while admitted here a few weeks ago. 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 Tylenol Toradol hydromorphone Hold heparin morning of 12/15, anticipate colorectal surgical intervention at that time Continue Zosyn - Discussed with nursing staff, will replace drain dressing and give each drain independent drain sponge Make strict n.p.o. at midnight on Sunday #Hypokalemia, hypomagnesemia Magnesium 2 g IV ordered, potassium 4 riders ordered on 12/13 Trend magnesium, potassium Continue LR IVF #Elevated BP Normalized with pain control #Anemia | thrombocytosis - B12 and folate WNL last admission Ferritin is elevated however this is likely as an acute phase reaction. TSAT not able to be performed however serum iron is below the limits of detection. He would benefit from Venofer however given active significant infection without source control recommend optimization with blood as needed to transfusion threshold of 7, or 8 if signs of endorgan ischemia, at this time and treated with Venofer once he has had adequate control of his complicated diverticulitis. #DMT1.5 Home regimen includes Lantus 30U AM, lispro, metformin. Last A1c 15.8% in August 2024 - Hold home regimen -Continue basal bolus SSI while admitted Pharmacy glycemic management following #CADcontinue atorvastatin, aspirin held #Chronic paincontinue home baclofen. Hold oxycodone with pain control regimen as outlined above VTE PPx: Increased VTE risk. No surgical intervention anticipated until 12/15. Will place on heparin subcu for now, hold if any signs of bleeding or has clinical deterioration requiring accelerated surgical intervention Admission and Anticipated Discharge Date Admission Date: December 11, 2024 Subjective Seen at bedside this morning. He is sleeping comfortably at time of assessment. Awakens easily, slightly startled at time of awakening. Did apologize patient to this, he remains easily after about a minute. He reports he continues to have intermittent spasms in his back and leg which seem like they improve mostly with baclofen. He notes that the pain medications ordered do seem to help a little bit, but keep this as barely tolerable and do not resolve the pain. Reports his abdomen is not tender, although does feel distended. He continues with output from his drains. No fevers chills or sweats overnight. Physical Exam Physical Exam: General: A&Ox3. NAD. Cooperative. Sleeping at time of visit, awakens and reorients easily HEENT: Atraumatic, normocephalic. Vision and hearing grossly intact Pulm: Symmetrical chest rise. No increase in work of breathing. No respiratory distress. Cardiac: RRR, -mrg. Radial pulses intact and symmetrical. Abdominal: Abdomen distended, soft Left lower quadrant drains remain in place with feculent material both in drain and surrounding. Nontender to palpation and no rebound/rigidity/guarding today Extremities: Endorses tenderness overlying his left hip and knee although these are nontender to palpation Results & Data Results & Data Vital Signs (Past 12 Hours) Vital Signs Temp Pulse Resp BP Pulse Ox O2 Del Method 12/13/24 08:04 78 18 152/78 H 97 Room Air 12/12/24 23:54 37.2 C 80 18 122/71 98 Room Air PG Care Time/CCT Total # of Minutes Spent Total Time Spent with Patient: Total time spent is greater than 50% in coordination of care (as documented) at patient's floor/unit and/or counseling patient: Coding Level of Care Code 57759 SUB INP/OBS CARE 3/50MIN Diagnoses Diverticulitis of large intestine with complication K57.32 Diabetes 1.5, managed as type 1 E13.9"
--- NOTE | 2024-12-14 04:59 | Surgery Progress Note ---
Date of Service December 14, 2024 Assessment & Plan (1) Diverticulitis of large intestine with complication: Plan: Patient has been admitted on the hospitalist service. Surgical recommendations are as follows: Continue analgesics as needed Maintain patient on clear liquid diet for the present time Maintain hydration measures with intravenous fluids Continue antibiotics in form of Zosyn Patient is tentatively scheduled for surgical intervention by Dr. Gomez on 12/15/2024he has accordingly been made n.p.o. after midnight tonight The patient is receiving subcutaneous heparin for DVT prevention and the medical service has appropriately placed this on hold in anticipation of the surgery Check a.m. labs and available Additional recommendations to be forthcoming based on operative findings and his postoperative recovery thereafter Admission and Anticipated Discharge Date Admission Date: December 11, 2024 Supervising Physician Co-Signing Physician Notes I have seen this pt this am Planned for OR with Dr Gomez tomorrow NPO after MN and hold any chemical DVT ppx tomorrow am Subjective Patient is currently resting comfortably in bed. He notes some minor pain in the left lower quadrant of his abdomen at this time. He denies any fevers, shakes, or chills. He denies any nausea or vomiting. I discussed with the nurse attending the patient and she notes that the patient has been afebrile throughout the evening. She also notes that yesterday he ambulated in the hallway with some assistance. No acute issues are reported at this time Physical Exam Gastrointestinal (Abdomen): Abdomen is soft without rigidity, rebound tenderness, or guarding. The patient has some slight pain to palpation in the left lower quadrant. An IR drain is in place draining feculent appearing material Results & Data Vital Signs (Past 12 Hours) Vital Signs Temp Pulse Resp BP Pulse Ox O2 Del Method 12/13/24 23:36 36.8 C 78 17 108/69 98 Room Air 12/13/24 22:30 Room Air PG Care Time/CCT Total # of Minutes Spent Total Time Spent with Patient: Total time spent is greater than 50% in coordination of care (as documented) at patient's floor/unit and/or counseling patient: Coding Level of Care Code 77403 SUB INP/OBS CARE 04/12MIN Diagnoses Diverticulitis of large intestine with complication K57.32
[2024-12-14 07:30] LABS: Hematocrit (blood only) 29.2 % (42.0-52.0); Hemoglobin 8.9 g/dl (14.0-18.0); Immature Granulocytes # (auto) 0.05 K/uL (0.01-0.20); Immature Granulocytes % (auto) 1.1 %; Mean Corpuscular Hemoglobin 25.8 pg (25.0-34.0); Mean Corpuscular Volume 84.6 fL (80.0-100.0); Platelet Count 367 K/uL (130-400); RDW Standard Deviation 43.3 fL (36.4-46.3); Red Blood Count 3.45 M/uL (4.70-6.10); White Blood Count 4.47 K/ul (4.8-10.8)
[2024-12-14 07:52] LABS: Anion Gap 8.0 (3-11); Blood Urea Nitrogen 5.0 mg/dl (6-23); Calcium 8.7 mg/dl (8.6-10.3); Carbon Dioxide 25.0 mmol/L (21-32); Chloride 104.0 mmol/L (98-107); Creatinine Clr Calc Pharmacy 120.3 ml/min; Glucose 119.0 mg/dl (70-99(Fasting)); Magnesium 1.7 mg/dl (1.7-2.4); Potassium 3.6 mmol/L (3.5-5.1); Sodium 137.0 mmol/L (136-145)
--- NOTE | 2024-12-14 15:01 | Hospitalist Progress Note ---
"Date of Service December 14, 2024 Assessment & Plan (1) Diverticulitis of large intestine with complication: (2) Diabetes 1.5, managed as type 1: Plan Lorenzo is a 64-year-old man with past medical history of complicated diverticulitis with LLQ IR drain placement x 2 for diverticular abscess, T2DM, dyslipidemia, CAD, OA, tobacco dependence, GERD, and severe protein calorie malnutrition. He returned to the ED with severe abdominal pain x 6 days and has not been out of bed during that timeframe as well. He was admitted for management of his complicated diverticulitis. #Complicated diverticulitis, drain in place -longstanding history of diverticulitis since August of this year. Multiple hospitalizations since then for the same. Had an IR drain placed at [facility] previously then had another IR drain placed at [facility] while admitted here a few weeks ago. 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 Tylenol Toradol hydromorphone for multimodal pain control, baclofen on-call for chronic back pain and spasms It is fitted for colorectal surgery on 12/15. Heparin has had a future hold placed for that morning, n.p.o. at midnight order has been placed Continue Zosyn Hemodynamically stable 12/14 #Hypokalemia, hypomagnesemia Improved with repletion. Potassium and magnesium both low normal, additional oral supplementation given 12/14 to optimize BMP daily, trend magnesium periodically #Elevated BP Normalized with pain control #Anemia | thrombocytosis - B12 and folate WNL last admission Ferritin is elevated however this is likely as an acute phase reaction. TSAT not able to be performed however serum iron is below the limits of detection. He would benefit from Venofer however given active significant infection without source control recommend optimization with blood as needed to transfusion threshold of 7, or 8 if signs of endorgan ischemia, at this time and treated with Venofer once he has had adequate control of his complicated diverticulitis. Hemoglobin uptrending 12/14, no clinical bleeding #DMT1.5 Home regimen includes Lantus 30U AM, lispro, metformin. Last A1c 15.8% in August 2024 - Hold home regimen - SSI. Basal insulin held Pharmacy glycemic management following. Adequate control 12/14. #CADcontinue atorvastatin, aspirin held #Chronic paincontinue home baclofen. Hold oxycodone with pain control regimen as outlined above VTE PPx: Continue subcu heparin, hold on 12/15 for surgical intervention of his complicated diverticular and fistular disease Admission and Anticipated Discharge Date Admission Date: December 11, 2024 Subjective Remains seen at the bedside today. He endorses he continues to have intermittent pain in his hips and some spasms to his left hip and left knee but was up and able to walk in the room earlier per nursing and overall mood and disposition seem greatly improved than prior. He does note that all the medicines together do help his pain overall, and that he was a little sleepy last night which he recognizes may have been a medication effect and there stands that any medication up titration would have risk and also is okay with his current treatment plan at this time. He did have some frustrations overnight getting up today from the [place] various updates related to this, expresses an appreciation of his current care providers and acknowledges that he could sometimes be rough with staff nurses but appreciates care. He has not had fevers chills or sweats overnight. No pain in his abdomen at time of assessment. Physical Exam Physical Exam: General: A&Ox3. NAD. Cooperative. HEENT: Atraumatic, normocephalic. Vision and hearing grossly intact Pulm: Symmetrical chest rise. No increase in work of breathing. No respiratory distress. Cardiac: RRR, -mrg. Radial pulses intact and symmetrical. Abdominal: Abdomen distended, soft Left lower quadrant drains remain in place with feculent material both in drain and surrounding. Nontender to palpation and no rebound/rigidity/guarding today Results & Data Results & Data Vital Signs (Past 12 Hours) Vital Signs Temp Pulse Resp BP Pulse Ox O2 Del Method 12/14/24 07:26 36.4 C L 69 18 115/73 98 Room Air PG Care Time/CCT Total # of Minutes Spent Total Time Spent with Patient: Total time spent is greater than 50% in coordination of care (as documented) at patient's floor/unit and/or counseling patient: Coding Level of Care Code 07823 SUB INP/OBS CARE MIN Diagnoses Diverticulitis of large intestine with complication K57.32 Diabetes 1.5, managed as type 1 E13.9"
[2024-12-14] MEDS: POTASSIUM CHLORIDE CRTAB 20 MEQ TABCR PO STA (15:32)
[2024-12-14] MEDS: MAGNESIUM OXIDE 400 MG TAB PO SCH (16:44)
--- NOTE | 2024-12-14 16:55 | Anesthesiology Consultation ---
Date of Service December 14, 2024 Assessment & Plan Chart Review Chart Review: Acceptable Risk for Surgery and Patient NOT seen in Pre Admission Testing Consults Requested none ASA ASA3 Proposed Anesthesia Anesthesia Type: General History Surgery Operation Date: 12/15/24 07:00 Proposed Procedures p Laparoscopic, Possible Open, Garret's Procedure, Possible Ostomy Creation - Ji Gomez MD Height/Weight Height: 5 ft 8 in Weight: 84.7 kg Allergies Allergy/AdvReac Type Severity Reaction Status Date / Time cyclobenzaprine AdvReac Severe Nightmares Verified 12/11/24 16:26 [From Flexeril] Medications Home Medications Medication Instructions Recorded Confirmed Last Taken Wheeled Walker #1 ea 05/06/24 11/28/24 Unknown insulin syringe,safety needle 0.5 #100 ea 08/29/24 11/28/24 Unknown mL 29 gauge x 1/2" (BD SafetyGlide Insulin Syringe) needle (disp) 30 gauge 30 gauge x #100 ea 08/29/24 11/28/24 Unknown 1" blood sugar diagnostic (OneTouch #100 ea 09/02/24 11/28/24 Unknown Ultra Test strips) blood-glucose meter (OneTouch #1 ea 09/02/24 11/28/24 Unknown Ultra2 Meter) lancets 30 gauge (OneTouch #100 ea 09/02/24 11/28/24 Unknown UltraSoft 2 Lancet) blood-glucose sensor (FreeStyle #1 ea 09/03/24 11/28/24 Unknown Sebastián 3 Plus Sensor device) blood-glucose,central supply tech,cont #1 ea 09/03/24 11/28/24 Unknown (FreeStyle Sebastián 3 [place]) baclofen 10 mg tablet 10 mg PO TID PRN muscle spasm #90 10/15/24 12/11/24 Unknown tabs insulin lispro 100 unit/mL 4 unit (0.04 mL) subcut ACHS #15 mL 10/15/24 12/11/24 Unknown subcutaneous solution metformin 1,000 mg tablet 1,000 mg PO BID #180 tabs 10/17/24 12/11/24 12/10/24 ciprofloxacin HCl 500 mg tablet 500 mg PO BID 11/23/24 12/11/24 12/10/24 insulin glargine 100 unit/mL 30 unit SC QAM 11/23/24 12/11/24 12/10/24 subcutaneous solution (Lantus U-100 Insulin) metronidazole 500 mg tablet 500 mg PO TID 11/23/24 12/11/24 12/10/24 oxycodone 10 mg tablet 10 mg PO Q6H PRN pain #120 tabs 11/28/24 12/11/24 12/11/24 12:00 Active Medications Generic Name Dose Route Start Last Admin Trade Name Freq PRN Reason Stop Dose Admin Baclofen 10 mg 12/11/24 18:30 12/14/24 14:36 Baclofen 10 Mg Tab PO 01/10/25 18:29 10 mg TID PRN Administration muscle spasm Heparin Sodium (Porcine) 5,000 units 12/12/24 22:00 12/14/24 15:13 Heparin Sod 5,000 Unit/0.5 Ml Vial SQ 01/11/25 21:59 5,000 units Q8 JOSE JUAN Administration Hydromorphone HCl 1 mg 12/12/24 08:47 12/14/24 10:01 Hydromorphone Inj 1 Mg/Ml Syringe IV 12/26/24 08:46 1 mg Q3H PRN Administration Severe Pain (7,8,9,10) on NRS Acetaminophen 1,000 mg in 100 mls @ 400 mls/hr 12/11/24 17:46 12/12/24 09:40 Ofirmev IV 12/14/24 17:45 Infused Q8H PRN Infusion Fever/Mild Pain (Pain 1,2,3) Piperacillin Sod/Tazobactam Sod 4.5 gm in 100 mls @ 25 mls/hr 12/12/24 23:00 12/14/24 14:36 Zosyn IV 12/22/24 22:59 25 mls/hr Q8H JOSE JUAN Administration Protocol Lactated Ringer's 1,000 mls @ 80 mls/hr 12/13/24 07:30 12/14/24 15:31 Lr IV 12/16/24 07:29 80 mls/hr .[id number] JOSE JUAN Administration Insulin Aspart 0 units 12/12/24 16:30 12/14/24 12:31 Insulin Aspart Per Unit Charge SC 01/11/25 16:29 Not Given ACHS [facility] Insulin Glargine 0 units 12/12/24 21:00 12/13/24 22:10 Lantus Per Unit Charge SC 01/11/25 20:59 Not Given HS JOSE JUAN Protocol Ketorolac Tromethamine 10 mg 12/12/24 09:25 12/14/24 15:13 Ketorolac Tromethamine 15 Mg/Ml Vial IV 12/17/24 09:24 10 mg Q6H PRN Administration Pain, second line Magnesium Oxide 400 mg 12/14/24 15:15 12/14/24 16:44 Magnesium Oxide 400 Mg Tab PO 01/13/25 15:14 400 mg QAM JOSE JUAN Administration Past Medical History Medical History Acute metabolic encephalopathy Diverticulitis of intestine with perforation and abscess Uncontrolled diabetes mellitus with ketoacidosis without coma Pseudohyponatremia Sacral fracture DKA (diabetic ketoacidosis) GERD (gastroesophageal reflux disease) controlled, stable per pt Chronic recurrent sinusitis per hx, nothing recent Hx of fracture (12/2023) sacral, due to fall Hx of fall (12/2023) broke tailbone- no surgery/ given baclofen Osteoarthritis of knee Tinnitus, bilateral Diabetes mellitus, type 2 NIDDM Coronary artery disease no stents; last cath 2024 - 40-50% LAD, 50% L circ, RCA without disease; [facility] [place] Cardiology - Dr Rodriguez Dyslipidemia Asthma allergy induced - prn inhaler Hypertension controlled, stable per pt obese ASCVD Ao/CAD + tobacco Exercise / Class Metabolic Activity III < 4 Walking/Shop/Light housework Past Family History Family History Father Myocardial infarction Quadruple bypass Brother Myocardial infarction Lung cancer Mother Diabetes PAD (peripheral artery disease) Denies family history of Ovarian cancer Prostate cancer Breast cancer Colorectal cancer Past Surgical History Surgical History [facility] told 2 minor blockages and treating with meds- follows with te (05/13) S/p bilateral myringotomy with tube placement as a child, multiple times History of back surgery (2007) 2008, Lumbar - laser - herniated disc Past Anesthesia History No Hx of Anesthesia Complications and No Family Hx of Anesthesia Complications History of PONV No Hx of PONV and No Hx of Motion Sickness Social History Smoking Status: Current some day smoker Smoking cigarettes per day: pt "goes out to vehicle when stressed" and have 1-2. Do You Dip or Chew Tobacco: No Hx Alcohol Use: Yes Alcohol type: hard liquor alcohol intake frequency: holidays/special occasions only Hx Substance Use: Yes substance use type: marijuana Last Used Substance: Unknown Last Used Substance Other:: haven't used in a long time Physical Exam Vital Signs Last Vital Signs Temp 36.4 C L 12/14/24 15:45 Pulse 67 12/14/24 15:45 Resp 18 12/14/24 15:45 BP 117/64 12/14/24 15:45 Pulse Ox 95 12/14/24 15:45 O2 Del Method Room Air 12/14/24 15:45 Testing Laboratory Results 12/14/24 07:09 12/14/24 07:09 Hemoglobin A1c 8.4 % (4.5-5.6) H 12/12/24 07:17 Urine Color Yellow 12/12/24 00:12 Urine Appearance Clear (Clear) 12/12/24 00:12 Urine pH 6.0 (4.5-7.5) 12/12/24 00:12 Ur Specific [place] 1.034 (1.000-1.030) H 12/12/24 00:12 Urine Protein Trace (Negative) H 12/12/24 00:12 Urine Glucose (UA) Negative (Negative) 12/12/24 00:12 Urine Ketones 1+ (Negative) H 12/12/24 00:12 Urine Nitrite Negative (Negative) 12/12/24 00:12 Ur Leukocyte Esterase Trace (Negative) H 12/12/24 00:12 Urine WBC (Auto) 0-5 /hpf (0-5) 12/12/24 00:12 Urine RBC (Auto) 11-20 /hpf (0-2) H 12/12/24 00:12 U Hyaline Cast (Auto) 3-5 /lpf (0-2) H 12/12/24 00:12 U Epithel Cells (Auto) 0-2 /hpf (0-2) 12/12/24 00:12 Urine Bacteria (Auto) None Seen (None Seen) 12/12/24 00:12 12/14/24 12/14/24 12/14/24 16:27 11:28 07:47 POC Glucose 103 H 87 142 H Electrocardiogram Date: 11/23/24 Findings: + ST @ (@ 104;low voltage QRS) Chest X-Ray Date: 11/23/24 Findings: + NAD Cardiac Catheterization Date: 11/22/23 Findings: + RCA (LI's), + LMA (patent), + LCX (mid 40-50%) and + pertinent finding (EF-60%) Intervention: + none Location: LAD-40-50%
[2024-12-15] MEDS: HYDROmorphone INJ 0.5 MG/0.5 ML SYR IV PRN (05:31)
[2024-12-15 06:45] LABS: Hematocrit (blood only) 26.4 % (42.0-52.0); Hemoglobin 8.2 g/dl (14.0-18.0); Immature Granulocytes # (auto) 0.02 K/uL (0.01-0.20); Immature Granulocytes % (auto) 0.3 %; Mean Corpuscular Hemoglobin 26.3 pg (25.0-34.0); Mean Corpuscular Volume 84.6 fL (80.0-100.0); Platelet Count 371 K/uL (130-400); RDW Standard Deviation 42.9 fL (36.4-46.3); Red Blood Count 3.12 M/uL (4.70-6.10); White Blood Count 7.48 K/ul (4.8-10.8)
[2024-12-15] MEDS ORDERED: Nursing to Pharmacy Communication SCH (07:00)
[2024-12-15 07:37] LABS: Anion Gap 8.0 (3-11); Blood Urea Nitrogen 3.0 mg/dl (6-23); Calcium 8.4 mg/dl (8.6-10.3); Carbon Dioxide 25.0 mmol/L (21-32); Chloride 109.0 mmol/L (98-107); Creatinine Clr Calc Pharmacy 118.5 ml/min; Glucose 123.0 mg/dl (70-99(Fasting)); Potassium 3.7 mmol/L (3.5-5.1); Sodium 142.0 mmol/L (136-145)
--- NOTE | 2024-12-15 11:38 | Urology Consultation ---
Date of Consultation December 15, 2024 Assessment & Plan (1) Diverticulitis of large intestine with complication: Plan Patient is scheduled for OR today with Dr. Gomez for Laparoscopic, Possible Open, Garret's Procedure, Possible Ostomy and have requested bilateral localizing stents to be placed beforehand by urology. Discussed bilateral ureteral stent placement with patient and he is agreeable. Risks/benefits to be reviewed with patient by Dr. Tsai. Plan for bilateral ureteral stent vs catheter placement with Dr. Tsai. Attending note: Patient independently assessed, examined, interviewed, and evaluated. Agree with note as above. Patient's vitals and labs were all reviewed. Pertinent values in the HPI and plan section. Imaging was reviewed interpreted by myself. Agree with read. Vitals were reviewed. Discussed findings extensively with patient. Reviewed with colorectal team and nurse practitioner as well as consulting physicians/team. Patient's complicated medical and surgical history was reviewed and summarized above. Patient's surgical, medical, social, and family history were all reviewed with pertinent values as above. Discussed patient's current diagnosis as well as concerns and issues. Reviewed different options moving forward. Discussed potential risks and benefits as well as possible options and concerns. Reviewed potential surgical options and interventions. Discussed potential issues and concerns related to intervention. Risk and benefits were discussed extensively with patient and any available family. Discussed potential risks related to anesthesia. Discussed risks of bleeding infection and injury. Answered all patient's questions. Risks and benefits discussed at length for procedure. These include bleeding, infection, injury to surrounding tissues or organs, and risks associated with anesthesia. Patient states understanding and agrees to proceed. Will sign consent and proceed. Will plan to move forward with catheter/stent placement for ureteral identification during complex pelvic surgery. All questions answered. History of Present Illness Attending Physician: Delmer Nicolas MD History of Present Illness 64 year old male who is currently admitted with complicated diverticulitis. Patient is going to the OR today with Colorectal surgery for Laparoscopic, Possible Open, Garret's Procedure, Possible Ostomy Creation and they have requested bilateral localizing stents to be placed beforehand by urology. Pt seen at bedside today. Awake and resting in bed. NAD. Has been NPO. Afebrile and hemodynamically stable. Labs show no leukocytosis and creatinine 0.65. He is on Zosyn. CT abd pelvis (12/11/24) showed the kidneys without hydronephrosis or stones. Allergies Allergy/AdvReac Type Severity Reaction Status Date / Time cyclobenzaprine AdvReac Severe Nightmares Verified 12/11/24 16:26 [From Flexeril] Home Medications Medication Instructions Recorded Confirmed Type Wheeled Walker #1 ea 05/06/24 11/28/24 Rx insulin syringe,safety needle 0.5 #100 ea 08/29/24 11/28/24 Rx mL 29 gauge x 1/2" (BD SafetyGlide Insulin Syringe) needle (disp) 30 gauge 30 gauge x #100 ea 08/29/24 11/28/24 Rx 1" blood sugar diagnostic (OneTouch #100 ea 09/02/24 11/28/24 Rx Ultra Test strips) blood-glucose meter (OneTouch #1 09/02/24 11/28/24 Rx Ultra2 Meter) lancets 30 gauge (OneTouch #100 ea 09/02/24 11/28/24 Rx UltraSoft 2 Lancet) blood-glucose sensor (FreeStyle #1 ea 09/03/24 11/28/24 Rx Sebastián 3 Plus Sensor device) blood-glucose,gm video,cont #1 ea 09/03/24 11/28/24 Rx (FreeStyle Sebastián 3 [place]) baclofen 10 mg tablet 10 mg PO TID PRN muscle spasm #90 10/15/24 12/11/24 Rx tabs insulin lispro 100 unit/mL 4 unit (0.04 mL) subcut ACHS #15 mL 10/15/24 12/11/24 Rx subcutaneous solution metformin 1,000 mg tablet 1,000 mg PO BID #180 tabs 10/17/24 12/11/24 Rx ciprofloxacin HCl 500 mg tablet 500 mg PO BID 11/23/24 12/11/24 History insulin glargine 100 unit/mL 30 unit SC QAM 11/23/24 12/11/24 History subcutaneous solution (Lantus U-100 Insulin) metronidazole 500 mg tablet 500 mg PO TID 11/23/24 12/11/24 History oxycodone 10 mg tablet 10 mg PO Q6H PRN pain #120 tabs 11/28/24 12/11/24 Rx Patient History Medical History Acute metabolic encephalopathy Diverticulitis of intestine with perforation and abscess Uncontrolled diabetes mellitus with ketoacidosis without coma Pseudohyponatremia Sacral fracture DKA (diabetic ketoacidosis) GERD (gastroesophageal reflux disease) controlled, stable per pt Chronic recurrent sinusitis per hx, nothing recent Hx of fracture (12/2023) sacral, due to fall Hx of fall (12/2023) broke tailbone- no surgery/ given baclofen Osteoarthritis of knee Tinnitus, bilateral Diabetes mellitus, type 2 NIDDM Coronary artery disease no stents; last cath 2024 - 40-50% LAD, 50% L circ, RCA without disease[place] [facility] [place] Dr Rodriguez Dyslipidemia Asthma allergy induced - prn inhaler Hypertension controlled, stable per pt Surgical History History of cardiac catheterization (12/2023) [facility] [place] -- no stents- told 2 minor blockages and treating with meds- follows with te (05/13) S/p bilateral myringotomy with tube placement as a child, multiple times History of back surgery (2007) 2007, Lumbar - laser - herniated disc Family History Father Myocardial infarction Quadruple bypass Brother Myocardial infarction Lung cancer Mother Diabetes PAD (peripheral artery disease) Denies family history of Ovarian cancer Prostate cancer Breast cancer Colorectal cancer Social History Smoking Status: Current some day smoker Tobacco Type: Cigarettes Age Started Using Tobacco: 13; packs per day: 1; Cigarettes Per Day: pt "goes out to vehicle when stressed" and have 1-2.; Second Hand Exposure: No; Do You Dip or Chew Tobacco: No; Hx Alcohol Use: Yes Alcohol type: hard liquor Alcohol Intake Frequency: 2-3 x/Week Hx Substance Use: Yes Last Used Substance: Unknown Last Used Substance Other:: haven't used in a long time Preferred Language: Maori Communication Ability: Effective Visual Impairment: No Limitations Hearing Ability: Normal Mohs Surgeon Required: No Beliefs That Will Affect Care: None marital status: Current Living Situation: Alone Current Living Situation Comment: [facility] current 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 Direct sunlight is very irrita) Assistive Devices: Walker Review of Systems Review of Systems: All systems reviewed & are unremarkable except as noted in HPI & below Physical Exam Constitutional: no acute distress Respiratory: no respiratory distress and no labored breathing Skin: No visible rashes or lesions to exposed skin areas Neurologic: moves all extremities and awake Psychiatric: A+Ox3, euthymic affect Results & Data Vital Signs (Past 12 Hours) Vital Signs Temp Pulse Resp BP Pulse Ox O2 Del Method 12/15/24 08:27 36.7 C 67 16 143/87 H 94 Room Air 12/15/24 05:08 37.1 C 83 18 155/75 H 99 Room Air PG Care Time/CCT Total # of Minutes Spent Total Time Spent with Patient: Total time spent is greater than 50% in coordination of care (as documented) at patient's floor/unit and/or counseling patient: Coding Level of Care Code 38956 INT INP/OBS CARE 3/75MIN Diagnoses Diverticulitis of large intestine with complication K57.32
[2024-12-15] MEDS: INSULIN ASPART PER UNIT CHARGE SC SCH (11:46)
--- NOTE | 2024-12-15 12:22 | Hospitalist Progress Note ---
"Date of Service December 15, 2024 Assessment & Plan (1) Diverticulitis of large intestine with complication: (2) Diabetes 1.5, managed as type 1: Plan Lorenzo is a 64-year-old man with past medical history of complicated diverticulitis with LLQ IR drain placement x 2 for diverticular abscess, T2DM, dyslipidemia, CAD, OA, tobacco dependence, GERD, and severe protein calorie malnutrition. He returned to the ED with severe abdominal pain x 6 days and has not been out of bed during that timeframe as well. He was admitted for management of his complicated diverticulitis. #Complicated diverticulitis, drain in place -longstanding history of diverticulitis since August of this year. Multiple hospitalizations since then for the same. Had an IR drain placed at [facility] previously then had another IR drain placed at [facility] [place] while admitted here a few weeks ago. - CT A/P on admission shows improvement in diverticulitis compared to previous but does note small perforation of the proximal sigmoid colon with a thin fistula extending between the sigmoid colon and the deep collection - Afebrile, no leukocytosis, normal lactate, normal procalcitonin on admission - On exam drain remains with feculent output both in and around the drain site Abdomen is nontender on exam 12/15, Continue multimodal pain control. Tylenol Toradol hydromorphone for multimodal pain control, baclofen on-call for chronic back pain and spasms CRC on 12/15. Heparin has had a future hold placed for that morning, n.p.o. at midnight order has been placed Continue Zosyn Hemodynamically stable 12/14 #Hypokalemia, hypomagnesemia Improved with repletion. Potassium and magnesium both low normal, additional oral supplementation given 12/14 to optimize BMP daily, trend magnesium periodically #Elevated BP Normalized with pain control #Anemia | thrombocytosis - B12 and folate WNL last admission Ferritin is elevated however this is likely as an acute phase reaction. TSAT not able to be performed however serum iron is below the limits of detection. He would benefit from Venofer however given active significant infection without source control recommend optimization with blood as needed to transfusion threshold of 7, or 8 if signs of endorgan ischemia, at this time and treated with Venofer once he has had adequate control of his complicated diverticulitis. Hemoglobin uptrending 12/14, no clinical bleeding #DMT1.5 Home regimen includes Lantus 30U AM, lispro, metformin. Last A1c 15.8% in August 2024 - Hold home regimen - SSI. Basal insulin held Pharmacy glycemic management following. Adequate control 12/14. #CADcontinue atorvastatin, aspirin held #Chronic paincontinue home baclofen. Hold oxycodone with pain control regimen as outlined above VTE PPx: Continue subcu heparin, hold on 12/15 for surgical intervention of his complicated diverticular and fistular disease Admission and Anticipated Discharge Date Admission Date: December 11, 2024 Subjective Ongoing spasms and fullness in the left hip at times. Drain shows minimal cloudy mixed bilious appearing drainage, no new events or concerns. He is awake, appropriate for the most part. Denies any new complaints or events or concerns. No new reports per nursing Physical Exam Physical Exam: General: A&Ox3. NAD. Cooperative. HEENT: Atraumatic, normocephalic. Vision and hearing grossly intact Pulm: Symmetrical chest rise. No increase in work of breathing. No respiratory distress. Cardiac: RRR, -mrg. Radial pulses intact and symmetrical. Abdominal: Abdomen minimally distended, soft Left lower quadrant drains remain in place with feculent material both in drain. Nontender to palpation and no rebound/rigidity/guarding today MSK: No edema Skin: No rash or discoloration Results & Data Results & Data Vital Signs (Past 12 Hours) Vital Signs Temp Pulse Resp BP Pulse Ox O2 Del Method 12/15/24 08:27 36.7 C 67 16 143/87 H 94 Room Air 12/15/24 05:08 37.1 C 83 18 155/75 H 99 Room Air Laboratory Results 12/15/24 12/15/24 12/15/24 11:31 05:59 05:06 WBC 7.48 RBC 3.12 L Hgb 8.2 L Hct 26.4 L MCV 84.6 MCH 26.3 MCHC 31.1 L RDW Std Deviation 42.9 RDW Coeff of Marilin 14.0 Plt Count 371 MPV 9.3 L Immature Gran % (Auto) 0.3 Neut % (Auto) 79.3 Lymph % (Auto) 10.3 Roberts % (Auto) 5.9 Eos % (Auto) 3.7 Baso % (Auto) 0.5 Neut # (Auto) 5.93 Lymph # (Auto) 0.77 L Roberts # (Auto) 0.44 Eos # (Auto) 0.28 Baso # (Auto) 0.04 Immature Gran # (Auto) 0.02 Sodium 142 Potassium 3.7 Chloride 109 H Carbon Dioxide 25 Anion Gap 8 BUN 3 L Creatinine 0.65 Est Cr Clr Drug Dosing 118.5 eGFR 103.92 BUN/Creatinine Ratio 4.6 L Glucose 123 H POC Glucose 128 H 127 H Calcium 8.4 L 12/14/24 12/14/24 20:25 16:27 WBC RBC Hgb Hct MCV MCH MCHC RDW Std Deviation RDW Coeff of Marilin Plt Count MPV Immature Gran % (Auto) Neut % (Auto) Lymph % (Auto) Roberts % (Auto) Eos % (Auto) Baso % (Auto) Neut # (Auto) Lymph # (Auto) Roberts # (Auto) Eos # (Auto) Baso # (Auto) Immature Gran # (Auto) Sodium Potassium Chloride Carbon Dioxide Anion Gap BUN Creatinine Est Cr Clr Drug Dosing eGFR BUN/Creatinine Ratio Glucose POC Glucose 126 H 103 H Calcium PG Care Time/CCT Total # of Minutes Spent Total Time Spent with Patient: Total time spent is greater than 50% in coordination of care (as documented) at patient's floor/unit and/or counseling patient: Coding Level of Care Code 70395 SUB INP/OBS CARE 2MIN Diagnoses Diverticulitis of large intestine with complication K57.32 Diabetes 1.5, managed as type 1 E13.9"
--- NOTE | 2024-12-15 12:48 | Pharmacy Report ---
Pharmacy Glycemic Short Note 2 - Date of Service December 15, 2024 - Glycemic Short BSG Results (Last 24 hours): 12/14/24 12/14/24 12/15/24 16:27 20:25 05:06 Glucose POC Glucose 103 H 126 H 127 H 12/15/24 12/15/24 05:59 11:31 Glucose 123 H POC Glucose 128 H OUTPATIENT ANTIDIABETIC REGIMEN: * Lantus 30 units SQ daily * insulin lispro 4 units SQ ACHS * metformin 1000mg PO BID HbA1c: 8.4% on 12/12/24 ASSESSMENT: 12/15: * Lorenzo received only 5 units of insulin yesterday (all were bolus). BSGs were [id number]/dL. * Fasting BSG was 127mg/dL this morning. Patient is currently NPO for procedure today. Will continue Lantus scale at HS. * Will continue current bolus insulin regimen without change. 12/12: * Lorenzo is a 64 year old male who was admitted 12/11 for diverticulitis with small perforation of the proximal sigmoid colon. He is a type 1.5 diabetic who is managed as a type 1 and pharmacy has been consulted for glycemic management while he is admitted. * BSG on admit was 116mg/dL and was 124mg/dL. Fasting BSG was 109mg/dL. He is NPO for possible surgical intervention. * A weight based bolus insulin regimen with a stress of 2 was started and a Lantus scale (0,5,or 10 units depending on BSG) was added at HS PLAN FOR INPATIENT GLYCEMIC CONTROL: * Hold outpatient diabetes medications * Basal insulin * Lantus scale SQ at HS (0, 5, or 10 units depending on BSG). * Bolus insulin * NovoLog per scale ACHS or Q6hrs while NPO * Goal Range: Low 110 mg/dL - High 140 mg/dL * Correction Factor: 30 mg/dL/unit * Nutritional / Prandial insulin per carb ratio of 1 unit per 12 grams CHO consumed
[2024-12-15] MEDS ORDERED: ONDANSETRON INJ 2 MG/ML 2 ML VIAL IV PRN (13:29)
[2024-12-15] MEDS ORDERED: ATROPINE SULFATE 0.1 MG/ML 10ML SYR IV PRN (13:29)
[2024-12-15] MEDS ORDERED: PROPOFOL IV EMULSION 10 MG/ML 20 ML VIAL IV ONE ×2 (13:43→16:17)
[2024-12-15] MEDS ORDERED: ROCURONIUM BROMIDE 10 MG/ML 5 ML VIAL IV ONE ×2 (13:43→15:24)
[2024-12-15] MEDS ORDERED: KETAMINE HCL 10MG/ML SYR ONE (13:43)
[2024-12-15] MEDS ORDERED: MIDAZOLAM HCL 1 MG/ML 2ML VIAL ONE (13:43)
--- NOTE | 2024-12-15 13:56 | Infectious Disease Consult ---
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 Micro: 11/24 Pelvic fluid cx: VRE, Strep anginosus 11/16 Body fluid cx: E coli, Viridans Strep, Bacteroides ovatus, Peptoniphilus assacharolyticus Abx: Pip-tazo 12/11 - present 64 yo M with T2DM, GERD, CAD, perforated diverticulitis with abscess (08/2024, managed medically and discharged with Augmentin and metronidazole x 10 days), subsequent admission to [facility] (11/15-11/20/24) with persistent intra- abdominal abscess s/p IR drain placement (11/16/24) with drainage cx growing abbott- sensitive E coli, Viridans Strep, Bacteroides, Peptoniphilus, discharged on ciprofloxacin and metronidazole x 14 days, admission to [facility] (/7-11/24/24) with worsened abd pain and CTAP showing concern for abscess with fistulous tract to area of diverticulitis s/p IR drain (11/24/24). He ultimately left AMA on his course of cipro and metronidazole, prior to return of drainage culture which grew VRE and Strep anginosus. Pt presented on 12/11 with severe abd pain x 6 days. On presentation, pt was afebrile, VSS without leukocytosis. CT A/P with IV contrast showed minimal acute diverticulitis at the sigmoid colon, improved, with LLQ drains well-positioned with collections decreased in size with mostly gas remaining and trace fluid; a small perforation of proximal sigmoid colon with a thin fistula extending between the sigmoid colon and deep collection. He was started on Zosyn. Surgery was consulted, noted fistula to the skin with feculent drainage coming out of his abdomen. Plan for OR on 12/15 for resection and possible ostomy formation. ID consulted as prior drainage culture from 11/24 grew VRE. Recommendations: - Started daptomycin to cover VRE - Continue Zosyn - Please send cultures from the OR. Will follow-up operative findings Will continue to follow Consultation Information This patient recommendation is based on a telemedicine consult request which was completed asynchronously through chart review and information provided by the primary physician. The patient was not seen or examined today. The evaluation is consultative in nature and all patient care and treatment decisions can either be accepted or rejected by the patient's primary hospital-based treating physician using their own independent medical judgment for their patient. Emotional Disabilities Teacher contact information: Please call [facility] Call Center . (Phone Number For Physician Use Only) Time Spent Reviewing Chart: 31+ minutes History of Present Illness Reason for Consultation: VRE Attending Physician: Delmer Nicolas MD History of Present Illness 64 yo M with T2DM, GERD, CAD, perforated diverticulitis with abscess (08/2024, managed medically and discharged with Augmentin and metronidazole x 10 days), subsequent admission to [facility] (11/15-11/20/24) with persistent intra- abdominal abscess s/p IR drain placement (11/16/24) with drainage cx growing abbott- sensitive E coli, Bacteroides, Peptostreptococcus, discharged on ciprofloxacin and metronidazole x 14 days, admission to [facility] (-11/24/24) with worsened abd pain and CTAP showing concern for abscess with fistulous tract to area of diverticulitis s/p IR drain (11/24/24). He ultimately left AMA on his course of cipro and metronidazole, prior to return of drainage culture which grew VRE and Strep anginosus. Pt presented on 12/11 with severe abd pain x 6 days. On presentation, pt was afebrile, VSS. Labs showed WBC 10.09. CT A/P with IV con trast showed minimal acute diverticulitis at the sigmoid colon, improved, with LLQ drains well-positioned with collections decreased in size with mostly gas remaining and trace fluid; a small perforation of proximal sigmoid colon with a thin fistula extending between the sigmoid colon and deep collection. He was started on Zosyn. Surgery was consulted, noted fistula to the skin with feculent drainage coming out of his abdomen. Plan for OR on 12/15 for resection and possible ostomy formation. ID consulted as prior drainage culture from 11/24 grew VRE. Allergies Allergy/AdvReac Type Severity Reaction Status Date / Time cyclobenzaprine AdvReac Severe Nightmares Verified 12/11/24 16:26 [From Flexeril] Home Medications Medication Instructions Recorded Confirmed Type Wheeled Walker #1 ea 05/06/24 11/28/24 Rx insulin syringe,safety needle 0.5 #100 ea 08/29/24 11/28/24 Rx mL 29 gauge x 1/2" (BD SafetyGlide Insulin Syringe) needle (disp) 30 gauge 30 gauge x #100 ea 08/29/24 11/28/24 Rx 1" blood sugar diagnostic (OneTouch #100 ea 09/02/24 11/28/24 Rx Ultra Test strips) blood-glucose meter (OneTouch #1 ea 09/02/24 11/28/24 Rx Ultra2 Meter) lancets 30 gauge (OneTouch #100 ea 09/02/24 11/28/24 Rx UltraSoft 2 Lancet) blood-glucose sensor (FreeStyle #1 ea 09/03/24 11/28/24 Rx Sebastián 3 Plus Sensor device) blood-glucose,commercial insurance underwriter,cont #1 ea 09/03/24 11/28/24 Rx (FreeStyle Sebastián 3 [place]) baclofen 10 mg tablet 10 mg PO TID PRN muscle spasm #90 10/15/24 12/11/24 Rx tabs insulin lispro 100 unit/mL 4 unit (0.04 mL) subcut ACHS #15 mL 10/15/24 12/11/24 Rx subcutaneous solution metformin 1,000 mg tablet 1,000 mg PO BID #180 tabs 10/17/24 12/11/24 Rx ciprofloxacin HCl 500 mg tablet 500 mg PO BID 11/23/24 12/11/24 History insulin glargine 100 unit/mL 30 unit SC QAM 11/23/24 12/11/24 History subcutaneous solution (Lantus U-100 Insulin) metronidazole 500 mg tablet 500 mg PO TID 11/23/24 12/11/24 History oxycodone 10 mg tablet 10 mg PO Q6H PRN pain #120 tabs 11/28/24 12/11/24 Rx Patient History Medical History Acute metabolic encephalopathy Diverticulitis of intestine with perforation and abscess Uncontrolled diabetes mellitus with ketoacidosis without coma Pseudohyponatremia Sacral fracture DKA (diabetic ketoacidosis) GERD (gastroesophageal reflux disease) controlled, stable per pt Chronic recurrent sinusitis per hx, nothing recent Hx of fracture (12/2023) sacral, due to fall Hx of fall (12/2023) broke tailbone- no surgery/ given baclofen Osteoarthritis of knee Tinnitus, bilateral Diabetes mellitus, type 2 NIDDM Coronary artery disease no stents; last cath 2024 - 40-50% LAD, 50% L circ, RCA without disease[place] [facility] [place] Dyslipidemia Asthma allergy induced - prn inhaler Hypertension controlled, stable per pt Surgical History History of cardiac catheterization (12/2023) [facility] -- no stents- told 2 minor blockages and treating with meds- follows with te (05/13) S/p bilateral myringotomy with tube placement as a child, multiple times History of back surgery (2007) 2007, Lumbar - laser - herniated disc Family History Father Myocardial infarction Quadruple bypass Brother Myocardial infarction Lung cancer Mother Diabetes PAD (peripheral artery disease) Denies family history of Ovarian cancer Prostate cancer Breast cancer Colorectal cancer Social History Smoking Status: Current some day smoker Tobacco Type: Cigarettes Age Started Using Tobacco: 13; packs per day: 1; Cigarettes Per Day: pt "goes out to vehicle when stressed" and have 1-2.; Second Hand Exposure: No; Do You Dip or Chew Tobacco: No; Hx Alcohol Use: Yes Alcohol type: hard liquor Alcohol Intake Frequency: 2-3 x/Week Hx Substance Use: Yes Last Used Substance: Unknown Last Used Substance Other:: haven't used in a long time Preferred Language: Kazakh Communication Ability: Effective Visual Impairment: No Limitations Hearing Ability: Normal Electrician Helper Required: No Beliefs That Will Affect Care: None marital status: Current Living Situation: Alone Current Living Situation Comment: "custodial home current 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 Direct sunlight is very irrita) Assistive Devices: Walker Results & Data Vital Signs (Past 12 Hours) Vital Signs Temp Pulse Resp BP Pulse Ox O2 Del Method 12/15/24 13:09 36.8 C 67 20 146/80 H 97 Room Air 12/15/24 08:27 36.7 C 67 16 143/87 H 94 Room Air 12/15/24 05:08 37.1 C 83 18 155/75 H 99 Room Air Laboratory Results Short CBC 12/15/24 Range/Units 05:59 WBC 7.48 (4.8-10.8) K/ul Hgb 8.2 L (14.0-18.0) g/dl Hct 26.4 L (42.0-52.0) % Plt Count 371 (130-400) K/uL BMP 12/15/24 05:59 Sodium 142 Potassium 3.7 Chloride 109 H Carbon Dioxide 25 BUN 3 L Creatinine 0.65 Glucose 123 H Calcium 8.4 L Medications Administered Current Inpatient Medications Acetaminophen (Acetaminophen 325 Mg Tab) 650 mg PO Q4H PRN PRN Reason: pain/fever Stop: 01/10/25 18:29 Al Hydrox/Mg Hydrox/Simethicone (Aluminum/Magnesium Susp 30 Ml Udc) 30 ml PO Q6H PRN PRN Reason: Dyspepsia Stop: 01/10/25 18:29 Atropine Sulfate (Atropine Sulfate 0.1 Mg/Ml 10ml Syr) 0.5 mg IV Q1M PRN PRN Reason: PACU Use-HR<40 &/or Bradycardi Stop: 12/15/24 21:29 Baclofen (Baclofen 10 Mg Tab) 10 mg PO TID PRN PRN Reason: muscle spasm Stop: 01/10/25 18:29 Last Admin: 12/14/24 20:54 Dose: 10 mg Dextrose (Dextrose 50% 50 Ml Syringe) 25 - 50 ml IV UD PRN; Protocol PRN Reason: Hypoglycemia Protocol Stop: 01/10/25 18:29 Ephedrine Sulfate (Ephedrine Sulfate 50 Mg/Ml Amp) 5 mg IV Q5M PRN PRN Reason: PACU Use Only-SBP<90 mmHg Stop: 12/15/24 21:29 Fentanyl Citrate (Fentanyl Citrate Pf 100 Mcg/2 Ml Vial) 25 mcg IV Q5M PRN PRN Reason: PACU Use Only-Pain Stop: 12/15/24 21:29 Glucagon (Glucagon For Inj 1 Mg Vial) 1 mg SQ UD PRN; Protocol PRN Reason: Hypoglycemia Protocol Stop: 01/10/25 18:29 Glucose (Glucose 40% Gel 15 Gm Tube) 15 - 30 gm PO UD PRN; Protocol PRN Reason: Hypoglycemia Protocol Stop: 01/10/25 18:29 Glucose (Glucose 10 Tab/Tube) 4 - 8 tab PO UD PRN; Protocol PRN Reason: Hypoglycemia Protocol Stop: 01/10/25 18:29 Heparin Sodium (Porcine) (Heparin Sod 5,000 Unit/0.5 Ml Vial) 5,000 units SQ Q8 JOSE JUAN Stop: 01/11/25 21:59 Last Admin: 12/14/24 20:55 Dose: 5,000 units Hydralazine HCl (Hydralazine Hcl 20 Mg/Ml Vial) 10 mg IV Q8H PRN PRN Reason: SBP >185, DBP >95 Stop: 01/10/25 18:29 Hydromorphone HCl (Hydromorphone Inj 0.5 Mg/0.5 Ml Syr) 0.5 mg IV Q3H PRN PRN Reason: Moderate Pain (4,5,6) on NRS Stop: 12/26/24 08:46 Last Admin: 12/15/24 05:31 Dose: 0.5 mg Hydromorphone HCl (Hydromorphone Inj 1 Mg/Ml Syringe) 1 mg IV Q3H PRN PRN Reason: Severe Pain (7,8,9,10) on NRS Stop: 12/26/24 08:46 Last Admin: 12/15/24 10:06 Dose: 1 mg Piperacillin Sod/Tazobactam Sod (Zosyn) 4.5 gm in 100 mls @ 25 mls/hr IV Q8H JOSE JUAN; Protocol Stop: 12/22/24 22:59 Last Infusion: 12/15/24 11:45 Dose: Infused Lactated Ringer's (Lr) 1,000 mls @ 80 mls/hr IV .[id number] JOSE JUAN Stop: 12/16/24 07:29 Last Admin: 12/15/24 10:09 Dose: Not Given Daptomycin 850 mg/ Syringe 17 mls @ 8.5 mls/min IV Q24H [facility]; Protocol Stop: 12/25/24 13:59 Insulin Aspart (Insulin Aspart Per Unit Charge) 0 units SC Q6 JOSE JUAN Stop: 01/11/25 16:29 Last Admin: 12/15/24 11:46 Dose: Not Given Insulin Glargine (Lantus Per Unit Charge) 0 units SC HS [facility]; Protocol Stop: 01/11/25 20:59 Last Admin: 12/14/24 22:07 Dose: Not Given Ketorolac Tromethamine (Ketorolac Tromethamine 15 Mg/Ml Vial) 10 mg IV Q6H PRN PRN Reason: Pain, second line Stop: 12/17/24 09:24 Last Admin: 12/15/24 12:07 Dose: 10 mg Magnesium Oxide (Magnesium Oxide 400 Mg Tab) 400 mg PO QAM [facility] Stop: 01/13/25 15:14 Last Admin: 12/15/24 07:53 Dose: Not Given Miscellaneous (Carbohydrates For Hypoglycemia ) 15 - 30 gm PO UD PRN PRN Reason: Hypoglycemia Protocol Stop: 01/10/25 18:29 Miscellaneous Information (Pharmacy Glycemic Mgmt Consult) 1 each N/A UD PRN PRN Reason: Consult Stop: 01/10/25 18:29 Ondansetron HCl (Ondansetron Inj 2 Mg/Ml 2 Ml Vial) 4 mg IV Q6H PRN PRN Reason: Nausea Stop: 01/10/25 18:29 Ondansetron HCl (Ondansetron Inj 2 Mg/Ml 2 Ml Vial) 4 mg IV ONCE PRN PRN Reason: PACU Use Only-Nausea/Vomiting Stop: 12/15/24 21:29
--- NOTE | 2024-12-15 14:45 | History & Physical Bridge Note ---
Date of Service December 15, 2024 History & Physical Bridge Note I have examined the patient, reviewed the History & Physical and in the interval since the performance of the History & Physical I have noted the following changes of clinical significance: no changes noted. Plan will be for laparoscopic possible open sigmoidectomy with ostomy versus anastomosis. Risks of procedure were discussed with patient and they include bleeding, infection, injury to surrounding structures, need for further procedures, anastomotic leak, wound issues to include wound infection, dehiscence and hernia and cardiopulmonary events that can occur. Alternatives include no surgery, which the patient declines. He wishes to proceed w/ surgery. All questions were answered.
[2024-12-15] MEDS ORDERED: ONDANSETRON INJ 2 MG/ML 2 ML VIAL ONE (15:23)
[2024-12-15] MEDS ORDERED: SUGAMMADEX SODIUM 200 MG/2 ML VIAL IV ONE (15:23)
[2024-12-15] MEDS ORDERED: DEXAMETHASONE SOD INJ 4 MG/ML VIAL ONE (15:23)
--- NOTE | 2024-12-15 15:37 | Operative Report ---
PG Post Operative Report Pre & Post Diagnosis Diverticulitis with abscess, Need for ureteral identification Same with mild stricture Operation Date: 12/15/24 07:00 <No data on this case meets the specified criteria> I identified the patient and participated in the time-out.: Yes Procedure Cystoscopy with urethral dilation. Bilateral ureteral catheter placement Operation Date: 12/15/24 07:00 <No data on this case meets the specified criteria> Surgeon Davy Tsai, II, DO Solar Energy Systems Engineer None Estimated Blood Loss 1 Findings Consistent with Post-Op Diagnosis 5 Fr catheters placed in good position with good drainage. Mild meatal stricture dilated without issue. Patient was in stable condition after procedure. Care was transferred to the colorectal team for their surgical intervention. Specimens None Drains 5 Fr open ended urethral catheters bilaterally 18 Fr Power catheter Anesthesia Type MAC Complications none Disposition Disposition: Recovery Room Indications Patient with severe diverticular disease undergoing surgical management and treatment by colorectal surgery. Due to complicated history requested ureteral catheters for identification of ureters interoperatively. Risks and benefits discussed at length. Description of Procedure Patient was consented and brought back to the operating room. Patient was placed under anesthesia in the supine position and moved to the dorsal lithotomy position. Patient was prepped and draped in the regular sterile fashion. A time out was completed. A 30degree Cystoscope was placed into the bladder and the entire bladder was examined. A mild but significant stricture was noted at the meatus. This was dilated without issue or problem. On inspection after dilation there was no major issues or injury. The entire bladder was inspected. No sign of major issue mass tumor or lesion. The UO's were identified. The UO was cannulized with a 5 Lithuanian open-ended catheter. The catheter advanced easily without major issue. A urine drip was noted from the end of the catheter confirming positioning in the renal pelvis. This was completed for first the left and then the right side. Both were placed easily without major issue. Once the catheters were in place the scope was removed. The urethra was inspected a final time. No major bleeding or injury was noted. A Power catheter was then placed and the balloon elevated without major issue. The 2 ureteral catheters and the Power catheter were then attached to a common catheter drainage device. This was then attached to a Power drainage bag. The tubing and device were then secured to the patient's leg utilizing tape. The patient was cleaned. Once cleaned the patient was taken out of the lithotomy position. Care was then transferred to the colorectal surgery team with the patient in stable condition having tolerated the procedure well with no complications. I was present and participated in all aspects of the procedure as outlined above. Ureteral catheters will remain in position until deemed no longer needed by the colorectal surgery team. They can be then removed by nursing prior to the end of the procedure. Power catheter can remain in place as long as needed with plans for removal post procedure or sooner as determined by the primary team. I attest to the content of the Intraoperative Record and any orders documented therein. Any exceptions are noted below.
[2024-12-15] MEDS ORDERED: HYDROmorphone INJ 2 MG/ML SYR/VIAL ONE ×2 (15:58→16:12)
[2024-12-15] MEDS: BUPIVACAINE LIPOSOME 1.3% 266 MG/20 ML VIAL ONE (16:42)
[2024-12-15] MEDS: BUPIVACAINE/EPINEPHRINE 0.5% MPF 1:200,000 30 ML VIAL ONE (16:42)
[2024-12-15] MEDS ORDERED: DexMEDEtomidine HCL IV 100 MCG/ML VIAL IV ONE (17:43)
--- NOTE | 2024-12-15 17:47 | Operative Report ---
PG Post Operative Report Pre & Post Diagnosis Operation Date: 12/15/24 07:00 Pre-Op Diagnosis: Diverticulitis of large intestine with complication. Post-Op Diagnosis: Diverticulitis of large intestine with complication. I identified the patient and participated in the time-out.: Yes Procedure Operation Date: 12/15/24 07:00 Actual Procedures s Laparoscopy, laparoscopic ashley's procedure, ostomy creation - Ji Gomez MD CPT 87914 p Cystoscopy, bilateral ureteral stents placement, garcia placement(Bilateral) - Davy Tsai DO Surgeon Ji Gomez MD Leaf Sorter Donita Manzano PA-C Estimated Blood Loss 51 (Cystoscopy 1ml, Ashley's 50ml) Findings Consistent with Post-Op Diagnosis Severely thickened and inflamed left colon and sigmoid colon with aguilar perforation and fistula to the left abdominal wall, adjacent to drain site Specimens Sigmoid and distal left colon Drains 19 Egyptian Justus drain in pelvis Anesthesia Type MAC Complications none Disposition Disposition: Recovery Room Indications Indications for procedure: This is a 64-year-old male with a history of complicated diverticulitis, status post drain placement for abscess who presen kavitha to the emergency room with worsening abdominal pain and workup revealed possible fistula of sigmoid colon adjacent to drain site. Patient was admitted and started on IV antibiotics and now presents for laparoscopic colectomy, possible anastomosis, possible ostomy. Risks of procedure were discussed with the patient and they include bleeding, infection, injury to surrounding structures, need for further procedures, anastomotic leak, wound infection, wound dehiscence, and hernia, and cardiopulmonary events that can occur. Alternatives include no surgery, which patient declines. Patient wishes to proceed with surgery. All questions were answered. Description of Procedure Informed consent was verified and site of surgery was verified and the patient was brought back to the operating room. General anesthesia was administered. He was in the supine position after urology had come in first and perform cystoscopy and placed bilateral ureteral catheters. A surgical timeout was performed and there were no issues. Next, left upper quadrant incision was made and a Veress needle was inserted and the abdomen was insufflated to about 15 mmHg. Next, a 5 mm trocar was placed under direct vision using the Optiview technique with a 30 degree laparoscope. The abdomen was inspected, there was no evidence of any injuries to any structures from entry into the abdominal cavity. 2 additional 5 mm ports were placed and secured, 1 was in the right upper quadrant and 1 was in the right lower quadrant. These were under direct vision. There was an umbilical hernia with omentum incarcerated in it and this was taken down gently. Next, the sigmoid colon was identified and was seen to be with evidence of severe inflammation and its attachment to the anterior abdominal wall on the left side. The sigmoid colon proximal to this and left colon were mobilized along the white line of Toldt with care taken to avoid injury to any structures including the ureters. A lower midline HandPort was used to assist with the dissection and at the level of the fistula, this was gently taken down and further mobilization was performed to the level of the rectum which was identified by the splaying of the tinea coli and the sacral premonitory. Because this was a procedure for benign disease, high ligation of the mesentery was not performed. The LigaSure device and suture ligation was used to divide the mesentery from the distal left colon to the level of the rectum and windows were created in the mesentery and the left colon was transected and the rectum was transected using the 80 IRIS stapler and the contour stapling device. 2-0 Prolene suture was used to reinforce the staple line at the rectal stump and also the ends were cut along in order to assist with identifying that the rectal stump for any future reversal. Because there was a large amount of stool in the proximal colon, decision was made not to perform an anastomosis due to concern for possible increased risk of anastomotic leak. The pelvis was irrigated and suctioned. Hemostasis was checked and achieved. A 19 Egyptian Justus drain was placed via the left lower quadrant port site and secured after placing it in the pelvis. Next, a circumferential incision was made overlying the patient's ostomy marking site and dissection was carried out and the fascia was divided and the peritoneum was divided and the left colon was brought out and secured. Next, the fascia of the HandPort was closed using 0 looped PDS and Exparel was injected into the fascia and the skin was closed using natalie. The colostomy was then matured in a Kathy fashion using 3-0 Vicryl suture. Sterile dressing was applied and the stents were removed at the end of the case and the patient was weaned off anesthesia and transferred to recovery in stable condition. He tolerated the procedure well. I attest to the content of the Intraoperative Record and any orders documented therein. Any exceptions are noted below.
--- NOTE | 2024-12-15 18:38 | Anesthesiology Progress Note ---
Date of Service December 15, 2024 Anesthesia Post Procedure Vital Signs Vital Signs: Temp Pulse Pulse Resp BP Pulse Ox O2 Del Method 12/15/24 18:30 87 19 129/83 96 Nasal Cannula 12/15/24 18:20 81 16 114/84 99 Oxymask 12/15/24 18:10 88 18 123/87 99 Oxymask 12/15/24 18:00 96 H 16 133/86 100 Oxymask 12/15/24 17:50 36.0 C L 94 H 17 114/70 93 Oxymask 12/15/24 13:09 36.8 C 67 20 146/80 H 97 Room Air 12/15/24 08:27 36.7 C 67 16 143/87 H 94 Room Air 12/15/24 05:08 37.1 C 83 18 155/75 H 99 Room Air 12/14/24 20:33 36.4 C L 58 L 18 98/59 L 96 Room Air O2 Flow Rate 12/15/24 18:30 4 12/15/24 18:20 4 12/15/24 18:10 4 12/15/24 18:00 8 12/15/24 17:50 8 12/15/24 13:09 12/15/24 08:27 12/15/24 05:08 12/14/24 20:33 Pain Intensity Abdomen: Pain Intensity: 8 Left Knee: Pain Intensity: 9 Generalized: Pain Intensity: 10 Transfer of Care Handoff Completed per policy Notes Mental Status: alert / awake / arousable Patient Amnestic to Procedure: Yes Nausea / Vomiting: adequately controlled Pain: adequately controlled Airway Patency, RR, SpO2: stable & adequate BP & HR: stable & adequate Hydration State: stable & adequate Anesthetic Complications: no major complications apparent and Pt Satisfied with anesthetic care
[2024-12-15] MEDS: DAPTOmycin 850 MG in SYRINGE 0 ML IV SCH (20:25)
[2024-12-15] MEDS: DOCUSATE SODIUM 100 MG CAP PO SCH (21:35)
[2024-12-15] MEDS: ACETAMINOPHEN 1,000 MG/100 ML VIAL IV SCH (21:39)
[2024-12-15] MEDS: SODIUM CHLORIDE 0.9% 1,000 ML IV SCH (21:40)
[2024-12-15] MEDS: LACTATED RINGER'S 1,000 ML IV SCH (21:48)
[2024-12-16] MEDS: HYDROmorphone INJ 0.5 MG/0.5 ML SYR IV STA (04:51)
[2024-12-16 08:59] LABS: Hematocrit (blood only) 27.9 % (42.0-52.0); Hemoglobin 8.6 g/dl (14.0-18.0); Immature Granulocytes # (auto) 0.07 K/uL (0.01-0.20); Immature Granulocytes % (auto) 0.6 %; Mean Corpuscular Hemoglobin 25.9 pg (25.0-34.0); Mean Corpuscular Volume 84.0 fL (80.0-100.0); Platelet Count 410 K/uL (130-400); RDW Standard Deviation 43.7 fL (36.4-46.3); Red Blood Count 3.32 M/uL (4.70-6.10); White Blood Count 11.21 K/ul (4.8-10.8)
[2024-12-16 09:15] LABS: Anion Gap 8.0 (3-11); Blood Urea Nitrogen 4.0 mg/dl (6-23); Calcium 8.3 mg/dl (8.6-10.3); Carbon Dioxide 27.0 mmol/L (21-32); Chloride 104.0 mmol/L (98-107); Creatinine Clr Calc Pharmacy 135.1 ml/min; Glucose 147.0 mg/dl (70-99(Fasting)); Magnesium 1.4 mg/dl (1.7-2.4); Potassium 3.9 mmol/L (3.5-5.1); Sodium 139.0 mmol/L (136-145)
[2024-12-16] MEDS: ASCORBIC ACID 500 MG TAB PO SCH (09:38)
--- NOTE | 2024-12-16 09:39 | Infectious Disease Progress Nt ---
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 (12/15/24) Micro: 11/24 Pelvic fluid cx: VRE, Strep anginosus 11/16 Body fluid cx: E coli, Viridans Strep, Bacteroides ovatus, Peptoniphilus assacharolyticus Abx: Pip-tazo 12/11 - present Dapto 12/15 - present 64 yo M with T2DM, GERD, CAD, perforated diverticulitis with abscess (08/2024, managed medically and discharged with Augmentin and metronidazole x 10 days), subsequent admission to [facility] (11/15-11/20/24) with persistent intra- abdominal abscess s/p IR drain placement (11/16/24) with drainage cx growing abbott- sensitive E coli, Viridans Strep, Bacteroides, Peptoniphilus, discharged on ciprofloxacin and metronidazole x 14 days, admission to [facility] (/-11/24/24) with worsened abd pain and CTAP showing concern for abscess with fistulous tract to area of diverticulitis s/p IR drain (11/24/24). He ultimately left A on his course of cipro and metronidazole, prior to return of drainage culture which grew VRE and Strep anginosus. Pt presented on 12/11 with severe abd pain x 6 days. On presentation, pt was afebrile, VSS without leukocytosis. CT A/P with IV contrast showed minimal acute diverticulitis at the sigmoid colon, improved, with LLQ drains well-positioned with collections decreased in size with mostly gas remaining and trace fluid; a small perforation of proximal sigmoid colon with a thin fistula extending between the sigmoid colon and deep collection. He was started on Zosyn. Surgery was consulted, noted fistula to the skin with feculent drainage coming out of his abdomen. Taken to OR on 12/15 for Garret's procedure with ostomy creation. ID consulted as prior drainage culture from 11/24 grew VRE. Recommendations: - Given source control has been obtained, can continue daptomycin and Zosyn through 12/19 to complete 4 days of antibiotics post-op. If pt discharges prior to then, can transition to linezolid 600 mg PO BID and amox/clav 875 mg PO BID Discussed with Dr. Gomez. Will sign off. Admission and Anticipated Discharge Date Admission Date: December 11, 2024 Subjective This patient recommendation is based on a telemedicine consult request which was completed asynchronously through chart review and information provided by the primary physician. The patient was not seen or examined today. The evaluation is consultative in nature and all patient care and treatment decisions can either be accepted or rejected by the patient's primary hospital-based treating physician using their own independent medical judgment for their patient. Time Spent Reviewing Chart: 11 - 20 minutes Taken to the OR yesterday for Garret's procedure Results & Data Vital Signs (Past 12 Hours) Vital Signs Temp Pulse Resp BP Pulse Ox O2 Del Method 12/16/24 08:21 36.4 C L 82 20 171/96 H 96 Room Air 12/16/24 04:13 36.5 C 97 H 18 179/91 H 97 Room Air 12/15/24 23:48 37 C 104 H 18 159/94 H 96 Room Air 12/15/24 22:00 37.1 C 109 H 18 143/81 H 94 Room Air Laboratory Results Short CBC 12/16/24 Range/Units 07:40 WBC 11.21 H (4.8-10.8) K/ul Hgb 8.6 L (14.0-18.0) g/dl Hct 27.9 L (42.0-52.0) % Plt Count 410 H (130-400) K/uL BMP 12/16/24 07:40 Sodium 139 Potassium 3.9 Chloride 104 Carbon Dioxide 27 BUN 4 L Creatinine 0.57 L Glucose 147 H Calcium 8.3 L Medications Administered Current Inpatient Medications Acetaminophen (Acetaminophen 325 Mg Tab) 650 mg PO Q4H PRN PRN Reason: pain/fever Stop: 01/10/25 18:29 Al Hydrox/Mg Hydrox/Simethicone (Aluminum/Magnesium Susp 30 Ml Udc) 30 ml PO Q6H PRN PRN Reason: Dyspepsia Stop: 01/10/25 18:29 Ascorbic Acid (Ascorbic Acid 500 Mg Tab) 500 mg PO QAM JOSE JUAN Stop: 01/15/25 08:59 Baclofen (Baclofen 10 Mg Tab) 10 mg PO TID PRN PRN Reason: muscle spasm Stop: 01/10/25 18:29 Last Admin: 12/16/24 00:00 Dose: 10 mg Dextrose (Dextrose 50% 50 Ml Syringe) 25 - 50 ml IV UD PRN; Protocol PRN Reason: Hypoglycemia Protocol Stop: 01/10/25 18:29 Docusate Sodium (Docusate Sodium 100 Mg Cap) 100 mg PO BID [facility] Stop: 01/14/25 20:59 Last Admin: 12/15/24 21:35 Dose: Not Given Glucagon (Glucagon For Inj 1 Mg Vial) 1 mg SQ UD PRN; Protocol PRN Reason: Hypoglycemia Protocol Stop: 01/10/25 18:29 Glucose (Glucose 40% Gel 15 Gm Tube) 15 - 30 gm PO UD PRN; Protocol PRN Reason: Hypoglycemia Protocol Stop: 01/10/25 18:29 Glucose (Glucose 10 Tab/Tube) 4 - 8 tab PO UD PRN; Protocol PRN Reason: Hypoglycemia Protocol Stop: 01/10/25 18:29 Heparin Sodium (Porcine) (Heparin Sod 5,000 Unit/0.5 Ml Vial) 5,000 units SQ Q8 JOSE JUAN Stop: 01/11/25 21:59 Last Admin: 12/14/24 20:55 Dose: 5,000 units Hydralazine HCl (Hydralazine Hcl 20 Mg/Ml Vial) 10 mg IV Q8H PRN PRN Reason: SBP >185, DBP >95 Stop: 01/10/25 18:29 Hydromorphone HCl (Hydromorphone Inj 0.5 Mg/0.5 Ml Syr) 0.5 mg IV Q3H PRN PRN Reason: Moderate Pain (4,5,6) on NRS Stop: 12/26/24 08:46 Last Admin: 12/15/24 05:31 Dose: 0.5 mg Hydromorphone HCl (Hydromorphone Inj 1 Mg/Ml Syringe) 1 mg IV Q3H PRN PRN Reason: Severe Pain (7,8,9,10) on NRS Stop: 12/26/24 08:46 Last Admin: 12/16/24 07:45 Dose: 1 mg Piperacillin Sod/Tazobactam Sod (Zosyn) 4.5 gm in 100 mls @ 25 mls/hr IV Q8H [facility]; Protocol Stop: 12/22/24 22:59 Last Admin: 12/16/24 06:20 Dose: 25 mls/hr Daptomycin 850 mg/ Syringe 17 mls @ 8.5 mls/min IV Q24H [facility]; Protocol Stop: 12/25/24 13:59 Last Admin: 12/15/24 20:25 Dose: 8.5 mls/min Acetaminophen (Ofirmev) 1,000 mg in 100 mls @ 400 mls/hr IV Q8H [facility] Stop: 12/18/24 20:22 Last Infusion: 12/16/24 04:41 Dose: Infused Sodium Chloride (Nss) 1,000 mls @ 80 mls/hr IV .[id number] [facility] Stop: 12/18/24 21:29 Last Admin: 12/15/24 21:40 Dose: 100 mls/hr Magnesium Sulfate/Dextrose (Magnesium Sulfate / D5w) 1 gm in 100 mls @ 50 mls/hr IV ONE ONE Stop: 12/16/24 11:15 Insulin Aspart (Insulin Aspart Per Unit Charge) 0 units SC Q6 [facility] Stop: 01/11/25 16:29 Last Admin: 12/16/24 06:02 Dose: Not Given Insulin Glargine (Lantus Per Unit Charge) 0 units SC HS [facility]; Protocol Stop: 01/11/25 20:59 Last Admin: 12/15/24 21:39 Dose: 10 units Ketorolac Tromethamine (Ketorolac Tromethamine 15 Mg/Ml Vial) 10 mg IV Q6H PRN PRN Reason: Pain, second line Stop: 12/17/24 09:24 Last Admin: 12/15/24 23:33 Dose: 10 mg Miscellaneous (Carbohydrates For Hypoglycemia ) 15 - 30 gm PO UD PRN PRN Reason: Hypoglycemia Protocol Stop: 01/10/25 18:29 Miscellaneous Information (Pharmacy Glycemic Mgmt Consult) 1 each N/A UD PRN PRN Reason: Consult Stop: 01/10/25 18:29 Ondansetron HCl (Ondansetron Inj 2 Mg/Ml 2 Ml Vial) 4 mg IV Q6H PRN PRN Reason: Nausea Stop: 01/10/25 18:29
[2024-12-16] MEDS: MAGNESIUM SULFATE / D5W 1 GM/100 ML BAG IV ONE (10:56)
--- NOTE | 2024-12-16 11:02 | Surgery Progress Note ---
Date of Service December 16, 2024 Assessment & Plan (1) Diverticulitis of large intestine with complication: Plan Postop day 1, laparoscopic Garret's procedure, improving. Have patient out of bed, ambulate, discharge planning, can restart DVT prophylaxis, advance diet as tolerated, continue antibiotics. May Hep-Lock IV fluids when tolerating oral intake. Admission and Anticipated Discharge Date Admission Date: December 11, 2024 Subjective Patient is postop day 1 from laparoscopic Garret's procedure for perforated and complicated diverticulitis. He is doing well without any acute issues. He denies significant pain. He has not gotten out of bed. Review of Systems Review of Systems: All systems reviewed & are unremarkable except as noted in HPI & below Physical Exam Constitutional: WD/WN, vitals as above Eyes: PERRL, conjunctivae normal, anicteric sclerae Respiratory: Normal respiratory effort Cardiovascular: Rate/Rhythm: regular rate Gastrointestinal (Abdomen): Soft but slightly distended, LETICIA drain with serosanguineous fluid, Power with slightly dark urine, ostomy healthy and viable appearing with a small amount of sanguinous fluid in bag Results & Data Vital Signs (Past 12 Hours) Vital Signs Temp Pulse Resp BP Pulse Ox O2 Del Method 12/16/24 08:21 36.4 C L 82 20 171/96 H 96 Room Air 12/16/24 04:13 36.5 C 97 H 18 179/91 H 97 Room Air 12/15/24 23:48 37 C 104 H 18 159/94 H 96 Room Air Sodium 139 mmol/L (136-145) 12/16/24 Potassium 3.9 mmol/L (3.5-5.1) 12/16/24 Chloride 104 mmol/L (98-107) 12/16/24 Carbon Dioxide 27 mmol/L (21-32) 12/16/24 Anion Gap 8 (3-11) 12/16/24 BUN 4 mg/dl (6-23) L 12/16/24 Creatinine 0.57 mg/dl (0.6-1.4) L 12/16/24 eGFR 108.13 12/16/24 BUN/Creatinine Ratio 7.0 (10-20) L 12/16/24 Glucose 147 mg/dl (70-99(Fasting)) H 12/16/24 Hemoglobin A1c 8.4 % (4.5-5.6) H 12/12/24 Calcium 8.3 mg/dl (8.6-10.3) L 12/16/24 Phosphorus 4.0 mg/dl (2.5-4.9) 12/16/24 Total Bilirubin 1.4 mg/dl (0.2-1.0) H 12/12/24 Direct Bilirubin 0.1 mg/dl (0-0.2) 11/23/24 AST 18 U/L (13-39) 12/12/24 ALT 12 U/L (7-52) 12/12/24 Alkaline Phosphatase 67 U/L (34-104) 12/12/24 Total Protein 6.6 gm/dl (6.0-8.3) 12/12/24 Albumin 3.0 gm/dl (3.4-5.0) L 12/12/24 Globulin 3.6 gm/dl (2.5-4.0) 12/12/24 Triglycerides 207 mg/dl (0-150) H 03/28/24 Cholesterol 158 mg/dl (0-200) 03/28/24 LDL Cholesterol, Calc 72 mg/dl 03/28/24 HDL Cholesterol 45 mg/dl 03/28/24 Cholesterol/HDL Ratio 3.5 (0-5) 03/28/24 PG Care Time/CCT Total # of Minutes Spent Total Time Spent with Patient: Total time spent is greater than 50% in coordination of care (as documented) at patient's floor/unit and/or counseling patient: Coding Level of Care Code 41618 Post Operative Follow-Up Diagnoses Diverticulitis of large intestine with complication K57.32
--- NOTE | 2024-12-16 14:44 | Hospitalist Progress Note ---
"Date of Service December 16, 2024 Assessment & Plan (1) Diverticulitis of large intestine with complication: (2) Diabetes 1.5, managed as type 1: Plan Lorenzo is a 64-year-old man with past medical history of complicated diverticulitis with LLQ IR drain placement x 2 for diverticular abscess, T2DM, dyslipidemia, CAD, OA, tobacco dependence, GERD, and severe protein calorie malnutrition. He returned to the ED with severe abdominal pain x 6 days and has not been out of bed during that timeframe as well. He was admitted for management of his complicated diverticulitis. #Complicated diverticulitis, drain in place -longstanding history of diverticulitis since August of this year. Multiple hospitalizations since then for the same. Had an IR drain placed at [facility] previously then had another IR drain placed at [facility] while admitted here a few weeks ago. - CT A/P on admission shows improvement in diverticulitis compared to previous but does note small perforation of the proximal sigmoid colon with a thin fistula extending between the sigmoid colon and the deep collection - Garret procedure, diverting colostomy - Expected postoperative course at this point, close monitoring for nursing and surgical services #VRE -Now present within the wound and abdominal cultures. - Appreciate infectious disease consultation, daptomycin and Zosyn continuing. Will follow serial inflammatory markers and labs #Hypokalemia, hypomagnesemia Improved with repletion. Potassium and magnesium both low normal, additional oral supplementation given 12/14 to optimize BMP daily, trend magnesium periodically #Elevated BP Normalized with pain control #Anemia | thrombocytosis - B12 and folate WNL last admission Ferritin is elevated however this is likely as an acute phase reaction. TSAT not able to be performed however serum iron is below the limits of detection. He would benefit from Venofer however given active significant infection without source control recommend optimization with blood as needed to transfusion threshold of 7, or 8 if signs of endorgan ischemia, at this time and treated with Venofer once he has had adequate control of his complicated diverticulitis. Serial hemoglobin #DMT1.5 Home regimen includes Lantus 30U AM, lispro, metformin. Last A1c 15.8% in August 2024 - Hold home regimen - SSI. Basal insulin held Pharmacy glycemic management following. Adequate control 12/14. #CADcontinue atorvastatin, aspirin held #Chronic paincontinue home baclofen. Hold oxycodone with pain control regimen as outlined above VTE PPx: Continue subcu heparin, hold on 12/15 for surgical intervention of his complicated diverticular and fistular disease Admission and Anticipated Discharge Date Admission Date: December 11, 2024 Subjective See procedure note, postop day 1 from Gage's procedure. Diverting colostomy. Output appropriate, modest generalized tenderness on examination minimal distention. Vital signs been stable. Pain has been controlled with Dilaudid. Patient mostly concerned with abdominal pain but otherwise no other complaints or concerns. He remains at his baseline somewhat jovial/jocular disposition. No events for under changes this morning. No concerns per nursing or patient Physical Exam Physical Exam: General: A&Ox3. NAD. Cooperative. HEENT: Atraumatic, normocephalic. Vision and hearing grossly intact Pulm: Symmetrical chest rise. No increase in work of breathing. No respiratory distress. Cardiac: RRR, -mrg. Radial pulses intact and symmetrical. Abdominal: Abdominal binder in place with new diverting colostomy on the left side appropriate stomal output. No evidence of prolapse. Diffuse generalized tenderness. Decreased but present bowel sounds MSK: No edema Skin: No rash or discoloration Results & Data Results & Data Vital Signs (Past 12 Hours) Vital Signs Temp Pulse Resp BP Pulse Ox O2 Del Method 12/16/24 08:21 36.4 C L 82 20 171/96 H 96 Room Air 12/16/24 04:13 36.5 C 97 H 18 179/91 H 97 Room Air Laboratory Results 12/16/24 12/16/24 12/16/24 11:47 07:40 05:45 WBC 11.21 H RBC 3.32 L Hgb 8.6 L Hct 27.9 L MCV 84.0 MCH 25.9 MCHC 30.8 L RDW Std Deviation 43.7 RDW Coeff of Marilin 14.3 Plt Count 410 H MPV 9.2 L Immature Gran % (Auto) 0.6 Neut % (Auto) 84.8 Lymph % (Auto) 7.9 [place] % (Auto) 6.5 Eos % (Auto) 0.0 Baso % (Auto) 0.2 Neut # (Auto) 9.51 H Lymph # (Auto) 0.88 L [place] # (Auto) 0.73 H Eos # (Auto) 0.00 Baso # (Auto) 0.02 Immature Gran # (Auto) 0.07 Sodium 139 Potassium 3.9 Chloride 104 Carbon Dioxide 27 Anion Gap 8 BUN 4 L Creatinine 0.57 L Est Cr Clr Drug Dosing 135.1 eGFR 108.13 BUN/Creatinine Ratio 7.0 L Glucose 147 H POC Glucose 182 H 162 H Calcium 8.3 L Phosphorus 4.0 Magnesium 1.4 L C-Reactive Protein 12.14 H Blood Type Blood Type Recheck Antibody Screen 12/15/24 12/15/24 12/15/24 23:35 21:20 17:53 WBC RBC Hgb Hct MCV MCH MCHC RDW Std Deviation RDW Coeff of Marilin Plt Count MPV Immature Gran % (Auto) Neut % (Auto) Lymph % (Auto) [place] % (Auto) Eos % (Auto) Baso % (Auto) Neut # (Auto) Lymph # (Auto) [place] # (Auto) Eos # (Auto) Baso # (Auto) Immature Gran # (Auto) Sodium Potassium Chloride Carbon Dioxide Anion Gap BUN Creatinine Est Cr Clr Drug Dosing eGFR BUN/Creatinine Ratio Glucose POC Glucose 203 H 231 H 222 H Calcium Phosphorus Magnesium C-Reactive Protein Blood Type Blood Type Recheck Antibody Screen 12/15/24 12/14/24 14:48 05:59 WBC RBC Hgb Hct MCV MCH MCHC RDW Std Deviation RDW Coeff of Marilin Plt Count MPV Immature Gran % (Auto) Neut % (Auto) Lymph % (Auto) [place] % (Auto) Eos % (Auto) Baso % (Auto) Neut # (Auto) Lymph # (Auto) [place] # (Auto) Eos # (Auto) Baso # (Auto) Immature Gran # (Auto) Sodium Potassium Chloride Carbon Dioxide Anion Gap BUN Creatinine Est Cr Clr Drug Dosing eGFR BUN/Creatinine Ratio Glucose POC Glucose Calcium Phosphorus Magnesium C-Reactive Protein Blood Type A Positive Blood Type Recheck A Positive Antibody Screen NEGATIVE PG Care Time/CCT Total # of Minutes Spent Total Time Spent with Patient: Total time spent is greater than 50% in coordination of care (as documented) at patient's floor/unit and/or counseling patient: Coding Level of Care Code 69533 SUB INP/OBS CARE MIN Diagnoses Diverticulitis of large intestine with complication K57.32 Diabetes 1.5, managed as type 1 E13.9"
[2024-12-16] MEDS: INSULIN ASPART PER UNIT CHARGE SC SCH (21:33)
[2024-12-17 07:20] LABS: Hematocrit (blood only) 24.4 % (42.0-52.0); Hemoglobin 7.9 g/dl (14.0-18.0); Immature Granulocytes # (auto) 0.04 K/uL (0.01-0.20); Immature Granulocytes % (auto) 0.4 %; Mean Corpuscular Hemoglobin 27.0 pg (25.0-34.0); Mean Corpuscular Volume 83.3 fL (80.0-100.0); Platelet Count 393 K/uL (130-400); RDW Standard Deviation 43.5 fL (36.4-46.3); Red Blood Count 2.93 M/uL (4.70-6.10); White Blood Count 8.94 K/ul (4.8-10.8)
[2024-12-17 07:39] LABS: RBC Morphology Unremarkable
[2024-12-17 07:53] LABS: Alanine Aminotransferase 12.0 U/L (7-52); Albumin Globulin Ratio 0.9 (0.9-2); Albumin Level 3.0 gm/dl (3.4-5.0); Alkaline Phosphatase 91.0 U/L (34-104); Anion Gap 10.0 (3-11); Bilirubin,Total 0.9 mg/dl (0.2-1.0); Blood Urea Nitrogen 3.0 mg/dl (6-23); Calcium 8.2 mg/dl (8.6-10.3); Carbon Dioxide 26.0 mmol/L (21-32); Chloride 104.0 mmol/L (98-107); Creatinine Clr Calc Pharmacy 124.2 ml/min; Globulin 3.5 gm/dl (2.5-4.0); Glucose 122.0 mg/dl (70-99(Fasting)); Magnesium 1.5 mg/dl (1.7-2.4); Potassium 3.1 mmol/L (3.5-5.1); Sodium 140.0 mmol/L (136-145); Total Protein 6.5 gm/dl (6.0-8.3)
--- NOTE | 2024-12-17 08:13 | Pharmacy Report ---
Pharmacy Glycemic Short Note 2 - Date of Service December 17, 2024 - Glycemic Short BSG Results (Last 24 hours): 12/16/24 12/16/24 12/16/24 07:40 11:47 16:25 Glucose 147 H POC Glucose 182 H 170 H 12/16/24 12/17/24 12/17/24 20:28 05:56 07:15 Glucose 122 H POC Glucose 134 H 139 H OUTPATIENT ANTIDIABETIC REGIMEN: * Lantus 30 units SC daily * insulin lispro 4 units SC ACHS * metformin 1000mg PO BID * HbA1c: 8.4% on 12/12/24 ASSESSMENT: 12/17: * Lorenzo received no insulin yesterday, some due to refusals and some due to controlled BSGs: [phone] mg/dL. * POD #2. Diet advanced to clears but minimal PO intake at this time. Remains on Daptomycin and Zosyn for possible GI infection. * No changes will be made to regimen today. 12/15: * Lorenzo received only 5 units of insulin yesterday (all were bolus). BSGs were [phone]/dL. * Fasting BSG was 127mg/dL this morning. Patient is currently NPO for procedure today. Will continue Lantus scale at HS. * Will continue current bolus insulin regimen without change. 12/12: * Lorenzo is a 64 year old male who was admitted 12/11 for diverticulitis with small perforation of the proximal sigmoid colon. He is a type 1.5 diabetic who is managed as a type 1 and pharmacy has been consulted for glycemic management while he is admitted. * BSG on admit was 116mg/dL and was 124mg/dL. Fasting BSG was 109mg/dL. He is NPO for possible surgical intervention. * A weight based bolus insulin regimen with a stress of 2 was started and a Lantus scale (0,5,or 10 units depending on BSG) was added at HS PLAN FOR INPATIENT GLYCEMIC CONTROL: * Hold outpatient diabetes medications * Basal insulin * Lantus scale SC at HS (0, 5, or 10 units depending on BSG). * Bolus insulin * NovoLog per scale ACHS or Q6hrs while NPO * Goal Range: Low 110 mg/dL - High 140 mg/dL * Correction Factor: 30 mg/dL/unit * Nutritional / Prandial insulin per carb ratio of 1 unit per 12 grams CHO consumed
--- NOTE | 2024-12-17 09:54 | Surgery Progress Note ---
Date of Service December 17, 2024 Assessment & Plan (1) Diverticulitis of large intestine with complication: Plan Postop day 2, laparoscopic Garret's procedure, improving. Have patient out of bed, ambulate, discharge planning, DVT prophylaxis, advance diet as tolerated, continue antibiotics. May Hep-Lock IV fluids when tolerating oral intake, advance to full liquids, replace electrolytes, DC Power. Admission and Anticipated Discharge Date Admission Date: December 11, 2024 Subjective Patient is postop day 2, he does report feeling more tired today, he does report that he got out of bed yesterday. He is tolerating liquids Review of Systems Review of Systems: All systems reviewed & are unremarkable except as noted in HPI & below Physical Exam Constitutional: WD/WN, vitals as above Eyes: PERRL, conjunctivae normal, anicteric sclerae ENMT: external ear and nose normal, oropharynx normal Neck: trachea midline, no thyromegaly Cardiovascular: RRR, no murmur, no edema Rate/Rhythm: regular rate Gastrointestinal (Abdomen): Abdomen is slightly distended, colostomy viable with a small amount of brown liquid in bag and small amount of gas. LETICIA drain with serosanguineous fluid Results & Data Vital Signs (Past 12 Hours) Vital Signs Temp Pulse Pulse Resp BP Pulse Ox O2 Del Method 12/17/24 07:16 36.5 C 75 18 163/88 H 95 Room Air 12/17/24 03:00 36.6 C 76 18 176/86 H 96 Room Air 12/16/24 21:59 36.6 C 77 18 136/86 96 Room Air PG Care Time/CCT Total # of Minutes Spent Total Time Spent with Patient: Total time spent is greater than 50% in coordination of care (as documented) at patient's floor/unit and/or counseling patient: Coding Level of Care Code 21777 Post Operative Follow-Up Diagnoses Diverticulitis of large intestine with complication K57.32
[2024-12-17] MEDS: MAGNESIUM SULFATE / D5W 1 GM/100 ML BAG IV ONE (10:42)
[2024-12-17] MEDS: POTASSIUM CHLORIDE CRTAB 20 MEQ TABCR PO STA (10:42)
--- NOTE | 2024-12-17 11:53 | Hospitalist Progress Note ---
Date of Service December 17, 2024 Assessment & Plan (1) Diverticulitis of large intestine with complication: (2) Diabetes 1.5, managed as type 1: Plan Lorenzo is a 64-year-old man with past medical history of complicated diverticulitis with LLQ IR drain placement x 2 for diverticular abscess, T2DM, dyslipidemia, CAD, OA, tobacco dependence, GERD, and severe protein calorie malnutrition. He returned to the ED with severe abdominal pain x 6 days and has not been out of bed during that timeframe as well. He was admitted for management of his complicated diverticulitis. #Complicated diverticulitis, drain in place -longstanding history of diverticulitis since August of this year. Multiple hospitalizations since then for the same. Had an IR drain placed at [facility] previously then had another IR drain placed at [facility] while admitted here a few weeks ago. 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 Stoma cares and education #VRE -Now present within the wound and abdominal cultures. - Appreciate infectious disease consultation, daptomycin and Zosyn continuing. Will follow serial inflammatory markers and labs - stable trend #Hypokalemia, hypomagnesemia Improved with repletion. Potassium and magnesium both low normal, additional oral supplementation given 12/14 to optimize BMP daily, trend magnesium periodically - potassium 3.1 oral replacement ordered #Elevated BP Normalized with pain control #Anemia | thrombocytosis - B12 and folate WNL last admission Ferritin is elevated however this is likely as an acute phase reaction. TSAT not able to be performed however serum iron is below the limits of detection. He would benefit from Venofer however given active significant infection without source control recommend optimization with blood as needed to transfusion threshold of 7, or 8 if signs of endorgan ischemia, at this time and treated with Venofer once he has had adequate control of his complicated diverticulitis. Serial hemoglobin, down 0.8 units. Will continue to monitor, no evidence of active bleed #DMT1.5 Home regimen includes Lantus 30U AM, lispro, metformin. Last A1c 15.8% in August 2024 - Hold home regimen - SSI. Basal insulin held Pharmacy glycemic management following. Adequate control 12/14-12/17. #CADcontinue atorvastatin, aspirin held #Chronic paincontinue home baclofen. Hold oxycodone with pain control regimen as outlined above VTE PPx: Continue subcu heparin, hold on 12/15 for surgical intervention of his complicated diverticular and fistular disease Admission and Anticipated Discharge Date Admission Date: December 11, 2024 Subjective "had a rough night" patient reports mostly from distractions. Pain has been managed with current regimen. He does experience breakthrough pain at some point. He has been up and about a little bit yesterday. Feeling tired and not very interested in doing much activity today. No significant change in abdominal symptoms. In fact overall improved. No significant change in his appetite. Stoma output has been appropriate. No additional complaints or concerns per patient or nursing staff Physical Exam Physical Exam: General: A&Ox3. NAD. Cooperative. HEENT: Atraumatic, normocephalic. Vision and hearing grossly intact Pulm: Symmetrical chest rise. No increase in work of breathing. No respiratory distress. Cardiac: RRR, -mrg. Radial pulses intact and symmetrical. Abdominal: Abdominal binder in place with new diverting colostomy on the left side appropriate stomal output. Diffuse but overall improved generalized tenderness. Decreased but present bowel sounds MSK: No edema Skin: No rash or discoloration Results & Data Results & Data Vital Signs (Past 12 Hours) Vital Signs Temp Pulse Pulse Resp BP Pulse Ox O2 Del Method 12/17/24 07:16 36.5 C 75 18 163/88 H 95 Room Air 12/17/24 03:00 36.6 C 76 18 176/86 H 96 Room Air Laboratory Results 12/17/24 12/17/24 12/17/24 11:33 07:15 05:56 WBC 8.94 RBC 2.93 L Hgb 7.9 L Hct 24.4 L MCV 83.3 MCH 27.0 MCHC 32.4 RDW Std Deviation 43.5 RDW Coeff of Marilin 14.2 Plt Count 393 MPV 9.4 Immature Gran % (Auto) 0.4 Neut % (Auto) 78.6 Lymph % (Auto) 11.1 [place] % (Auto) 7.6 Eos % (Auto) 2.0 Baso % (Auto) 0.3 Neut # (Auto) 7.02 H Lymph # (Auto) 0.99 L [place] # (Auto) 0.68 H Eos # (Auto) 0.18 Baso # (Auto) 0.03 Immature Gran # (Auto) 0.04 RBC Morphology Unremarkable Sodium 140 Potassium 3.1 L D Chloride 104 Carbon Dioxide 26 Anion Gap 10 BUN 3 L Creatinine 0.62 Est Cr Clr Drug Dosing 124.2 eGFR 105.42 BUN/Creatinine Ratio 4.8 L Glucose 122 H POC Glucose 124 H 139 H Calcium 8.2 L Phosphorus 3.0 D Magnesium 1.5 L Total Bilirubin 0.9 AST 10 L ALT 12 Alkaline Phosphatase 91 C-Reactive Protein 22.80 H Total Protein 6.5 Albumin 3.0 L Globulin 3.5 Albumin/Globulin Ratio 0.9 Procalcitonin 0.38 12/16/24 12/16/24 20:28 16:25 WBC RBC Hgb Hct MCV MCH MCHC RDW Std Deviation RDW Coeff of Marilin Plt Count MPV Immature Gran % (Auto) Neut % (Auto) Lymph % (Auto) [place] % (Auto) Eos % (Auto) Baso % (Auto) Neut # (Auto) Lymph # (Auto) [place] # (Auto) Eos # (Auto) Baso # (Auto) Immature Gran # (Auto) RBC Morphology Sodium Potassium Chloride Carbon Dioxide Anion Gap BUN Creatinine Est Cr Clr Drug Dosing eGFR BUN/Creatinine Ratio Glucose POC Glucose 134 H 170 H Calcium Phosphorus Magnesium Total Bilirubin AST ALT Alkaline Phosphatase C-Reactive Protein Total Protein Albumin Globulin Albumin/Globulin Ratio Procalcitonin PG Care Time/CCT Total # of Minutes Spent Total Time Spent with Patient: Total time spent is greater than 50% in coordination of care (as documented) at patient's floor/unit and/or counseling patient: Coding Level of Care Code 56749 SUB INP/OBS CARE MIN Diagnoses Diverticulitis of large intestine with complication K57.32 Diabetes 1.5, managed as type 1 E13.9
[2024-12-17] MEDS: POTASSIUM CHLORIDE 20 MEQ/15 ML UDC PO SCH (13:53)
[2024-12-17] MEDS: POTASSIUM CHLORIDE CRTAB 20 MEQ TABCR PO SCH (21:23)
[2024-12-18 06:10] LABS: Hematocrit (blood only) 23.8 % (42.0-52.0); Hemoglobin 7.4 g/dl (14.0-18.0); Immature Granulocytes # (auto) 0.04 K/uL (0.01-0.20); Immature Granulocytes % (auto) 0.6 %; Mean Corpuscular Hemoglobin 26.3 pg (25.0-34.0); Mean Corpuscular Volume 84.7 fL (80.0-100.0); Platelet Count 363 K/uL (130-400); RDW Standard Deviation 44.2 fL (36.4-46.3); Red Blood Count 2.81 M/uL (4.70-6.10); White Blood Count 6.16 K/ul (4.8-10.8)
[2024-12-18 06:26] LABS: Alanine Aminotransferase 10.0 U/L (7-52); Albumin Globulin Ratio 0.9 (0.9-2); Albumin Level 2.8 gm/dl (3.4-5.0); Alkaline Phosphatase 82.0 U/L (34-104); Anion Gap 7.0 (3-11); Bilirubin,Total 0.7 mg/dl (0.2-1.0); Blood Urea Nitrogen 4.0 mg/dl (6-23); Calcium 8.1 mg/dl (8.6-10.3); Carbon Dioxide 26.0 mmol/L (21-32); Chloride 107.0 mmol/L (98-107); Creatinine Clr Calc Pharmacy 122.2 ml/min; Globulin 3.2 gm/dl (2.5-4.0); Glucose 110.0 mg/dl (70-99(Fasting)); Magnesium 1.7 mg/dl (1.7-2.4); Potassium 3.3 mmol/L (3.5-5.1); Sodium 140.0 mmol/L (136-145); Total Protein 6.0 gm/dl (6.0-8.3)
[2024-12-18 06:39] LABS: Polychromasia 1+
--- NOTE | 2024-12-18 07:47 | Surgery Progress Note ---
Date of Service December 18, 2024 Assessment & Plan (1) Diverticulitis of large intestine with complication: Plan: POD#3 laparoscopic Garret's procedure WBC 6, Hbg 7.4(7.9), vitals stable he is tolerating a liquid diet and ostomy is functioning, will advance to low fiber Continue daily dressing changes to midline and LLQ wound (old IR drain site). LETICIA drain is serosang, can keep today Continue IV abx while in house Added oral pain meds to regimen to see if we can obtain better pain control that will allow him to move around and work better with PT/OT Wound care on board for ostomy assistance Will likely need placement upon dispo Admission and Anticipated Discharge Date Admission Date: December 11, 2024 Subjective Patient in bed. Reports pain with movement he attributes to a "broken tailbone". He states this makes it hard to work with PT/OT. He is tolerating a liquid diet, no n/v and is hungry for more. Physical Exam Physical Exam: awake/alert, no distress Respiratory: normal respiratory effort Gastrointestinal (Abdomen): Inspection/Auscultation: + abdominal surgical incision (abdominal binder with dressings underneath c/d/i) and + abdominal surgical drain present (serosang); abdomen not distended + ostomy viable with some thin liquid in bag Results & Data Vital Signs (Past 12 Hours) Vital Signs Temp Pulse Resp BP Pulse Ox O2 Del Method 12/17/24 22:33 97.9 F 83 18 150/81 H 96 Room Air 12/17/24 21:30 Room Air PG Care Time/CCT Total # of Minutes Spent Total Time Spent with Patient: Total time spent is greater than 50% in coordination of care (as documented) at patient's floor/unit and/or counseling patient: Coding Level of Care Code 77374 Post Operative Follow-Up Diagnoses Diverticulitis of large intestine with complication K57.32
[2024-12-18] MEDS: CALCIUM GLUCONATE 1,000 MG/60 ML BAG IV STA (09:42)
[2024-12-18] MEDS: POTASSIUM CHLORIDE / WTR 10 MEQ/100 ML PLCT IV SCH (10:09)
--- NOTE | 2024-12-18 13:46 | Hospitalist Progress Note ---
"Date of Service December 18, 2024 Assessment & Plan (1) Diverticulitis of large intestine with complication: (2) Diabetes 1.5, managed as type 1: Plan Lorenzo is a 64-year-old man with past medical history of complicated diverticulitis with LLQ IR drain placement x 2 for diverticular abscess, T2DM, dyslipidemia, CAD, OA, tobacco dependence, GERD, and severe protein calorie malnutrition. He returned to the ED with severe abdominal pain x 6 days and has not been out of bed during that timeframe as well. He was admitted for management of his complicated diverticulitis. #Complicated diverticulitis, drain in place -longstanding history of diverticulitis since August of this year. Multiple hospitalizations since then for the same. Had an IR drain placed at [facility] previously then had another IR drain placed at [facility] while admitted here a few weeks ago. 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 Stoma cares and education - was able to get him to transfer to recliner today, will advance movement as much as he tolerates #VRE -Now present within the wound and abdominal cultures. - stable inflammatory markers recheck with any concerns #Hypokalemia, hypomagnesemia Improved with repletion. Potassium and magnesium both low normal, additional oral supplementation given 12/14 to optimize BMP daily, trend magnesium periodically - potassium 3.1 oral and IV replacement ordered, check in AM #Elevated BP Normalized with pain control #Anemia | thrombocytosis - B12 and folate WNL last admission Ferritin is elevated however this is likely as an acute phase reaction. TSAT not able to be performed however serum iron is below the limits of detection. He would benefit from Venofer however given active significant infection without source control recommend optimization with blood as needed to transfusion threshold of 7, or 8 if signs of endorgan ischemia, at this time and treated with Venofer once he has had adequate control of his complicated diverticulitis. Serial hemoglobin stbale #DMT1.5 Home regimen includes Lantus 30U AM, lispro, metformin. Last A1c 15.8% in August 2024 - Hold home regimen - SSI. Basal insulin held Pharmacy glycemic management following. Adequate control 12/14-12/17. #CADcontinue atorvastatin, aspirin held #Chronic paincontinue home baclofen. Hold oxycodone with pain control regimen as outlined above VTE PPx: Continue subcu heparin, hold on 12/15 for surgical intervention of his complicated diverticular and fistular disease Admission and Anticipated Discharge Date Admission Date: December 11, 2024 Subjective doing okay this morning. Pain and discomfort persist he has been very reluctant to move his anytime he does he has a pain that refers through to his back. Otherwise he has a cough but he is able to clear independently. No fevers chills. Appetite has been low but he has been trying to progress. After some time of discussion with the patient, we are able to negotiate a recliner chair that he was able to sit at the edge of the bed, stand, transfer and sit in the recliner. After 5 or 10 minutes he felt as though he was doing much better, was more distracted and was able to move his legs more participate with nursing. Otherwise stoma output has been appropriate, no other new concerns or events per patient or nursing staff Physical Exam Physical Exam: General: A&Ox3. NAD. Cooperative. HEENT: Atraumatic, normocephalic. Vision and hearing grossly intact Pulm: Symmetrical chest rise. No increase in work of breathing. No respiratory distress. Cardiac: RRR, -mrg. Radial pulses intact and symmetrical. Abdominal: Abdominal binder in place with new diverting colostomy on the left side appropriate stomal output. Diffuse but overall improved generalized tenderness. Decreased but present bowel sounds MSK: No edema Skin: No rash or discoloration Results & Data Results & Data Vital Signs (Past 12 Hours) Vital Signs Temp Pulse Resp BP Pulse Ox O2 Del Method 12/18/24 07:16 36.5 C 65 18 138/82 95 Room Air Laboratory Results 12/18/24 12/18/24 12/18/24 11:14 07:45 05:53 WBC 6.16 RBC 2.81 L Hgb 7.4 L Hct 23.8 L MCV 84.7 MCH 26.3 MCHC 31.1 L RDW Std Deviation 44.2 RDW Coeff of Marilin 14.6 H Plt Count 363 MPV 8.9 L Immature Gran % (Auto) 0.6 Neut % (Auto) 68.4 Lymph % (Auto) 17.0 [place] % (Auto) 7.6 Eos % (Auto) 5.8 Baso % (Auto) 0.6 Neut # (Auto) 4.20 Lymph # (Auto) 1.05 L [place] # (Auto) 0.47 Eos # (Auto) 0.36 Baso # (Auto) 0.04 Immature Gran # (Auto) 0.04 Polychromasia 1+ Sodium 140 Potassium 3.3 L Chloride 107 Carbon Dioxide 26 Anion Gap 7 BUN 4 L Creatinine 0.63 Est Cr Clr Drug Dosing 122.2 eGFR 104.91 BUN/Creatinine Ratio 6.3 L Glucose 110 H POC Glucose 96 132 H Calcium 8.1 L Phosphorus 3.3 Magnesium 1.7 Total Bilirubin 0.7 AST 9 L ALT 10 Alkaline Phosphatase 82 C-Reactive Protein 14.92 H Total Protein 6.0 Albumin 2.8 L Globulin 3.2 Albumin/Globulin Ratio 0.9 Procalcitonin 0.40 12/17/24 12/17/24 20:53 16:31 WBC RBC Hgb Hct MCV MCH MCHC RDW Std Deviation RDW Coeff of Marilin Plt Count MPV Immature Gran % (Auto) Neut % (Auto) Lymph % (Auto) [place] % (Auto) Eos % (Auto) Baso % (Auto) Neut # (Auto) Lymph # (Auto) [place] # (Auto) Eos # (Auto) Baso # (Auto) Immature Gran # (Auto) Polychromasia Sodium Potassium Chloride Carbon Dioxide Anion Gap BUN Creatinine Est Cr Clr Drug Dosing eGFR BUN/Creatinine Ratio Glucose POC Glucose 113 H 137 H Calcium Phosphorus Magnesium Total Bilirubin AST ALT Alkaline Phosphatase C-Reactive Protein Total Protein Albumin Globulin Albumin/Globulin Ratio Procalcitonin PG Care Time/CCT Total # of Minutes Spent Total Time Spent with Patient: Total time spent is greater than 50% in coordination of care (as documented) at patient's floor/unit and/or counseling patient: Coding Level of Care Code 84913 SUB INP/OBS CARE MIN Diagnoses Diverticulitis of large intestine with complication K57.32 Diabetes 1.5, managed as type 1 E13.9"
[2024-12-19 06:44] LABS: Hematocrit (blood only) 27.5 % (42.0-52.0); Hemoglobin 8.5 g/dl (14.0-18.0); Immature Granulocytes # (auto) 0.04 K/uL (0.01-0.20); Immature Granulocytes % (auto) 0.6 %; Mean Corpuscular Hemoglobin 26.4 pg (25.0-34.0); Mean Corpuscular Volume 85.4 fL (80.0-100.0); Platelet Count 449 K/uL (130-400); RDW Standard Deviation 45.2 fL (36.4-46.3); Red Blood Count 3.22 M/uL (4.70-6.10); White Blood Count 6.27 K/ul (4.8-10.8)
[2024-12-19 06:55] LABS: Anion Gap 8.0 (3-11); Blood Urea Nitrogen 3.0 mg/dl (6-23); Calcium 8.8 mg/dl (8.6-10.3); Carbon Dioxide 25.0 mmol/L (21-32); Chloride 107.0 mmol/L (98-107); Creatinine Clr Calc Pharmacy 122.2 ml/min; Glucose 112.0 mg/dl (70-99(Fasting)); Potassium 3.8 mmol/L (3.5-5.1); Sodium 140.0 mmol/L (136-145)
--- NOTE | 2024-12-19 09:26 | Surgery Progress Note ---
Date of Service December 19, 2024 Assessment & Plan (1) Diverticulitis of large intestine with complication: Plan: POD#4 s/p laparoscopic Garret's procedure by Dr. Gomez WBC 6.2, afebrile, VSS Tolerating low fiber without issues of N/V Continue daily dressing changes to midline and LLQ wound (old IR drain site). LETICIA drain is serosang, will plan to d/c today Continue IV abx while in house, and can switch to oral at time of D/C if needed. Would recommend a total of 1 week worth of abx from day of surgery. Continue pain regimen and encourage OOB to chair while awake, and aggressive PT/OT Wound care on board for ostomy assistance Will likely need placement upon dispo Admission and Anticipated Discharge Date Admission Date: December 11, 2024 Subjective Patient in bed during exam this morning. States he is frustrated with how much staff is coming in and out of his room. Continues to report back pain with movement that he attributes to his broken back which makes it difficult for him to get OOB and work with PT/OT. He is tolerating a diet thus far without any nausea or vomiting. However he states his appetite is low due to having to look at his ostomy site. Physical Exam Constitutional: WD/WN, vitals as above Respiratory: normal respiratory effort, lungs clear to auscultation Cardiovascular: Rate/Rhythm: regular rate Gastrointestinal (Abdomen): Abdominal binder removed for comfort this morning during exam. Incisions with dressings in place and are c/d/i. LETICIA drain in place with serosang output (10cc recorded). +ostomy viable with some thin liquid/gas in bag Results & Data Vital Signs (Past 12 Hours) Vital Signs Temp Pulse Resp BP Pulse Ox O2 Del Method 12/19/24 07:26 36.8 C 90 18 165/91 H 98 Room Air 12/18/24 22:33 36.3 C L 71 18 174/92 H 97 Room Air 12/18/24 21:56 Room Air PG Care Time/CCT Total # of Minutes Spent Total Time Spent with Patient: Total time spent is greater than 50% in coordination of care (as documented) at patient's floor/unit and/or counseling patient: Coding [place] [address] Post Operative Follow-Up Patient Type Established History Problem Focused Exam Problem Focused Medical Decision Making Straight Forward Diagnoses Diverticulitis of large intestine with complication K57.32
--- NOTE | 2024-12-19 09:39 | Pharmacy Report ---
Pharmacy Glycemic Short Note 2 - Date of Service December 19, 2024 - Glycemic Short BSG Results (Last 24 hours): 12/18/24 12/18/24 12/18/24 11:14 16:05 20:59 Glucose POC Glucose 96 112 H 112 H 12/19/24 12/19/24 06:00 07:42 Glucose 112 H POC Glucose 144 H OUTPATIENT ANTIDIABETIC REGIMEN: * Lantus 30 units SC daily * insulin lispro 4 units SC ACHS * metformin 1000mg PO BID * HbA1c: 8.4% on 12/12/24 ASSESSMENT: 12/19: * Lorenzo has required very minimal insulin during this admission. He only received 2 units of insulin yesterday, both were bolus insulin. BSGS were [phone]/dL. Trialing removing the carb ratio from the bolus insulin (started at lunch time yesterday) as only 2 units received at breakfast dropped his blood glucose below goal. * Fasting BSG was 144mg/dL this morning. Will add back Lantus scale at HS incase his BSG rises through the evening without the carb coverage. 12/17: * Lorenzo received no insulin yesterday, some due to refusals and some due to controlled BSGs: [phone] mg/dL. * POD #2. Diet advanced to clears but minimal PO intake at this time. Remains on Daptomycin and Zosyn for possible GI infection. * No changes will be made to regimen today. 12/15: * Lorenzo received only 5 units of insulin yesterday (all were bolus). BSGs were [phone]/dL. * Fasting BSG was 127mg/dL this morning. Patient is currently NPO for procedure today. Will continue Lantus scale at HS. * Will continue current bolus insulin regimen without change. 12/12: * Lorenzo is a 64 year old male who was admitted 12/11 for diverticulitis with small perforation of the proximal sigmoid colon. He is a type 1.5 diabetic who is managed as a type 1 and pharmacy has been consulted for glycemic management while he is admitted. * BSG on admit was 116mg/dL and was 124mg/dL. Fasting BSG was 109mg/dL. He is NPO for possible surgical intervention. * A weight based bolus insulin regimen with a stress of 2 was started and a Lantus scale (0,5,or 10 units depending on BSG) was added at HS PLAN FOR INPATIENT GLYCEMIC CONTROL: * Hold outpatient diabetes medications * Basal insulin * Lantus scale at HS (0,5, or 10 units depending on BSG) * Bolus insulin * NovoLog per scale ACHS or Q6hrs while NPO * Goal Range: Low 110 mg/dL - High 140 mg/dL * Correction Factor: 30 mg/dL/unit * Nutritional / Prandial insulin per carb ratio--hold
--- NOTE | 2024-12-19 14:47 | Hospitalist Progress Note ---
"Date of Service December 19, 2024 Assessment & Plan (1) Diverticulitis of large intestine with complication: (2) Diabetes 1.5, managed as type 1: Plan Lorenzo is a 64-year-old man with past medical history of complicated diverticulitis with LLQ IR drain placement x 2 for diverticular abscess, T2DM, dyslipidemia, CAD, OA, tobacco dependence, GERD, and severe protein calorie malnutrition. He returned to the ED with severe abdominal pain x 6 days and has not been out of bed during that timeframe as well. He was admitted for management of his complicated diverticulitis. #Complicated diverticulitis, drain in place -longstanding history of diverticulitis since August of this year. Multiple hospitalizations since then for the same. Had an IR drain placed at [facility] previously then had another IR drain placed at [facility] while admitted here a few weeks ago. 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 Stoma cares and education - actually getting up into the chair, starting to stand and do transfers more independently. #Postoperative pain - Tylenol for basic pain, 5 mg oxycodone for moderate pain, 10 mg oxycodone for severe pain with breakthrough with 0.5 mg Dilaudid IV every 3 hours as needed - reivewed with staff to maintain current escalation, will continue to reinforce the necessity of movement as above #VRE -Now present within the wound and abdominal cultures. - stable inflammatory markers recheck with any concerns #Hypokalemia, hypomagnesemia Improved with repletion. Potassium and magnesium both low normal, additional oral supplementation given 12/14 to optimize BMP daily, trend magnesium periodically - normalized to 3.8 will continue oral supplement #Elevated BP Normalized with pain control #Anemia | thrombocytosis - B12 and folate WNL last admission Ferritin is elevated however this is likely as an acute phase reaction. TSAT not able to be performed however serum iron is below the limits of detection. He would benefit from Venofer however given active significant infection without source control recommend optimization with blood as needed to transfusion threshold of 7, or 8 if signs of endorgan ischemia, at this time and treated with Venofer once he has had adequate control of his complicated diverticulitis. Serial hemoglobin stbale #DMT1.5 Home regimen includes Lantus 30U AM, lispro, metformin. Last A1c 15.8% in August 2024 - Hold home regimen - SSI. Basal insulin held Pharmacy glycemic management following. Adequate control 12/14-12/17. #CADcontinue atorvastatin, aspirin held #Chronic paincontinue home baclofen. Hold oxycodone with pain control regimen as outlined above VTE PPx: Continue subcu heparin, hold on 12/15 for surgical intervention of his complicated diverticular and fistular disease Admission and Anticipated Discharge Date Admission Date: December 11, 2024 Subjective Doing okay this morning. He is as opinionated and vocal as usual. He has been quite thankful for nurses at times. He remains redirectable. Has made general progress in terms of his movement. Appetite has been very low but limited but is progressing. His biggest complaint is the distribution and worsening of the pain when he sits up feels a very lower pelvic pressure that radiates through to the back. The Dilaudid has been helping he has not been using the oxycodone is much. We discussed a more appropriate pain management regimen to get more long- acting relief of all medications using Dilaudid for breakthrough. He is amenable to proceed with the plan. Otherwise no new events or concerns Physical Exam Physical Exam: General: A&Ox3. NAD. Cooperative. HEENT: Atraumatic, normocephalic. Vision and hearing grossly intact Pulm: Symmetrical chest rise. No increase in work of breathing. No respiratory distress. Cardiac: RRR, -mrg. Radial pulses intact and symmetrical. Abdominal: Abdominal binder in place with new diverting colostomy on the left side appropriate stomal output. Diffuse but overall improved generalized tenderness. Decreased but present bowel sounds MSK: No edema Skin: No rash or discoloration Results & Data Results & Data Vital Signs (Past 12 Hours) Vital Signs Temp Pulse Resp BP Pulse Ox O2 Del Method 12/19/24 07:26 36.8 C 90 18 165/91 H 98 Room Air Laboratory Results 12/19/24 12/19/24 12/19/24 11:08 07:42 06:00 WBC 6.27 RBC 3.22 L Hgb 8.5 L Hct 27.5 L MCV 85.4 MCH 26.4 MCHC 30.9 L RDW Std Deviation 45.2 RDW Coeff of Marilin 14.8 H Plt Count 449 H MPV 9.0 L Immature Gran % (Auto) 0.6 Neut % (Auto) 62.0 Lymph % (Auto) 21.5 [place] % (Auto) 7.0 Eos % (Auto) 8.1 Baso % (Auto) 0.8 Neut # (Auto) 3.88 Lymph # (Auto) 1.35 Mower # (Auto) 0.44 Eos # (Auto) 0.51 H Baso # (Auto) 0.05 Immature Gran # (Auto) 0.04 Sodium 140 Potassium 3.8 Chloride 107 Carbon Dioxide 25 Anion Gap 8 BUN 3 L Creatinine 0.63 Est Cr Clr Drug Dosing 122.2 eGFR 104.91 BUN/Creatinine Ratio 4.8 L Glucose 112 H POC Glucose 116 H 144 H Calcium 8.8 Phosphorus 3.7 C-Reactive Protein 7.99 H 12/18/24 12/18/24 20:59 16:05 WBC RBC Hgb Hct MCV MCH MCHC RDW Std Deviation RDW Coeff of Marilin Plt Count MPV Immature Gran % (Auto) Neut % (Auto) Lymph % (Auto) [place] % (Auto) Eos % (Auto) Baso % (Auto) Neut # (Auto) Lymph # (Auto) [place] # (Auto) Eos # (Auto) Baso # (Auto) Immature Gran # (Auto) Sodium Potassium Chloride Carbon Dioxide Anion Gap BUN Creatinine Est Cr Clr Drug Dosing eGFR BUN/Creatinine Ratio Glucose POC Glucose 112 H 112 H Calcium Phosphorus C-Reactive Protein PG Care Time/CCT Total # of Minutes Spent Total Time Spent with Patient: Total time spent is greater than 50% in coordination of care (as documented) at patient's floor/unit and/or counseling patient: Coding Level of Care Code 75189 SUB INP/OBS CARE MIN Diagnoses Diverticulitis of large intestine with complication K57.32 Diabetes 1.5, managed as type 1 E13.9"
[2024-12-19] MEDS: HYDROmorphone INJ 0.5 MG/0.5 ML SYR IV PRN (17:18)
[2024-12-19] MEDS: LANTUS PER UNIT CHARGE SC SCH (21:43)
[2024-12-20 08:33] LABS: Hematocrit (blood only) 25.7 % (42.0-52.0); Hemoglobin 8.0 g/dl (14.0-18.0); Immature Granulocytes # (auto) 0.07 K/uL (0.01-0.20); Immature Granulocytes % (auto) 1.3 %; Mean Corpuscular Hemoglobin 26.3 pg (25.0-34.0); Mean Corpuscular Volume 84.5 fL (80.0-100.0); Platelet Count 401 K/uL (130-400); RDW Standard Deviation 45.7 fL (36.4-46.3); Red Blood Count 3.04 M/uL (4.70-6.10); White Blood Count 5.36 K/ul (4.8-10.8)
[2024-12-20 08:49] LABS: Anion Gap 7.0 (3-11); Blood Urea Nitrogen 5.0 mg/dl (6-23); Calcium 8.6 mg/dl (8.6-10.3); Carbon Dioxide 26.0 mmol/L (21-32); Chloride 108.0 mmol/L (98-107); Creatinine Clr Calc Pharmacy 122.2 ml/min; Glucose 130.0 mg/dl (70-99(Fasting)); Potassium 3.7 mmol/L (3.5-5.1); Sodium 141.0 mmol/L (136-145)
--- NOTE | 2024-12-20 09:46 | Surgery Progress Note ---
Date of Service December 20, 2024 Assessment & Plan (1) Diverticulitis of large intestine with complication: Plan: POD# s/p laparoscopic Garret's procedure by Dr. Gomez Afebrile, VSS Tolerating low fiber without issues of N/V Continue daily dressing changes to midline and LLQ wound (old IR drain site). Continue IV abx while in house, and can switch to oral at time of D/C if needed. Would recommend a total of 1 week worth of abx from day of surgery. Continue pain regimen and encourage OOB to chair while awake, and aggressive PT/OT On SQ Heparin. Wound care on board for ostomy assistance Will likely need placement upon discharge Patient seen and examined with Dr. Hanson. Admission and Anticipated Discharge Date Admission Date: December 11, 2024 Supervising Physician Co-Signing Physician Notes I have seen and examined this patient with the surgical PA this am. I agree with this plan. Subjective Patient is awake and alert- resting in bed. He does continue to report that he has abdominal pain and is requesting pain medication. Medical team has switched him over to primarily PO pain medication with IV pain meds for breakthrough pain. Patient reports that he has had some stool and gas in his ostomy. He is tolerating low fiber diet. Physical Exam Constitutional: WD/WN, vitals as above Respiratory: normal respiratory effort, lungs clear to auscultation Cardiovascular: Rate/Rhythm: regular rate Gastrointestinal (Abdomen): Incisions with dressings in place and are c/d/i. LETICIA drain removed yesterday. +ostomy viable with some thin liquid/gas in bag Results & Data Vital Signs (Past 12 Hours) Vital Signs Temp Pulse Resp BP Pulse Ox O2 Del Method 12/20/24 07:19 36.6 C 156 H 18 150/81 H 90 Room Air PG Care Time/CCT Total # of Minutes Spent Total Time Spent with Patient: Total time spent is greater than 50% in coordination of care (as documented) at patient's floor/unit and/or counseling patient: Coding Level of Care Code 97347 Post Operative Follow-Up Diagnoses Diverticulitis of large intestine with complication K57.32
--- NOTE | 2024-12-20 12:40 | Hospitalist Progress Note ---
"Date of Service December 20, 2024 Assessment & Plan (1) Diverticulitis of large intestine with complication: (2) Diabetes 1.5, managed as type 1: Plan Lorenzo is a 64-year-old man with past medical history of complicated diverticulitis with LLQ IR drain placement x 2 for diverticular abscess, T2DM, dyslipidemia, CAD, OA, tobacco dependence, GERD, and severe protein calorie malnutrition. He returned to the ED with severe abdominal pain x 6 days and has not been out of bed during that timeframe as well. He was admitted for management of his complicated diverticulitis. #Complicated diverticulitis, drain in place -longstanding history of diverticulitis since August of this year. Multiple hospitalizations since then for the same. Had an IR drain placed at [facility] previously then had another IR drain placed at [facility] while admitted here a few weeks ago. 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 Stoma cares and education - Barriers to him advancing his physical activity appear to be more cognitive. He seems to perseverate on perceived barriers to movement rather than actually participating with therapy and being up in the chair. Cautioned the patient in regards to delaying this advancement as it would likely lead to complications with the return of his bowel function and other concerns. He is far enough out we will start DVT prophylaxis. He agrees that with adequate pain control and timing of his doses that he will do his best to participate, at least be up in the chair the goal is to walk to the end of the hallway by the end of the day #Sacral Pain - is a new pain for him the last couple of days only present when sitting or active. Not present when walking. States that sharp in nature at times feels as though it is radiating around from the side of the abdomen. It goes away completely at rest only when he is sitting upright. Will add gabapentin to his current regimen - transition towards an oral pain regimen as started yesterday #Postoperative pain - Tylenol for basic pain, 5 mg oxycodone for moderate pain, 10 mg oxycodone for severe pain with breakthrough with 0.5 mg Dilaudid IV every 3 hours as needed - reivewed with staff to maintain current escalation, will continue to reinforce the necessity of movement as above #VRE -Now present within the wound and abdominal cultures. - stable inflammatory markers recheck with any concerns #Hypokalemia, hypomagnesemia Improved with repletion. Potassium and magnesium both low normal, additional oral supplementation given 12/14 to optimize BMP daily, trend magnesium periodically - normalized to 3.8 will continue oral supplement #Elevated BP Normalized with pain control #Anemia | thrombocytosis - B12 and folate WNL last admission Ferritin is elevated however this is likely as an acute phase reaction. TSAT not able to be performed however serum iron is below the limits of detection. H e would benefit from Venofer however given active significant infection without source control recommend optimization with blood as needed to transfusion threshold of 7, or 8 if signs of endorgan ischemia, at this time and treated with Venofer once he has had adequate control of his complicated diverticulitis. Serial hemoglobin stbale #DMT1.5 Home regimen includes Lantus 30U AM, lispro, metformin. Last A1c 15.8% in August 2024 - Hold home regimen - SSI. Basal insulin held Pharmacy glycemic management following. Adequate control 12/14-12/20. #CADcontinue atorvastatin, aspirin held #Chronic paincontinue home baclofen. Hold oxycodone with pain control regimen as outlined above VTE PPx: Continue subcu heparin, hold on 12/15 for surgical intervention of his complicated diverticular and fistular disease Admission and Anticipated Discharge Date Admission Date: December 11, 2024 Subjective remains somewhat difficult to communicate with directly. He is very tangential and flighty in his thinking. We discussed overall his pain control states he is still having the quite severe sacral pain when he tries to sit up although it is self-limited. He was doing well in the recliner chair but that has been removed. He has been trying to take more orally but only limited amounts. Seems to perseverate on the his expectation that he will not do well rather than actually participating with movement and therapy. Endorses small to moderate amount of flatus. No significant changes in abdominal pain or generalized signs of illness. Physical Exam Physical Exam: General: A&Ox3. NAD. Cooperative. HEENT: Atraumatic, normocephalic. Vision and hearing grossly intact Pulm: Symmetrical chest rise. No increase in work of breathing. No respiratory distress. Cardiac: RRR, -mrg. Radial pulses intact and symmetrical. Abdominal: Abdominal binder in place with new diverting colostomy on the left side appropriate low volume stomal output. Diffuse but overall improved generalized tenderness. Decreased but present bowel sounds MSK: No edema Skin: No rash or discoloration Results & Data Results & Data Vital Signs (Past 12 Hours) Vital Signs Temp Pulse Resp BP Pulse Ox O2 Del Method 12/20/24 07:19 36.6 C 156 H 18 150/81 H 90 Room Air Laboratory Results 12/20/24 12/20/24 12/20/24 11:23 08:15 07:41 WBC 5.36 RBC 3.04 L Hgb 8.0 L Hct 25.7 L MCV 84.5 MCH 26.3 MCHC 31.1 L RDW Std Deviation 45.7 RDW Coeff of Marilin 15.4 H Plt Count 401 H MPV 8.7 L Immature Gran % (Auto) 1.3 Neut % (Auto) 57.2 Lymph % (Auto) 23.5 [place] % (Auto) 9.1 Eos % (Auto) 8.0 Baso % (Auto) 0.9 Neut # (Auto) 3.06 Lymph # (Auto) 1.26 [place] # (Auto) 0.49 Eos # (Auto) 0.43 Baso # (Auto) 0.05 Immature Gran # (Auto) 0.07 Sodium 141 Potassium 3.7 Chloride 108 H Carbon Dioxide 26 Anion Gap 7 BUN 5 L Creatinine 0.63 Est Cr Clr Drug Dosing 122.2 eGFR 104.91 BUN/Creatinine Ratio 7.9 L Glucose 130 H POC Glucose 153 H 136 H Calcium 8.6 12/19/24 12/19/24 20:47 16:19 WBC RBC Hgb Hct MCV MCH MCHC RDW Std Deviation RDW Coeff of Marilin Plt Count MPV Immature Gran % (Auto) Neut % (Auto) Lymph % (Auto) [place] % (Auto) Eos % (Auto) Baso % (Auto) Neut # (Auto) Lymph # (Auto) [place] # (Auto) Eos # (Auto) Baso # (Auto) Immature Gran # (Auto) Sodium Potassium Chloride Carbon Dioxide Anion Gap BUN Creatinine Est Cr Clr Drug Dosing eGFR BUN/Creatinine Ratio Glucose POC Glucose 180 H 172 H Calcium PG Care Time/CCT Total # of Minutes Spent Total Time Spent with Patient: Total time spent is greater than 50% in coordination of care (as documented) at patient's floor/unit and/or counseling patient: Coding Level of Care Code 61485 SUB INP/OBS CARE 2/35MIN Diagnoses Diverticulitis of large intestine with complication K57.32 Diabetes 1.5, managed as type 1 E13.9"
[2024-12-20] MEDS: GABAPENTIN 100 MG CAP PO SCH (15:19)
[2024-12-20] MEDS: LANTUS PER UNIT CHARGE SC SCH (21:06)
--- NOTE | 2024-12-21 11:14 | Surgery Progress Note ---
<Statement entered by Marina Hanson DO - 12/21/24 11:27> I have seen and examined this patient with the surgical PA and I agree with this plan Date of Service December 21, 2024 Assessment & Plan (1) Diverticulitis of large intestine with complication: Plan: POD#6 s/p laparoscopic Garret's procedure by Dr. Gomez Afebrile, VSS Tolerating low fiber without issues of N/V His ostomy output is being monitored as appears a bit less than prior Continue daily dressing changes to midline and LLQ wound (old IR drain site). Continue IV abx while in house, and can switch to oral at time of D/C if needed. Would recommend a total of 1 week worth of abx from day of surgery. Continue pain regimen and encourage OOB to chair while awake, and aggressive PT/OT On SQ Heparin. Wound care on board for ostomy assistance Will likely need placement upon discharge Admission and Anticipated Discharge Date Admission Date: December 11, 2024 Subjective patient doing okay. reports small amount of flatus from ostomy now and then. maybe decrease in stool output from ostomy. pain otherwise controlled. he is on a diet and taking it slow. Physical Exam Physical Exam: awake/alert, no distress Respiratory: normal respiratory effort on room air Gastrointestinal (Abdomen): Percussion/Palpation: + abdomen tender (hannah incisional discomfort noted) and abdomen soft incision c/d/i with low midline natalie. ostomy viable, very small amount of thin liquid in bag Results & Data Vital Signs (Past 12 Hours) Vital Signs Temp Pulse Resp BP Pulse Ox O2 Del Method 12/21/24 07:00 97.9 F 79 19 143/86 H 94 Room Air 12/21/24 02:24 98.1 F 85 16 133/81 98 Room Air PG Care Time/CCT Total # of Minutes Spent Total Time Spent with Patient: Total time spent is greater than 50% in coordination of care (as documented) at patient's floor/unit and/or counseling patient: Coding Level of Care Code 58741 Post Operative Follow-Up Diagnoses Diverticulitis of large intestine with complication K57.32
--- NOTE | 2024-12-21 12:23 | Hospitalist Progress Note ---
Date of Service December 21, 2024 Assessment & Plan (1) Diverticulitis of large intestine with complication: (2) Diabetes 1.5, managed as type 1: Plan Lorenzo is a 64-year-old man with past medical history of complicated diverticulitis with LLQ IR drain placement x 2 for diverticular abscess, T2DM, dyslipidemia, CAD, OA, tobacco dependence, GERD, and severe protein calorie malnutrition. He returned to the ED with severe abdominal pain x 6 days and has not been out of bed during that timeframe as well. He was admitted for management of his complicated diverticulitis. #Complicated diverticulitis, drain in place -longstanding history of diverticulitis since August of this year. Multiple hospitalizations since then for the same. Had an IR drain placed at [facility] previously then had another IR drain placed at [facility] while admitted here a few weeks ago. 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 Stoma cares and education - Barriers to him advancing his physical activity appear to be more cognitive. He seems to perseverate on perceived barriers to movement rather than actually participating with therapy and being up in the chair. Cautioned the patient in regards to delaying this advancement as it would likely lead to complications with the return of his bowel function and other concerns. He is far enough out we will start DVT prophylaxis. He agrees that with adequate pain control and timing of his doses that he will do his best to participate, at least be up in the chair the goal is to walk to the end of the hallway by the end of the day #Sacral Pain - is a new pain for him the last couple of days only present when sitting or active. Not present when walking. States that sharp in nature at times feels as though it is radiating around from the side of the abdomen. It goes away completely at rest only when he is sitting upright. Will add gabapentin to his current regimen - not unexpected in the clinical course of postoperative pain. Overall no improvement in function and pain is managed with current regimen #Postoperative pain - Tylenol for basic pain, 5 mg oxycodone for moderate pain, 10 mg oxycodone for severe pain with breakthrough with 0.5 mg Dilaudid IV every 3 hours as needed - reivewed with staff to maintain current escalating regimen, will continue to reinforce the necessity of movement as above - he agrees that he will get up and about walk short distances in the hallway more frequently rather than fewer long distance efforts #VRE -Now present within the wound and abdominal cultures. - stable inflammatory markers recheck with any concerns #Hypokalemia, hypomagnesemia Improved with repletion. Potassium and magnesium both low normal, additional oral supplementation given 12/14 to optimize BMP daily, trend magnesium periodically - normalized to 3.8 will continue oral supplement #Elevated BP Normalized with pain control #Anemia | thrombocytosis - B12 and folate WNL last admission Ferritin is elevated however this is likely as an acute phase reaction. TSAT not able to be performed however serum iron is below the limits of detection. He would benefit from Venofer however given active significant infection without source control recommend optimization with blood as needed to transfusion threshold of 7, or 8 if signs of endorgan ischemia, at this time and treated with Venofer once he has had adequate control of his complicated diverticulitis. Serial hemoglobin stbale #DMT1.5 Home regimen includes Lantus 30U AM, lispro, metformin. Last A1c 15.8% in August 2024 - Hold home regimen - SSI. Basal insulin held Pharmacy glycemic management following. Adequate control 12/14-12/20. #CADcontinue atorvastatin, aspirin held #Chronic paincontinue home baclofen. Hold oxycodone with pain control regimen as outlined above VTE PPx: Continue subcu heparin, hold on 12/15 for surgical intervention of his complicated diverticular and fistular disease Admission and Anticipated Discharge Date Admission Date: December 11, 2024 Subjective doing okay this morning. Reports an increase in generalized pain specifically around the lower abdomen and back. No change in the character or distribution. States that he did up and walk the halls around 2 AM last night and overall that went pretty well but he thinks it was "too much". He is willing to continue to willing to get up to do transfers and shorter laps within the hallway over the short-term. We discussed timing of his pain medications relation to his activity. Otherwise he still endorses a small amount of flatus. He had a limited amount of stool output from the stoma but no increasing abdominal distention or pain Physical Exam Physical Exam: General: A&Ox3. NAD. Cooperative. HEENT: Atraumatic, normocephalic. Vision and hearing grossly intact Pulm: Symmetrical chest rise. No increase in work of breathing. No respiratory distress. Cardiac: RRR, -mrg. Radial pulses intact and symmetrical. Abdominal: Abdominal binder in place with new diverting colostomy on the left side appropriate low volume stomal output. Diffuse but overall improved generalized tenderness. Decreased but present bowel sounds MSK: No edema Skin: No rash or discoloration Results & Data Results & Data Vital Signs (Past 12 Hours) Vital Signs Temp Pulse Resp BP Pulse Ox O2 Del Method 12/21/24 07:00 36.6 C 79 19 143/86 H 94 Room Air 12/21/24 02:24 36.7 C 85 16 133/81 98 Room Air Laboratory Results 12/21/24 12/21/24 12/20/24 11:30 07:11 20:59 POC Glucose 128 H 159 H 134 H 12/20/24 16:08 POC Glucose 140 H PG Care Time/CCT Total # of Minutes Spent Total Time Spent with Patient: Total time spent is greater than 50% in coordination of care (as documented) at patient's floor/unit and/or counseling patient: Coding Level of Care Code 77329 SUB INP/OBS CARE 235MIN Diagnoses Diverticulitis of large intestine with complication K57.32 Diabetes 1.5, managed as type 1 E13.9
[2024-12-21] MEDS ORDERED: ENOXAPARIN 0.5 MG/KG SQ SCH (12:30)
--- NOTE | 2024-12-22 09:08 | Surgery Progress Note ---
Date of Service December 22, 2024 Assessment & Plan (1) Diverticulitis of large intestine with complication: (2) Abscess of groin, left: Plan Improving, postop day 7 from laparoscopic hand-assisted Gage's procedure for perforated diverticulitis with complication. Patient is doing well, recommend stopping antibiotics today, discharge planning stable from surgery standpoint for discharge and follow-up. Admission and Anticipated Discharge Date Admission Date: December 11, 2024 Subjective Patient complaining of having to cough and having abdominal pain when he coughs, but is working on splinting by holding a pillow to his abdomen. Has been ambulating more. Tolerating oral intake. Review of Systems Review of Systems: All systems reviewed & are unremarkable except as noted in HPI & below Physical Exam Constitutional: WD/WN, vitals as above Eyes: PERRL, conjunctivae normal, anicteric sclerae Respiratory: Normal respiratory effort Gastrointestinal (Abdomen): Soft, slightly distended, ostomy viable and healthy with a small amount of stool and gas in bag, lower midline incision healing well Results & Data Vital Signs (Past 12 Hours) Vital Signs Temp Pulse Resp BP Pulse Ox O2 Del Method 12/22/24 07:52 Room Air 12/22/24 07:08 36.5 C 81 18 124/72 92 Room Air PG Care Time/CCT Total # of Minutes Spent Total Time Spent with Patient: Total time spent is greater than 50% in coordination of care (as documented) at patient's floor/unit and/or counseling patient: Coding Level of Care Code 38709 Post Operative Follow-Up Diagnoses Diverticulitis of large intestine with complication K57.32 Abscess of groin, left L02.214
[2024-12-22 10:04] LABS: Hematocrit (blood only) 28.0 % (42.0-52.0); Hemoglobin 8.6 g/dl (14.0-18.0); Mean Corpuscular Hemoglobin 26.9 pg (25.0-34.0); Mean Corpuscular Volume 87.5 fL (80.0-100.0); Platelet Count 448 K/uL (130-400); RDW Standard Deviation 49.1 fL (36.4-46.3); Red Blood Count 3.20 M/uL (4.70-6.10); White Blood Count 6.06 K/ul (4.8-10.8)
[2024-12-22 10:24] LABS: Anion Gap 9.0 (3-11); Blood Urea Nitrogen 6.0 mg/dl (6-23); Calcium 9.4 mg/dl (8.6-10.3); Carbon Dioxide 26.0 mmol/L (21-32); Chloride 104.0 mmol/L (98-107); Creatinine Clr Calc Pharmacy 87.0 ml/min; Glucose 147.0 mg/dl (70-99(Fasting)); Magnesium 1.8 mg/dl (1.7-2.4); Potassium 4.1 mmol/L (3.5-5.1); Sodium 139.0 mmol/L (136-145)
[2024-12-22] MEDS ORDERED: IBUPROFEN 200 MG TAB PO PRN (16:33)
--- NOTE | 2024-12-22 19:08 | Hospitalist Progress Note ---
"Date of Service December 22, 2024 Assessment & Plan (1) Diverticulitis of large intestine with complication: (2) Diabetes 1.5, managed as type 1: Plan Lorenzo is a 64-year-old man with past medical history of complicated diverticulitis with LLQ IR drain placement x 2 for diverticular abscess, T2DM, dyslipidemia, CAD, OA, tobacco dependence, GERD, and severe protein calorie malnutrition. He returned to the ED with severe abdominal pain x 6 days and has not been out of bed during that timeframe as well. He was admitted for management of his complicated diverticulitis. #Complicated diverticulitis, drain in place - longstanding history of diverticulitis since August of this year. Multiple hospitalizations since then for the same. 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 - General Surgery consulted and following s/p Garret procedure/diverting colostomy on 12/15 - Pain regimen: Tylenol for basic pain, 5 mg oxycodone for moderate pain, 10 mg oxycodone for severe pain. IV Dilaudid now discontinued - Expected postoperative course at this point, close monitoring for nursing and surgical services - Well tolerating low fiber diet - Continue daily stoma care and education - Now more agreeable to performing physical activity - walked halls multiple times today 12/22 - Infectious disease previously consulted for recommendations - antibiotic course now completed 12/22 #Anemia | Thrombocytosis - B12 and folate WNL last admission - Ferritin is elevated however this is likely as an acute phase reaction. TSAT not able to be performed however serum iron is below the limits of detection. He would benefit from Venofer however deferred given his acute significant infection - Postop hgb remaining stable. Transfuse as needed with hgb threshold of 7, or 8 if signs of end organ ischemia - Consider Venofer infusions in the outpatient setting after resolution of current issues #DMT1.5 Home regimen includes Lantus 30U AM, lispro, metformin. Last A1c 15.8% in August 2024 - Hold home regimen - SSI. Basal insulin held Pharmacy glycemic management following. Adequate control 12/14-12/20. #VRE - Present within the wound and abdominal cultures - Stable inflammatory markers - recheck with any concerns #Hypokalemia | Hypomagnesemia - now resolved after repletion #CADcontinue atorvastatin, aspirin now resumed 12/22 #Chronic paincontinue home baclofen, oxycodone VTE PPx: Heparin Dispo: Anticipate discharge tomorrow 12/23 home with services Discontinued antibiotics Discontinued Dilaudid Resumed aspirin Admission and Anticipated Discharge Date Admission Date: December 11, 2024 Supervising Physician Co-Signing Physician Notes PA Supervision Note: I did not personally see or examine the patient today, but I verified all soriano points of VERONICA Wong's assessment and plan with the following exceptions/additions: None Subjective Patient seen and evaluated at bedside. He has been ambulating in the halls multiple times today. He is well tolerating his low fiber diet. He is had stool output in his colostomy bag today. He is adamant about being discharged home tomorrow. We discussed therapies recommendation of rehabhe declines but is agreeable to home health services. We discussed if he wants to go home tomorrow, he needs to have his pain controlled on an oral regimen. He is ag reeable to having his Dilaudid discontinued at this time. He denies any additional complaints or concerns at this time. Physical Exam Physical Exam: General: No acute distress, nondiaphoretic, well-developed, well-nourished. Iritable and agitated at times. Skin: Warm, dry. No peripheral edema noted. Cardiac: Regular rate and rhythm without murmurs gallops or rubs. Pulm: Clear to auscultation bilaterally without wheezes, rales or rhonchi. Normal respiratory effort. 100% on room air. Abdominal: Soft, slightly distended. Abdominal binder in place. Colostomy on left side with brown stool output. Incision sites healing well. Generalized tenderness on palpation. Bowel sounds present. Neuro: A&O x3. No focal neurological deficits. Results & Data Results & Data Vital Signs (Past 12 Hours) Vital Signs Temp Pulse Resp BP Pulse Ox O2 Del Method 12/22/24 14:42 98.1 F 87 18 134/76 100 Room Air 12/22/24 07:52 Room Air 12/22/24 07:08 97.7 F 81 18 124/72 92 Room Air Laboratory Results Reviewed CBC Reviewed BMP, mag PG Care Time/CCT Total # of Minutes Spent Total Time Spent with Patient: Total time spent is greater than 50% in coordination of care (as documented) at patient's floor/unit and/or counseling patient: Coding Level of Care Code 20912 SUB INP/OBS CARE MIN Diagnoses Diverticulitis of large intestine with complication K57.32 Diabetes 1.5, managed as type 1 E13.9"
[2024-12-23 06:34] LABS: Hematocrit (blood only) 27.8 % (42.0-52.0); Hemoglobin 8.8 g/dl (14.0-18.0); Mean Corpuscular Hemoglobin 27.8 pg (25.0-34.0); Mean Corpuscular Volume 87.7 fL (80.0-100.0); Platelet Count 462 K/uL (130-400); RDW Standard Deviation 52.4 fL (36.4-46.3); Red Blood Count 3.17 M/uL (4.70-6.10); White Blood Count 6.08 K/ul (4.8-10.8)
[2024-12-23 07:04] LABS: Anion Gap 10.0 (3-11); Blood Urea Nitrogen 9.0 mg/dl (6-23); Calcium 9.4 mg/dl (8.6-10.3); Carbon Dioxide 25.0 mmol/L (21-32); Chloride 104.0 mmol/L (98-107); Creatinine Clr Calc Pharmacy 90.6 ml/min; Glucose 133.0 mg/dl (70-99(Fasting)); Potassium 3.9 mmol/L (3.5-5.1); Sodium 139.0 mmol/L (136-145)
[2024-12-23 07:54] VITALS: BP 131/77; PULSE 87; RESP 17; TEMP 98.1; O2SAT 99
[2024-12-23] MEDS: ASPIRIN 81 MG ECTAB PO SCH (08:47)
--- NOTE | 2024-12-23 10:35 | Surgery Progress Note ---
Date of Service December 23, 2024 Assessment & Plan (1) Diverticulitis of large intestine with complication: Plan Doing well, status post Gage's procedure for perforated diverticulitis with fistula to skin. Surgery date was on December 15, 2024. Patient is doing well, stable from surgery standpoint for discharge to home, okay to remove every other staple. Have patient follow-up with me in a week to 10 days. Thank you Admission and Anticipated Discharge Date Admission Date: December 11, 2024 Subjective Patient doing well without any acute issues. Review of Systems Review of Systems: All systems reviewed & are unremarkable except as noted in HPI & below Physical Exam Constitutional: WD/WN, vitals as above Eyes: PERRL, conjunctivae normal, anicteric sclerae ENMT: external ear and nose normal, oropharynx normal Respiratory: Normal respiratory effort Cardiovascular: Rate/Rhythm: regular rate Gastrointestinal (Abdomen): Abdomen soft and nondistended and nontender, ostomy viable and functional. Lower midline incision with some irritation, likely will remove a few natalie Results & Data Vital Signs (Past 12 Hours) Vital Signs Temp Pulse Resp BP Pulse Ox O2 Del Method 12/23/24 09:44 Room Air 12/23/24 08:00 Room Air 12/23/24 07:53 36.7 C 87 17 131/77 99 Room Air 12/23/24 00:19 36.5 C 78 18 117/73 97 Room Air PG Care Time/CCT Total # of Minutes Spent Total Time Spent with Patient: Total time spent is greater than 50% in coordination of care (as documented) at patient's floor/unit and/or counseling patient: Coding Level of Care Code 75434 Post Operative Follow-Up Diagnoses Diverticulitis of large intestine with complication K57.32
--- NOTE | 2024-12-23 18:59 | Discharge Summary ---
Discharge Summary Date of Service December 23, 2024 Principal Dx & Hospital Course #1 = Principal Diagnosis (1) Diverticulitis of large intestine with complication: (2) Diabetes 1.5, managed as type 1: Bairon Ventura is a 64-year-old man with past medical history of complicated diverticulitis with LLQ IR drain placement x 2 for diverticular abscess, T2DM, dyslipidemia, CAD, OA, tobacco dependence, GERD, and severe protein calorie malnutrition. He returned to the ED with severe abdominal pain x 6 days and has not been out of bed during that timeframe as well. He was admitted for management of his complicated diverticulitis. #Complicated diverticulitis - longstanding history of diverticulitis since August of this year. Multiple hospitalizations since then for the same. 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 - General Surgery consulted and following s/p Ashley procedure/diverting colostomy on 12/15 - Pain regimen: Tylenol for mild pain, gabapentin 200 mg TID, 10 mg oxycodone for severe pain - Expected postoperative course at this point, close monitoring for nursing and surgical services - Well tolerating low fiber diet - continued this diet on discharge - Continue daily stoma care and education - Infectious disease previously consulted for recommendations - antibiotic course completed on 12/22 #Anemia | Thrombocytosis - B12 and folate WNL last admission - Ferritin is elevated however this is likely as an acute phase reaction. TSAT not able to be performed however serum iron is below the limits of detection. He would benefit from Venofer however deferred given his acute significant infection - Postop hgb remaining stable. Transfuse as needed with hgb threshold of 7, or 8 if signs of end organ ischemia - Consider Venofer infusions in the outpatient setting after resolution of current issues #DMT1.5 - Home regimen includes Lantus 30U AM, lispro, metformin. Last A1c 15.8% in August 2024 - Home regimen held while admitted and resumed on discharge. Utilized SSI during hospitalization #VRE - Present within the wound and abdominal cultures - Stable inflammatory markers - recheck with any concerns #Hypokalemia | Hypomagnesemia - now resolved after repletion #CADcontinue atorvastatin, aspirin #Chronic paincontinue home baclofen, oxycodone VTE PPx: Heparin Dispo: Discharged home with services 12/23 Notes For Next Care Provider Patient refused wound care education regarding his colostomy on 3 separate occasions. RN educated him as much as possible regarding his colostomy care. He is set up with home health services who can also help him manage his colostomy at home. Medication Changes From Visit Started gabapentin 200 mg 3 times daily Started vitamin C 500 mg daily Zofran 4 mg every 6 hours as needed for nausea Started docusate sodium 100 mg twice daily Admission HPI Per Admitting Provider Lorenzo is a 64-year-old man with past medical history of complicated diverticulitis with LLQ IR drain placement x 2 for diverticular abscess, T2DM, dyslipidemia, CAD, OA, tobacco dependence, GERD, and severe protein calorie malnutrition. He presented from home with severe abdominal pain x 6 days. At the time of my exam, the patient was lying in bed in no acute distress. History is very difficult to obtain due to patient being unwilling to answer most questions. He repeatedly states "it is all bad. Just an awful experience. They did a lousy job the last time I was here. I do not want to talk about it." He expresses a lot of frustration towards his son for bringing him back to the ED. When reviewing ROS, he responds "I have felt everything" but would not elaborate further. He does note that his drains have been leaking. We d iscussed his imaging findings for today and the current plan in place. He was more pleasant by the end of my visit. Vitals on admission significant for hypertension with BP 163/78, tachycardia with HR 99; vitals otherwise stable. Labs on admission are significant for anemia with hemoglobin at baseline 10.0, thrombocytosis with platelets 461, hypokalemia with potassium 3.1, anion gap of 14, and slightly elevated T. bili at 1.3. No leukocytosis. Normal lactate at 1.1. Normal procalcitonin 0.27. CT A/P on admission reveals minimal acute diverticulitis at the sigmoid colon, improved. The left lower quadrant drains are well-positioned and the collections have decreased in size with mostly gas remaining and trace fluid. There is a small portion of the proximal sigmoid colon with a thin fistula extending between the sigmoid colon and the deep collection. We discussed code status, patient wishes to be a DNR/DNI. Discharge Exam General: No acute distress, nondiaphoretic, well-developed, well-nourished. Irritable and agitated at times. Skin: Warm, dry. No peripheral edema noted. Cardiac: Regular rate and rhythm without murmurs gallops or rubs. Pulm: Clear to auscultation bilaterally without wheezes, rales or rhonchi. Normal respiratory effort. 99% on room air. Abdominal: Soft, slightly distended. Colostomy on left side with brown stool output. Incision sites healing well. Generalized tenderness on palpation. Bowel sounds present. Neuro: A&O x3. No focal neurological deficits. Discharge Plan Discharge Items Patient Disposition: Home - Home Health Services Reason For Visit: COMPLICATED DIVERTICULITIS Discharge Diagnosis: Hartmans Sigmoidectomy and creation of colostomy Condition on Discharge: Fair Activity: Per Instructions section Lifting: No more than 10 pounds Bathing Comment: may shower; no soaking in tubs/pools x 2 weeks Exercise/Sports: Wait until after follow-up appointment Driving/Machine Use: no driving while taking narcotics for pain Non-emergency contact: Primary Care Provider and Surgeon Call non-emergency contact if: you have any medication questions, your symptoms worsen, your pain is not controlled, your pain is unusual for you, you have a fever, your temperature is above 101.5, your wound has increased redness, your wound has increased drainage and your wound pain has increased Follow-up/Referrals: Jhonathan Harmon DO [Primary Care Provider] - 01/08/25 2:00 pm (Primary Care hospital follow up scheduled on 01/08/25 at 2:00 with Jhonathan Harmon) Ji Gomez MD [Surgeon] - (please call to schedule follow up in the office in 7-10 days) Diet: Low Fiber Addtl Attending Provider Instructions: Mr. Moreno, You were admitted to the hospital with complicated diverticulitis with perforation and fistula formation. You had this surgically addressed with a Gage's procedure/diverting ostomy on 12/15/[address] Gomez. You tolerated the surgery well. You have well-tolerated your low fiber diet and are having stool output in your colostomy bag now. You have completed your course of antibiotics, so no further antibiotics are needed. Home health services have been coordinated for you on discharge by your [employer]. Upon discharge from the hospital: * Follow the instructions from your surgical team listed below. * For pain, you can take Tylenol/ibuprofen as needed for mild pain. You can take oxycodone 10 mg every 6 hours as needed for severe pain. You can take baclofen 10 mg 3 times daily as needed for muscle spasms. You were also started on gabapentin 200 mg 3 times daily and can continue taking this as well. Do not drive or operate heavy machinery while taking narcotic pain medication. * You can take Zofran 4 mg every 6 hours as needed for nausea. * You were also started on vitamin C (ascorbic acid) 500 mg daily. This is available yngy-glw-mnctyey (OTC) so no prescription is needed. * You were started on docusate sodium 100 mg twice daily. This is to stimulate bowel movements. This is available vjzp-woo-hugezfk (OTC) so no prescription is needed. * Continue your home medications as prescribed, aside from the oral antibiotics. Baby aspirin was not on your home medication list so I added thiscontinue aspirin 81 mg once daily. As we discussed, you do not need to take any further antibiotics, so you do not need to complete the course of oral antibiotics you already have at home. * Follow-up with your general surgery team as directed. * Follow-up with your PCP in 1-2 weeks. Please return to the hospital if you experience any of the following: Fever of 100 1F or higher, severe pain not relieved by medication, drainage/redness/leakage from your incisions or colostomy, chest pain, difficulty breathing, confusion, passing out, unilateral deficits, or any other symptoms concerning for you. Addtl Network Intelligence Analyst Provider Instructions: SPECIAL CARE INSTRUCTIONS: * You have natalie in place that will need to be removed about 14 days from your surgical procedure. You may change dressing daily with dry gauze and medipore tape. * iodoform gauze with 4x4 gauze and medipore tape over left lower quadrant old drain site * Please care for your ostomy as you have been educated prior to discharge from the hospital * You may shower. NO soaking in pools or baths for 2 weeks * No lifting greater than 10lbs. No strenuous exercise until cleared by surgeon. Light walking is accepted. * No driving while taking narcotic pain medication; wait at least 3 days * No drinking alcohol while taking narcotic pain medication * May use Ibuprofen/Tylenol over the counter for pain as tolerated. Do not exceed 3grams of Tylenol per 24 hours * Expect some swelling and bruising. * Diet- you may resume your regular diet Call your doctor if: * Temperature above 101 degrees, nausea/vomiting, fever/chills * Pain not relieved by pain medicine ordered * There is increased drainage or redness from any incision * You have any unanswered questions or concerns [phone]. FOLLOW UP VISIT: If not already scheduled, please call the office for a follow-up visit in 7-10 days. Office Pending Studies at Discharge: Yes Studies:: surgical pathology Stand-Alone Forms: [facility] [employer], Smoking Cessation Medications and DC Order Prescriptions: New aspirin 81 mg Tablet,Delayed Release (Dr/Ec) 81 mg PO DAILY Qty: 30 0RF gabapentin 100 mg Capsule 200 mg PO TID Qty: 90 0RF ascorbic acid (vitamin C) [Vitamin C] 500 mg Tablet 500 mg PO QAM Qty: 30 0RF docusate sodium 100 mg Capsule 100 mg PO BID Qty: 60 0RF ondansetron HCl 4 mg tablet 4 mg PO Q6H PRN (Reason: nausea and vomiting) Qty: 30 0RF Continued (DME) Wheeled Walker [facility] See Rx Instructions .MEDSUPPLY Qty: 1 0RF Rx Instructions: As directed (DME) BD SafetyGlide Insulin Syringe 0.5 mL 29 gauge x 1/2" syringe See Rx Instructions .Route Qty: 100 2RF Rx Instructions: USE TO INJECT INSULIN FIVE TIMES A DAY metformin 1,000 mg tablet 1,000 mg PO BID Qty: 180 2RF (DME) needle (disp) 30 gauge 30 gauge x 1" needle See Rx Instructions .Route Qty: 100 0RF Rx Instructions: As directed (DME) blood-glucose meter [OneTouch Ultra2 Meter] [facility] See Rx Instructions .Route Qty: 1 0RF Rx Instructions: As directed (DME) OneTouch Ultra Test Strip See Rx Instructions .Route Qty: 100 1RF Rx Instructions: As directed (DME) lancets [OneTouch UltraSoft 2 Lancet] 30 gauge misc See Rx Instructions .Route Qty: 100 1RF Rx Instructions: As directed (DME) FreeStyle Sebastián 3 Troy Mis See Rx Instructions .Route Qty: 1 0RF Rx Instructions: As directed (DME) FreeStyle Sebastián 3 Plus Sensor Device See Rx Instructions .Route Qty: 1 5RF Rx Instructions: As directed insulin lispro 100 unit/mL solution 4 unit subcut ACHS Qty: 15 5RF Rx Instructions: 12/11/24 : PER PT, "HARDLY EVER TAKE THIS MED". baclofen 10 mg tablet 10 mg PO TID PRN (Reason: muscle spasm) Qty: 90 2RF oxycodone 10 mg tablet 10 mg PO Q6H PRN (Reason: pain) Qty: 120 0RF insulin glargine [Lantus U-100 Insulin] 100 unit/mL solution 30 unit SC QAM Discontinued metronidazole 500 mg tablet 500 mg PO TID Rx Instructions: BEGIN 11/20/24 X 14 DAYS ciprofloxacin HCl 500 mg tablet 500 mg PO BID Rx Instructions: BEGIN 11/20/24 X 14 DAYS Discharge Orders: Discharge Order (Routine); Ordered 12/23/24 Ordered By: Estelita Rice/Other Patient Handouts: Low-Fiber Diet, Managing Type 2 Diabetes, Colostomy: Changing Your Pouch, Ostomy Care: Emptying Your Pouch, Wound Packing Dc Admission Data Admit Date/Time: 12/11/24 17:16 Attending Provider: Ashley Watts Admit Provider: Riki Maria Primary Care Provider: Jhonathan Harmon Other Providers: [facility],Home [facility]; Riki Maria; Justus Garcia Other Interventions: Discharge Summary Assessment (RN) Last Done: 12/23/24 11:51 Hospital Stay Data Consultations 12/11/24 16:09 ED Decision to Admit Stat 12/11/24 18:30 Consult General Surgery Routine 12/15/24 12:13 Consult Infectious Diseases Stat Procedures Performed Operation Date: 12/15/24 07:00 Actual Procedures s Laparoscopy, laparoscopic ashley's procedure, ostomy creation - Ji Gomez MD p Cystoscopy, bilateral ureteral stents placement, garcia placement(Bilateral) - Davy Tsai DO Diagnostic Imagining Performed Abdomen/Pelvis CT 12/11/24 14:[address] WITH IV CONTRAST CT DOSE: 1692.73 mGy.cm HISTORY: abd pain, IR drain not working TECHNIQUE: Multiaxial CT images of the abdomen and pelvis were performed following the IV administration of 90 cc of Optiray, A dose lowering technique was utilized adhering to the principles of ALARA. COMPARISON STUDY: 11/23/2024 FINDINGS: ABDOMEN: There is a gallstone without evidence of acute cholecystitis. Liver, spleen, and adrenal glands are unremarkable. Stable small calcification at the pancreatic body with mild pancreatic ductal dilatation. Pancreas is otherwise unremarkable. Kidneys show no hydronephrosis or calculi. Stable small cyst upper pole left kidney. There are moderate atherosclerotic calcifications. No abdominal aortic aneurysm. Pelvis: Prostate is enlarged. Urinary bladder is mildly distended. There are 2 anterior left lower quadrant drains, one within the subcutaneous collection of fluid and gas and one within the subcutaneous fascial collection of fluid and gas. Both collections have decreased in size with predominantly gas remaining and only trace fluid. There is sigmoid diverticulosis. There is mild wall thickening at the proximal sigmoid colon with minimal adjacent inflammation, improved. There is a small perforation at the proximal sigmoid colon with a thin fistula extending between the sigmoid colon and the deep collection. No other bowel inflammation or obstruction seen. Normal appendix. No new areas of free fluid or free air. No new abscess. There is stable wall thickening and reactive formation at the superior left lateral aspect of the urinary bladder with no gas seen within the urinary bladder. Osseous structures: There is lumbar degenerative disc disease. There are severe degenerative changes at the left hip. IMPRESSION: 1. Minimal acute diverticulitis at the sigmoid colon, improved. 2. The left lower quadrant drains are well-positioned and the collections have decreased in size with mostly gas remaining and trace fluid. 3. There is a small perforation of the proximal sigmoid colon with a thin fistula extending between the sigmoid colon and the deep collection. 4. Stable wall thickening and reactive inflammation at the superior left lateral aspect of the urinary bladder with no gas seen within the urinary bladder. 5. No adverse change seen. Otherwise as described. ACT 112: Negative or not required by law. The above report was generated using voice recognition software. It may contain grammatical, syntax or spelling errors. Electronically signed by: Henrique Esposito M.D. 12/11/2024 3:31 PM Pending Results Patient Have Any Pending Studies at Discharge: Yes Discharge Instructions Given to Patient (Per Discharging Provider) Mr. Moreno, Eric were admitted to the hospital with complicated diverticulitis with perforation and fistula formation. You had this surgically addressed with a Gage's procedure/diverting ostomy on 12/15/[address] Gomez. You tolerated the surgery well. You have well-tolerated your low fiber diet and are having stool output in your colostomy bag now. You have completed your course of antibiotics, so no further antibiotics are needed. Home health services have been coordinated for you on discharge by your [employer]. Upon discharge from the hospital: * Follow the instructions from your surgical team listed below. * For pain, you can take Tylenol/ibuprofen as needed for mild pain. You can take oxycodone 10 mg every 6 hours as needed for severe pain. You can take baclofen 10 mg 3 times daily as needed for muscle spasms. You were also started on gabapentin 200 mg 3 times daily and can continue taking this as well. Do not drive or operate heavy machinery while taking narcotic pain medication. * You can take Zofran 4 mg every 6 hours as needed for nausea. * You were also started on vitamin C (ascorbic acid) 500 mg daily. This is available [id number]-[id number] (OTC) so no prescription is needed. * You were started on docusate sodium 100 mg twice daily. This is to stimulate bowel movements. This is available osws-ymo-ipuiyut (OTC) so no prescription is needed. * Continue your home medications as prescribed, aside from the oral antibiotics. Baby aspirin was not on your home medication list so I added thiscontinue aspirin 81 mg once daily. As we discussed, you do not need to take any further antibiotics, so you do not need to complete the course of oral antibiotics you already have at home. * Follow-up with your general surgery team as directed. * Follow-up with your PCP in 1-2 weeks. Please return to the hospital if you experience any of the following: Fever of 100 1F or higher, severe pain not relieved by medication, drainage/redness/leakage from your incisions or colostomy, chest pain, difficulty breathing, confusion, passing out, unilateral deficits, or any other symptoms concerning for you. Supervising Physician Co-Signing Physician Notes VERONICA Supervision Note: I did not personally see or examine the patient today, but I verified all soriano points of VERONICA Wong's assessment and plan with the following exceptions/additions: None Total Time Total Time Spent Total Time Spent (In Minutes): Greater than 30 minutes spent completing this discharge process including direct patient care, medication reconciliation, documentation, review of labs and images, and coordination of care. Coding Level of Care Code 38678 INP/OBS DISCH >30 MIN Diagnoses Diverticulitis of large intestine with complication K57.32 Diabetes 1.5, managed as type 1 E13.9
== END 2024-12-23 14:01 | disposition home health service (06) | DRG 330 ==
LOC: ED 13:47 → SUATTDRO 17:16 → 3E 17:16